=== PATIENT | female | born 1950 | race Caucasian/White ===

== ENCOUNTER 2018-05-04 11:40 | Outpatient (REF) | payer MEDICARE, BC, SELFPAY | END 2018-05-04 12:00 | LOC: NCHCN 11:40 | PROVIDERS: PCP Internal Medicine; Visit Provider Nurse Practitioner Family | DX: N89.8 Other specified noninflammatory disorders of vagina (principal); B37.2 Candidiasis of skin and nail; E11.9 Type 2 diabetes mellitus without complications | CPT/HCPCS: 87480; 87510; 87660 ==

== ENCOUNTER 2018-05-11 00:49 | Outpatient (CLI) | payer MEDICARE, BC, SELFPAY ==
--- NOTE | 2018-05-11 12:00 | DI.MAMMO_ITS ---
SYMPTOM/DIAGNOSIS: SCREENING, FAMILY H/O BREAST CA, Z80.3 MAMMOGRAMS: Mammograms were interpreted according to the usual protocol including computer analysis with CAD system, tomosynthesis and C view imaging. Comparison is made with exams from 8411-9417. The breasts are composed of scattered fibroglandular densities, breast density, Category B. No suspicious masses or suspicious microcalcifications are seen. There has been no significant change. IMPRESSION: Category 1, negative mammogram. Yearly screening mammography is recommended. RUST ASSESSMENT OF FINDINGS: Negative. Category 1. Patient will receive a letter notifying them of these results. BI-RADS category B. There are scattered areas of fibroglandular density.
== END 2018-05-11 01:09 ==
PROVIDERS: PCP Internal Medicine; Visit Provider Nurse Practitioner Family
DX: Z12.31 Encounter for screening mammogram for malignant neoplasm of breast (principal); Z80.3 Family history of malignant neoplasm of breast
CPT/HCPCS: 77063; 77067

== ENCOUNTER 2018-08-03 12:16 | Outpatient (REF) | payer MEDICARE, BC, SELFPAY ==
[2018-08-03 21:32] LABS: Abs Immature Grans 0.01 k/cumm (0.0-0.09); Absolute Basophil Count 0.02 k/cumm (0.0-0.2); Absolute Eosinophil Count 0.29 k/cumm (0.0-0.7); Absolute Monocyte Count 0.66 k/cumm (0.11-0.7); Basophils % 0.3; Eosinophils % 4.2; HCT 39.9 % (36.0-46.0); HGB 12.9 g/dL (12.0-15.5); Immature Grans % 0.1; Lymphocytes % 27.2; Mean Corp. HGB Concentration 32.3 g/dL (32.0-36.0); Mean Corpuscular Hemoglobin 28.4 pg (27.0-33.0); Mean Corpuscular Volume 87.7 fL (80-95); Mean Platelet Volume 12.5 fL (8.0-11.0); Monocytes % 9.5; Neutrophils % 58.7; Platelet Count 261 x1000/uL (130-400); RBC 4.55 m/cumm (4.00-5.20); RBC Distribution Width 15.7 % (11.7-14.6); White Blood Cell Count 6.98 k/cumm (4.4-10.8)
[2018-08-03 21:34] LABS: Iron 56 ug/dL (50-175)
[2018-08-03 21:43] LABS: ALT 27 U/L (12-78); AST 16 U/L (15-37); Albumin 3.7 g/dL (3.4-5.0); Alkaline Phosphatase 86 U/L (46-116); Anion Gap 14.5 mmol/L (3-11); BUN 15 mg/dL (7-18); Bilirubin, Total 0.5 mg/dL (0.2-1.0); CO2 24.5 mmol/L (21.0-32.0); Calcium 9.7 mg/dL (8.5-10.1); Chloride 103 mmol/L (98-107); Glucose 131 mg/dL (70-100); Potassium 4.7 mmol/L (3.5-5.1); Sodium 142 mmol/L (136-145); TSH (W/Ref FT4) 0.57 uIU/mL (0.358-3.74); Total Protein 6.9 g/dL (6.4-8.2)
== END 2018-08-03 12:36 ==
LOC: NCHCN 12:16
PROVIDERS: PCP Internal Medicine; Visit Provider Nurse Practitioner Family
DX: D50.9 Iron deficiency anemia, unspecified (principal); I10 Essential (primary) hypertension; E11.9 Type 2 diabetes mellitus without complications; F32.9 Major depressive disorder, single episode, unspecified; G47.30 Sleep apnea, unspecified
CPT/HCPCS: 80053; 83540; 84443; 85025

== ENCOUNTER 2019-09-03 14:51 | Outpatient (REF) | payer MEDICARE, BC, SELFPAY ==
[2019-09-03 21:34] LABS: Abs Immature Grans 0.01 k/cumm (0.0-0.09); Absolute Basophil Count 0.01 k/cumm (0.0-0.2); Absolute Eosinophil Count 0.23 k/cumm (0.0-0.7); Absolute Lymphocyte Count 1.95 k/cumm (1.2-3.4); Absolute Monocyte Count 0.73 k/cumm (0.11-0.7); Absolute Neutrophil Count 4.25 k/cumm (1.2-6.7); Basophils % 0.1; Eosinophils % 3.2; HCT 41.3 % (36.0-46.0); HGB 13.1 g/dL (12.0-15.5); Immature Grans % 0.1 %; Lymphocytes % 27.2; Mean Corp. HGB Concentration 31.7 g/dL (32.0-36.0); Mean Corpuscular Hemoglobin 27.8 pg (27.0-33.0); Mean Corpuscular Volume 87.5 fL (80-95); Mean Platelet Volume 12.5 fL (8.0-11.0); Monocytes % 10.2; Neutrophils % 59.2; Platelet Count 274 x1000/uL (130-400); RBC 4.72 m/cumm (4.00-5.20); RBC Distribution Width 15.3 % (11.7-14.6); White Blood Cell Count 7.18 k/cumm (4.4-10.8)
[2019-09-03 21:42] LABS: Iron 56 ug/dL (50-170)
[2019-09-03 21:53] LABS: ALT 23 U/L (14-59); AST 17 U/L (15-37); Albumin 3.7 g/dL (3.4-5.0); Alkaline Phosphatase 80 U/L (46-116); Anion Gap 8.7 mmol/L (3-11); BUN 21 mg/dL (7-18); Bilirubin, Total 0.5 mg/dL (0.2-1.0); CO2 27.3 mmol/L (21.0-32.0); CREATININE 0.71 mg/dL (0.55-1.02); Calcium 9.3 mg/dL (8.5-10.1); Chloride 102 mmol/L (98-107); Glucose 95 mg/dL (74-106); Potassium 4.6 mmol/L (3.5-5.1); Sodium 138 mmol/L (136-145); TSH (W/Ref FT4) 0.49 uIU/mL (0.36-3.74); Total Protein 6.8 g/dL (6.4-8.2)
== END 2019-09-03 15:11 ==
LOC: NCHCN 14:51
PROVIDERS: PCP Internal Medicine; Visit Provider Nurse Practitioner Family
DX: D50.9 Iron deficiency anemia, unspecified (principal); B37.2 Candidiasis of skin and nail; M85.80 Other specified disorders of bone density and structure, unspecified site; M19.90 Unspecified osteoarthritis, unspecified site; F32.9 Major depressive disorder, single episode, unspecified; E11.9 Type 2 diabetes mellitus without complications; I10 Essential (primary) hypertension; D12.6 Benign neoplasm of colon, unspecified; K76.0 Fatty (change of) liver, not elsewhere classified; R73.03 Prediabetes; E78.5 Hyperlipidemia, unspecified
CPT/HCPCS: 80053; 83540; 84443; 85025

== ENCOUNTER → 2019-11-05 10:33 | Outpatient (BNVA) | payer MEDICARE, BC, SELFPAY | PROVIDERS: PCP Internal Medicine; Referring Provider Internal Medicine; Visit Provider Physical Therapy Assistant | DX: Z12.11 Encounter for screening for malignant neoplasm of colon (principal); Z86.010 Personal history of colon polyps; E11.9 Type 2 diabetes mellitus without complications; Z79.4 Long term (current) use of insulin; I10 Essential (primary) hypertension ==

== ENCOUNTER 2019-11-22 11:13 | Day surgery (SDC) | payer MEDICARE, BC, SELFPAY ==
--- NOTE | 2019-11-22 06:52 | W.COLOREPORT ---
Date of service: 11/22/19 Time of Service: 12:23 Colonoscopy Report Date of procedure: 11/22/19 Pre-op diagnosis general: Hx of polyps Post-op diagnosis procedure note: same Procedure: Colonoscopy Surgeon: Zahida Martin Anesthesia proc note operative: other (General/ ASA 3/Ishmael You, PADMA) Estimated blood loss (mL): 0 Pathology: none sent Complications: None Disposition: same day Indications: The patient is here for Colonoscopy pre-op. Her last screening was in 2014 and was remarkable for tubular adenoma. She has no family history of colon cancer. She has not had any bowel habit changes. -Discussed colonoscopy bowel prep as well as the procedure. Discussed possible complications of the procedure to include bleeding, pain, perforation, missed small lesion/polyp, sore throat, aspiration and adverse reaction to the medications. Questions were answered to patient?s satisfaction. No guarantees were implied or given. Prep: Miralax/Dulcolax Procedure Start Time: 12:23 Procedure End Time: 12:52 Retraction Time: 16 minutes Findings: Normal colon Procedure Description: After informed consent was obtained the patient was taken to the procedure room and placed in a left decubitous position. Monitors were applied and a time out was done. The patients name, date of , procedure, allergies to medications and metal in their body was reviewed. The patient was then sedated. Once sedated and comfortable a rectal exam was done. External exam was normal. Internal exam revealed a normal sphincter tone and no palpable masses. The scope was then introduced and retro-flexed. No internal hemorrhoids were identified. The scope was then advanced to the cecum without difficulty. The ileocecal valve and appendiceal orifice were identified. The prep was adequate. The scope was then slowly retracted over 16 minutes back into the rectum. There were no polyps and no diverticula. The scope was removed and the patient was woken up and taken back to Same day surgery in stable condition. The patient tolerated the procedure well and there were no immediate complications. Follow up: The patient should follow up in 5 years unless they develop changes in bowel habits or other new gastrointestinal complaints.
--- NOTE | 2019-11-22 06:53 | W.PM.DSUDISC ---
Discharge Plan Disposition Patient Disposition: HOME Condition: Good Discharge Details Reason For Visit: colonoscopy Attending Provider: Zahida Martin Primary Care Provider: Mainor Bravo Home Meds and New Rx's Prescriptions: Continued acetaminophen [Tylenol] 325 MG tablet 650 mg PO Q4H PRN RF: 0 aspirin [Aspirin Low-Strength] 81 MG tablet,chewable 81 mg PO DAILY RF: 0 omeprazole 20 mg capsule,delayed release(DR/EC) 20 mg PO DAILY RF: 0 Lantus Solostar U-100 Insulin 100 unit/mL (3 mL) insulin pen 55 unit subcut HS RF: 0 glipizide 5 mg tablet 10 mg PO DAILY RF: 0 Jardiance 10 mg tablet 10 mg PO DAILY RF: 0 ascorbic acid (vitamin C) 500 mg capsule PO RF: 0 ferrous gluconate 324 mg (37.5 mg iron) tablet 324 mg PO DAILY RF: 0 cetirizine [Zyrtec] 10 mg tablet 10 mg PO DAILY PRNRF: 0 simvastatin 20 mg tablet 40 mg PO HS RF: 0 fluoxetine 20 mg capsule 20 mg PO DAILY RF: 0 levothyroxine 200 mcg tablet 225 mcg PO DAILY RF: 0 Adult Probiotic 3 billion cell capsule 3,000 mmu cells PO DAILY RF: 0 calcium carbonate-vit D3-min 600 mg calcium- 400 unit tablet 1 tab PO BID RF: 0 amoxicillin 500 mg capsule 500 mg PO PRN RF: 0 lisinopril 5 MG tablet 5 mg PO DAILY RF: 0 metformin [Glucophage] 1,000 MG tablet 1 tab PO BID RF: 0 multivitamin 1 EACH capsule 1 cap PO DAILY RF: 0 Discontinued bisacodyl [Dulcolax (bisacodyl)] 5 mg tablet,delayed release (DR/EC) 5 mg PO ONCE Qty: 4 RF: 0 polyethylene glycol 3350 17 gram/dose powder 238 g PO ONCE Qty: 238 RF: 0 Discharge Instructions Additional Instructions: Findings: normal colon Follow up: 5 years Please call if you develop: fevers >101.5 Nausea or Vomiting Abdominal pain that is not transient DAY SURGERY UNIT POST ENDOSCOPY INSTRUCTIONS 1. Because there will be medication in your system for the next 24 hours, you may feel a little sleepy. Your coordination will be affected. Therefore: a. Do not drive or operate dangerous equipment for 24 hours. b. Do not drink alcohol beverages for 24 hours (not even beer). c. Plan to go home and rest for the day. 2. Generally there are no restrictions on your activity after a day or so has gone by, but you may feel a bit fatigued for a few days. 3 After you arrive home you may have a light meal and return to a normal diet as you can tolerate it without feeling sick to your stomach. 4. After surgery, you may feel pain or discomfort. This should be only transient, but if it persists please contact your doctor. 5. If there are any questions regarding the findings of your procedure, please feel free to contact your doctor. 6. If you are unable to contact your doctor with a problem, contact the hospital at [phone]. 7. Continue all your regular medications unless directed otherwise. I understand the above instructions and have no questions. Signature of Patient or Responsible Adult Escort Date/Time Name of Responsible Adult Escort Signature of Nurse Date/Time Activity:: Activity as Tolerated Diet:: As Tolerated Discharge Orders Discharge Orders: Discharge Order (Routine); Ordered 11/22/19 Ordered By: Zahida Martin
[2019-11-22 11:29] VITALS: BP 154/79; PULSE 70; RESP 18; TEMP 36.5; O2SAT 98
[2019-11-22] MEDS: Lactated Ringers 1,000 ML 80 ML IV ×2 (11:50→12:48)
[2019-11-22 13:30] VITALS: BP 142/78; PULSE 79; RESP 16; TEMP 36.2; O2SAT 94
== END 2019-11-22 14:00 | disposition home or self-care (01) ==
PROVIDERS: PCP Internal Medicine; Visit Provider Surgery
PROC: 0DJD8ZZ Inspection of Lower Intestinal Tract, Via Natural or Artificial Opening Endoscopic (ICD-10-PCS; CPT 45378; principal; 2019-11-22 12:30)
DX: Z12.11 Encounter for screening for malignant neoplasm of colon (principal); Z86.010 Personal history of colon polyps; E11.9 Type 2 diabetes mellitus without complications; E03.9 Hypothyroidism, unspecified
CPT/HCPCS: G0105; J2001

== ENCOUNTER 2019-11-25 00:16 | Outpatient (CLI) | payer MEDICARE, BC, SELFPAY ==
--- NOTE | 2019-11-25 15:25 | DI.DEXA_ITS ---
EXAM: XR DEXA BONE DENSITY W/WO SAMUEL CLINICAL HISTORY: DISORDER OF BONE DENSITY M85.88, PREVENTIVE HEALTH CARE Z00.00 TECHNIQUE: COMPARISON: No exams were available for comparison FINDINGS: DEXA scan was performed according to the usual protocol. Findings for left hip scanning are T-score -0.7 with left femoral neck T-score -1 point. Prior study of August 2016 showed left hip T-score -0.7. Lumbar spine scan shows T-score 1.6. Prior study of 2016 showed lumbar T-score 0.8. Left forearm scanning shows T-score -0.7, prior study of 2016 showed T-score -1.0. IMPRESSION: Findings are consistent with osteopenia according to the WHO criteria. Lateral vertebral scanogram s hows no evidence of a vertebral compression fracture. RADIATION DOSE DELIVERED: Total DLP
--- NOTE | 2019-11-25 15:49 | DI.MAMMO_ITS ---
EXAM: MAMMO SCREENING CLINICAL HISTORY: SCREENING Z12.31 TECHNIQUE: Mammograms were interpreted according to the usual protocol including computer analysis w [employer] CAD system, tomosynthesis and C-view imaging. COMPARISON: FINDINGS: Breasts are of moderate density with fairly symmetrical distribution of fibroglandular tissue. No do minant mass or clumped microcalcification is identified in either breast. The current examination is compared with previous examinations including February 2017 and April 2018 and there has been no pio s interval change in appearance in comparison with the prior studies. IMPRESSION: No specific evidence of malignancy at this time. Routine screening examinations are suggested at yea rly intervals due to the family history of breast carcinoma. BI-RADS Category 1 - Negative Breast Density - Category B - Scattered areas of fibroglandular density
== END 2019-11-25 00:36 ==
PROVIDERS: PCP Internal Medicine; Visit Provider Nurse Practitioner Family
DX: Z12.31 Encounter for screening mammogram for malignant neoplasm of breast (principal); Z80.3 Family history of malignant neoplasm of breast; M85.88 Other specified disorders of bone density and structure, other site; Z00.00 Encounter for general adult medical examination without abnormal findings
CPT/HCPCS: 77063; 77067; 77080

== ENCOUNTER 2020-06-27 10:40 | Outpatient (REF) | payer MEDICARE, BC, SELFPAY ==
[2020-06-27 13:58] LABS: Abs Immature Grans 0.02 10^3/uL (0.0-0.06); Absolute Basophil Count 0.02 10^3/uL (0.0-0.2); Absolute Eosinophil Count 0.32 10^3/uL (0.0-0.7); Absolute Lymphocyte Count 1.53 10^3/uL (1.2-3.4); Absolute Monocyte Count 0.63 10^3/uL (0.1-0.8); Absolute Neutrophil Count 4.48 10^3/uL (1.2-6.7); Basophils % 0.3; Eosinophils % 4.6; HCT 40.8 % (36.0-46.0); HGB 12.9 g/dL (11.2-15.7); Immature Grans % 0.3; Lymphocytes % 21.9; MCH 27.6 pg (27.0-33.0); MCHC 31.6 % (32.0-36.0); MCV 87.2 fL (80-95); MPV 12.1 fL (8.0-11.0); Neutrophils % 63.9; Nucleated RBC 0 %; Platelet Count 264 10^3/uL (130-400); RBC 4.68 10^6/uL (3.93-5.22); RDW-SD 48.3 fL
[2020-06-27 14:29] LABS: Iron 51 ug/dL (50-170); Total Iron Binding Capacity 379 ug/dL (250-450); Transferrin Sat 13 % (15-50)
[2020-06-27 14:33] LABS: AST 12 U/L (15-37); Albumin 3.9 g/dL (3.4-5.0); Alkaline Phosphatase 82 U/L (46-116); Anion Gap 12.4 mmol/L (3-11); Bilirubin, Total 0.6 mg/dL (0.2-1.0); CO2 24.6 mmol/L (21.0-32.0); CREATININE 0.8 mg/dL (0.55-1.02); Calcium 9.4 mg/dL (8.5-10.1); Chloride 103 mmol/L (98-107); Ferritin 29 ng/mL (8-252); Glucose 112 mg/dL (74-106); Potassium 4.6 mmol/L (3.5-5.1); Sodium 140 mmol/L (136-145)
[2020-06-27 14:45] LABS: ALT 24 U/L (14-59); BUN 23 mg/dL (7-18)
[2020-06-27 15:07] LABS: FREE T4 1.39 ng/dL (0.76-1.46)
== END 2020-06-27 10:41 | disposition home or self-care (01) ==
LOC: NCHCN 10:40
PROVIDERS: PCP Internal Medicine; Visit Provider Nurse Practitioner Family
DX: D50.9 Iron deficiency anemia, unspecified (principal); E11.9 Type 2 diabetes mellitus without complications; I10 Essential (primary) hypertension; K30 Functional dyspepsia
CPT/HCPCS: 80053; 82728; 83540; 83550; 84439; 84443; 85025

== ENCOUNTER 2020-08-10 13:50 | Outpatient (REF) | payer MEDICARE, BC, SELFPAY ==
[2020-08-10 14:41] LABS: TSH (W/Ref FT4) 0.44 uIU/mL (0.36-3.74)
== END 2020-08-10 13:51 | disposition home or self-care (01) ==
LOC: NCHCN 13:50
PROVIDERS: PCP Internal Medicine; Visit Provider Nurse Practitioner Family
DX: E03.9 Hypothyroidism, unspecified (principal)
CPT/HCPCS: 84443

== ENCOUNTER 2020-11-28 01:08 | Outpatient (CLI) | payer MEDICARE, BC, SELFPAY ==
--- NOTE | 2020-11-28 11:46 | DI.MAMMO_ITS ---
Exam(s) MAMMO SCREENING EXAM: MAMMO SCREENING CLINICAL HISTORY: SCREENING,FAMILY H/O BREAST CA,Z80.3,Z12.39. TECHNIQUE: Bilateral full field digital CC and MLO mammographic images were obtained with 3D tomosyn thesis and utilizing computer aided detection (CAD). COMPARISON: Prior mammograms dating back to 2011, the most recent being November 2019. Significant family history here. Both her mother and 2 aunts were apparently diagnosed with breast c ancer. FINDINGS: There has been no significant change in the appearance and distribution of the fibroglandular tissue. A new ground of peripherally calcified small nodule in the anterior lateral aspect of the right valerie ast has the appearance of benign calcified oil cyst. In the opposite-left breast 3D cc imaging there is a noncalcified well-defined nodule located 14 cm i n from the nipple which is unchanged from prior studies therefore benign. There are no new spiculated masses nor malignant appearing microcalcification groups. There is no significant architectural distortion nor skin thickening-retraction. IMPRESSION: Benign findings. No radiographic evidence of malignancy. BI-RADS Category 2 - Benign Findings Breast Density - Category B - Scattered areas of fibroglandular density Breast density Category C or D implies that the patient has dense breast tissue. Dense breast tissue can make it harder to find cancer on a mammogram. Dense breast tissue is also associated with an incr eased risk of breast cancer. This information about the result of the mammogram report was provided to the patient to raise their awareness. Use this report when you speak with the patient about their risks for breast cancer, which includes their family history. At that time, you may recommend additional screening tests (Ultrasoun d or MRI) as these tests may add significant information. A negative radiographic report should not delay biopsy if a dominant or clinically suspicious mass is present. Up to ten percent of cancers are not identified on mammography. A negative report may reinforce clinical impression. Adenosis and dense breasts may obscure an underlying neoplasm. False positive reports average 6 to 10%. Patient will receive a letter notifying them of these results.
== END 2020-11-28 01:28 ==
PROVIDERS: PCP Internal Medicine; Visit Provider Nurse Practitioner Family
DX: Z12.31 Encounter for screening mammogram for malignant neoplasm of breast (principal); Z80.3 Family history of malignant neoplasm of breast
CPT/HCPCS: 77063; 77067

== ENCOUNTER 2021-07-03 16:56 | Outpatient (REF) | payer MEDICARE, SELFPAY ==
[2021-07-03 16:16] LABS: Abs Immature Grans 0.01 10^3/uL (0.0-0.06); Absolute Basophil Count 0.03 10^3/uL (0.0-0.2); Absolute Eosinophil Count 0.28 10^3/uL (0.0-0.7); Absolute Lymphocyte Count 1.65 10^3/uL (1.2-3.4); Absolute Neutrophil Count 3.74 10^3/uL (1.2-6.7); Basophils % 0.5; Eosinophils % 4.4; HCT 41.9 % (36.0-46.0); Immature Grans % 0.2; Lymphocytes % 26.1; MCH 27.6 pg (27.0-33.0); MCV 89 fL (80-95); MPV 12.2 fL (8.0-11.0); Monocytes % 9.5; Neutrophils % 59.3; Platelet Count 230 10^3/uL (130-400); RBC 4.71 10^6/uL (3.93-5.22); RDW 14.7 % (11.7-14.6); RDW-SD 48.1 fL; WBC 6.31 10^3/uL (4.4-10.8)
[2021-07-03 16:53] LABS: Iron 63 ug/dL (50-170); Total Iron Binding Capacity 344 ug/dL (250-450); Transferrin Sat 18 % (15-50)
[2021-07-03 17:24] LABS: AST 16 U/L (15-37); Albumin 3.9 g/dL (3.4-5.0); Alkaline Phosphatase 83 U/L (46-116); Anion Gap 12.8 mmol/L (3-11); BUN 19 mg/dL (7-18); Bilirubin, Total 0.5 mg/dL (0.2-1.0); CO2 23.2 mmol/L (21.0-32.0); CREATININE 0.8 mg/dL (0.55-1.02); Chloride 105 mmol/L (98-107); Ferritin 36 ng/mL (8-252); Glucose 142 mg/dL (74-106); Potassium 4.4 mmol/L (3.5-5.1); Sodium 141 mmol/L (136-145); TSH (W/Ref FT4) 0.44 uIU/mL (0.36-3.74); Total Protein 6.9 g/dL (6.4-8.2); Vitamin B12 329 pg/mL (193-986)
[2021-07-03 17:36] LABS: ALT 26 U/L (14-59); Magnesium 1.9 mg/dL (1.8-2.4)
[2021-07-04 10:51] LABS: Syphilis Serology (RPR) Negative (Negative)
== END 2021-07-03 16:57 | disposition home or self-care (01) ==
LOC: NCHCN 16:56
PROVIDERS: PCP Internal Medicine; Visit Provider Nurse Practitioner Family
DX: E11.9 Type 2 diabetes mellitus without complications (principal); I10 Essential (primary) hypertension; M79.9 Soft tissue disorder, unspecified; K59.00 Constipation, unspecified; M25.50 Pain in unspecified joint; D50.9 Iron deficiency anemia, unspecified; Z79.899 Other long term (current) drug therapy
CPT/HCPCS: 80053; 82607; 82728; 83540; 83550; 83735; 84443; 85025; 86592

== ENCOUNTER → 2021-07-26 01:25 | Outpatient (CLI) | payer MEDICARE, SELFPAY ==
--- NOTE | 2021-07-26 | DI.US_ITS ---
Exam(s) US SOFT TISSUE EXTREMITY EXAM: US SOFT TISSUE EXTREMITY CLINICAL HISTORY: LEFT FOOT SWELLING R22.42 MASS M79.9 VARICOSE VEINS I83.90. TECHNIQUE: Ultrasound was performed using standard protocol. COMPARISON: US BILATERAL EXTREMITY US from 01/25/2013 FINDINGS: Sonographic assessment utilizing grayscale and color Doppler imaging was performed and targeted to th e area of clinical concern. Area of concern is on the anterior aspect of the left distal calf. There is no obvious skin dehiscence. However, there is an abnormal hypoechoic area in the superficia l aspect of the subcutaneous fat, this measuring approximately 1.5 x 2.3 x 0.7 cm. This area is somewhat hypoechoic compared to the surrounding subcutaneous fat and appears hyperemic. This area is hyperemic on color Doppler interrogation. There are no obvious thrombosed veins in thi s immediate region. IMPRESSION: Above findings are most probably consistent with a developing subcutaneous infectious-inflammatory pr ocess. Follow-up recommended to rule out developing abscess.
== END ==
PROVIDERS: PCP Internal Medicine; Visit Provider Nurse Practitioner Family
DX: I83.90 Asymptomatic varicose veins of unspecified lower extremity (principal); R22.42 Localized swelling, mass and lump, left lower limb; M79.9 Soft tissue disorder, unspecified
CPT/HCPCS: 76881

== ENCOUNTER → 2021-12-04 02:39 | Outpatient (CLI) | payer MEDICARE, SELFPAY ==
--- NOTE | 2021-12-04 12:30 | DI.MAMMO_ITS ---
Exam(s) MAMMO SCREENING EXAM: MAMMO SCREENING CLINICAL HISTORY: SCREENING, Z12.39; FAMILY H/O BREAST CA, Z80.3 TECHNIQUE: Bilateral full field digital CC and MLO mammographic images were obtained with 3D tomosyn thesis and utilizing computer aided detection (CAD). COMPARISON: Available for comparison. FINDINGS: Masses/Architectural Distortion: None seen. Microcalcifications: No suspicious pleomorphic-type are seen. Skin Thickening/Nipple Retraction: None. IMPRESSION: 1. No significant interval change with no specific features of malignancy noted. 2. Unless there is more urgent need, screening mammography is recommended, as per [employer] guidelines. BI-RADS Category 1 - Negative Breast Density - Category B - Scattered areas of fibroglandular density Breast density category C or D implies that the patient has dense breast tissue. Dense breast tissue is very common and is not abnormal but dense breast tissue can make it harder to find cancer on a ma mmogram. Also, dense breast tissue may increase their breast cancer risk. This information about the result of the mammogram report was provided to the patient to raise their awareness. Use this report when you speak with the patient about their risks for breast cancer, which includes their family hist ory. At that time, you may recommend for more screening tests (Ultrasound or MRI) as they might be us eful based on their risk. A negative radiographic report should not delay biopsy if a dominant or clinically suspicious mass is present. Up to ten percent of cancers are not identified on mammography. A negative report may reinforce clinical impression. Adenosis and dense breasts may obscure an underlying neoplasm. False positive reports average 6 to 10%. Patient will receive a letter notifying them of these results.
== END ==
PROVIDERS: PCP Internal Medicine; Visit Provider Nurse Practitioner Family
DX: Z12.31 Encounter for screening mammogram for malignant neoplasm of breast (principal)
CPT/HCPCS: 77063; 77067

== ENCOUNTER 2022-08-19 15:58 | Outpatient (REF) | payer MEDICARE, SELFPAY ==
[2022-08-19 23:15] LABS: Abs Immature Grans 0.04 10^3/uL (0.0-0.06); Absolute Basophil Count 0.06 10^3/uL (0.0-0.2); Absolute Eosinophil Count 0.25 10^3/uL (0.0-0.7); Absolute Lymphocyte Count 1.73 10^3/uL (1.2-3.4); Absolute Monocyte Count 0.68 10^3/uL (0.1-0.8); Absolute Neutrophil Count 4.46 10^3/uL (1.2-6.7); Basophils % 0.8; Eosinophils % 3.5; HCT 41.6 % (36.0-46.0); HGB 13.4 g/dL (11.2-15.7); Immature Grans % 0.6; MCH 28.5 pg (27.0-33.0); MCHC 32.2 % (32.0-36.0); MCV 89 fL (80-95); MPV 12.6 fL (8.0-11.0); Monocytes % 9.4; Neutrophils % 61.7; Platelet Count 234 10^3/uL (130-400); RDW 13.7 % (11.7-14.6); RDW-SD 44.4 fL; WBC 7.22 10^3/uL (4.4-10.8)
[2022-08-19 23:29] LABS: Iron 67 ug/dL (50-170); Total Iron Binding Capacity 366 ug/dL (250-450); Transferrin Sat 18 % (15-50)
[2022-08-19 23:52] LABS: Vitamin D 25 Total 17.7 ng/mL (30-100)
[2022-08-19 23:55] LABS: ALT 41 U/L (14-59); AST 21 U/L (15-37); Albumin 3.9 g/dL (3.4-5.0); Alkaline Phosphatase 88 U/L (46-116); Anion Gap 10.5 mmol/L (3-11); BUN 23 mg/dL (7-18); Bilirubin, Total 0.5 mg/dL (0.2-1.0); CO2 25.5 mmol/L (21.0-32.0); CREATININE 0.8 mg/dL (0.55-1.02); Calcium 9.3 mg/dL (8.5-10.1); Chloride 105 mmol/L (98-107); Estimated GFR 78.72 (mL/min/1.73m2); Ferritin 39 ng/mL (8-252); Glucose 160 mg/dL (74-106); Magnesium 1.7 mg/dL (1.8-2.4); Potassium 4.6 mmol/L (3.5-5.1); Sodium 141 mmol/L (136-145); Total Protein 7.1 g/dL (6.4-8.2); Vitamin B12 463 pg/mL (193-986)
[2022-08-20 00:24] LABS: FREE T4 1.29 ng/dL (0.76-1.46)
== END 2022-08-19 15:59 | disposition home or self-care (01) ==
LOC: NCHCN 15:58
PROVIDERS: PCP Internal Medicine; Visit Provider Nurse Practitioner Family
DX: D50.9 Iron deficiency anemia, unspecified (principal); M85.80 Other specified disorders of bone density and structure, unspecified site; F32.A Depression, unspecified; E11.9 Type 2 diabetes mellitus without complications; I10 Essential (primary) hypertension; J30.2 Other seasonal allergic rhinitis; G47.30 Sleep apnea, unspecified; E03.9 Hypothyroidism, unspecified
CPT/HCPCS: 80053; 82306; 82607; 82728; 83540; 83550; 83735; 84439; 84443; 85025

== ENCOUNTER 2022-10-07 13:09 | Outpatient (REF) | payer MEDICARE, SELFPAY ==
[2022-10-07 21:25] LABS: TSH (W/Ref FT4) 0.34 uIU/mL (0.36-3.74)
[2022-10-07 21:41] LABS: FREE T4 1.23 ng/dL (0.76-1.46)
== END 2022-10-07 13:10 | disposition home or self-care (01) ==
LOC: NCHCN 13:09
PROVIDERS: PCP Internal Medicine; Visit Provider Nurse Practitioner Family
DX: E03.9 Hypothyroidism, unspecified (principal)
CPT/HCPCS: 84439; 84443

== ENCOUNTER → 2022-11-29 02:49 | Outpatient (CLI) | payer MEDICARE, SELFPAY ==
--- NOTE | 2022-11-29 | DI.DEXA_ITS ---
Exam(s) XR DEXA BONE DENSITY W/WO SAMUEL EXAM: XR DEXA BONE DENSITY W/WO SAMUEL CLINICAL HISTORY: OSTEOPENIA M85.80 POSTMENOPAUSAL Z78.0 TECHNIQUE: [employer] C densitometer analysis of left hip, lumbar spine and left forearm. Lat eral survey image of the thoracic and lumbar spine. COMPARISON: DX from 09/03/2016 CR XR DEXA BONE DENSITY W/WO SAMUEL from 11/25/2019 FINDINGS: Lateral view of the thoracic and lumbar spine shows no evidence of compression fractures. Bone mineral density measurements of the lumbar spine correspond to a total T-score of 1.7, in the n ormal range. This represents an 8 percent increase from 2017 but is not significantly changed from 020. Bone mineral density measurements of the left hip correspond to a total T-score of -1.2. The femora l neck T-score is -2.8, in the osteoporotic range. This represents a 7.1 percent decrease from 2019 .. Theleft forearm bone mineral density measurements correspond to a T-score of the distal 3rd of -1.2, in the osteopenic range. This represents a 4.5 percent decrease from 2019 and a 2.5 percent decreas e from 2017.. IMPRESSION: Normal bone mineral density of the lumbar spine. Osteoporosis of the left hip. Osteopenia of the fo rearm.
== END ==
PROVIDERS: PCP Internal Medicine; Visit Provider Nurse Practitioner Family
DX: Z78.0 Asymptomatic menopausal state (principal); Z13.820 Encounter for screening for osteoporosis; M81.0 Age-related osteoporosis without current pathological fracture; Z12.31 Encounter for screening mammogram for malignant neoplasm of breast; Z80.3 Family history of malignant neoplasm of breast
CPT/HCPCS: 77080

== ENCOUNTER → 2022-12-12 02:03 | Outpatient (CLI) | payer MEDICARE, SELFPAY ==
--- NOTE | 2022-12-12 | DI.MAMMO_ITS ---
Exam(s) MAMMO SCREENING EXAM: MAMMO SCREENING CLINICAL HISTORY: SCREENING, FAMILY H/O BREAST CA,Z80.3,Z12.39 TECHNIQUE: Mammograms were interpreted according to the usual protocol including computer analysis w [employer] CAD system, tomosynthesis and C-view imaging. COMPARISON: 2012 through 2021 FINDINGS: The breasts are composed of scattered fibroglandular densities, Breast Density category B. No suspicious masses or suspicious microcalcifications are seen. No skin thickening or abnormal axillary lymph nodes are seen. There has been no significant change from prior exams. IMPRESSION: BI-RADS Category 1, Negative mammogram Yearly screening mammography is recommended. Breast Density - Category B, scattered fibroglandular densities. A negative radiographic report should not delay biopsy if a dominant or clinically suspicious mass is present. Up to ten percent of cancers are not identified on mammography. A negative report may reinforce clinical impression. Adenosis and dense breasts may obscure an underlying neoplasm. False positive reports average 6 to 10%. Patient will receive a letter notifying them of these results.
== END ==
PROVIDERS: PCP Internal Medicine; Visit Provider Nurse Practitioner Family
DX: Z80.3 Family history of malignant neoplasm of breast (principal); Z12.31 Encounter for screening mammogram for malignant neoplasm of breast
CPT/HCPCS: 77063; 77067

== ENCOUNTER 2022-12-18 18:10 | Outpatient (CLI) | payer MEDICARE, SELFPAY ==
[2022-12-18 17:10] LABS: Abs Immature Grans 0.03 10^3/uL (0.0-0.06); Absolute Basophil Count 0.03 10^3/uL (0.0-0.2); Absolute Eosinophil Count 0.27 10^3/uL (0.0-0.7); Absolute Lymphocyte Count 1.43 10^3/uL (1.2-3.4); Absolute Monocyte Count 0.56 10^3/uL (0.1-0.8); Absolute Neutrophil Count 5.81 10^3/uL (1.2-6.7); Basophils % 0.4; Eosinophils % 3.3; HCT 40.5 % (36.0-46.0); HGB 13.1 g/dL (11.2-15.7); Immature Grans % 0.4; Lymphocytes % 17.6; MCH 28.4 pg (27.0-33.0); MCHC 32.3 % (32.0-36.0); MCV 88 fL (80-95); MPV 11.3 fL (8.0-11.0); Monocytes % 6.9; Neutrophils % 71.4; Platelet Count 288 10^3/uL (130-400); RBC 4.62 10^6/uL (3.93-5.22); RDW 14.3 % (11.7-14.6); RDW-SD 45.8 fL; WBC 8.13 10^3/uL (4.4-10.8)
[2022-12-18 17:49] LABS: ALT 35 U/L (14-59); AST 28 U/L (15-37); Albumin 3.7 g/dL (3.4-5.0); Alkaline Phosphatase 99 U/L (46-116); Anion Gap 10.2 mmol/L (3-11); BUN 27 mg/dL (7-18); Bilirubin, Total 0.3 mg/dL (0.2-1.0); CO2 26.8 mmol/L (21.0-32.0); CREATININE 0.9 mg/dL (0.55-1.02); Calcium 9.6 mg/dL (8.5-10.1); Chloride 100 mmol/L (98-107); Estimated GFR 68.35 (mL/min/1.73m2); Glucose 297 mg/dL (74-106); Magnesium 1.7 mg/dL (1.8-2.4); Potassium 4.5 mmol/L (3.5-5.1); Sodium 137 mmol/L (136-145); Total Protein 7.2 g/dL (6.4-8.2); Uric Acid 5.1 mg/dL (2.6-6.0)
[2022-12-18 18:05] LABS: Cholesterol 198 mg/dL (<200); HDL Cholesterol 43 mg/dL (40-60); Triglyceride 490 mg/dL (<150)
[2022-12-18 18:15] LABS: LDL CHOLESTEROL 94 mg/dL (<100)
[2022-12-19 14:20] LABS: ESR 20 mm/hr (0-30)
[2022-12-19 14:48] LABS: C-Reactive Protein 0.61 mg/dL (0.0-0.3); TSH (W/Ref FT4) 0.68 uIU/mL (0.36-3.74)
[2022-12-20 12:42] LABS: ANA Interpretation Negative (Negative)
[2023-01-01 10:14] LABS: Immunophenotyping FC (DHMC) See Comments
== END 2022-12-18 18:11 | disposition home or self-care (01) ==
LOC: LBO 18:13
PROVIDERS: PCP Nurse Practitioner Family; Visit Provider Student in an Organized Health Care Education/Training Program
DX: L30.9 Dermatitis, unspecified (principal); R21 Rash and other nonspecific skin eruption
CPT/HCPCS: 36415; 80053; 80061; 83721; 85652; 88184; 88185; 83735; 84443; 84550; 85025; 86038; 86140

== ENCOUNTER 2023-02-14 16:06 | Outpatient (REF) | payer MEDICARE, SELFPAY ==
[2023-02-14 14:45] LABS: TSH (W/Ref FT4) 0.45 uIU/mL (0.36-3.74)
== END 2023-02-14 16:07 | disposition home or self-care (01) ==
LOC: NCHCN 16:06
PROVIDERS: PCP Nurse Practitioner Family; Visit Provider Nurse Practitioner Family
DX: E03.9 Hypothyroidism, unspecified (principal)
CPT/HCPCS: 84443

== ENCOUNTER → 2023-03-19 13:57 | Outpatient (BNVA) | payer MEDICARE, SELFPAY | PROVIDERS: PCP Nurse Practitioner Family; Referring Provider Nurse Practitioner Family; Visit Provider Surgery | DX: L72.3 Sebaceous cyst (principal) | CPT/HCPCS: 99202 ==

== ENCOUNTER 2023-03-24 07:12 | Outpatient (CLI) | payer MEDICARE, SELFPAY | END 2023-03-24 07:13 | disposition home or self-care (01) | PROVIDERS: PCP Nurse Practitioner Family; Visit Provider Dermatology | DX: L40.9 Psoriasis, unspecified (principal); L30.8 Other specified dermatitis | CPT/HCPCS: 96900 ==

== ENCOUNTER 2023-03-25 07:06 | Outpatient (CLI) | payer MEDICARE, SELFPAY | END 2023-03-25 07:07 | disposition home or self-care (01) | LOC: PUVA 07:07 | PROVIDERS: PCP Nurse Practitioner Family; Visit Provider Dermatology | DX: L40.9 Psoriasis, unspecified (principal); L30.8 Other specified dermatitis | CPT/HCPCS: 96900 ==

== ENCOUNTER 2023-03-28 08:33 | Outpatient (CLI) | payer MEDICARE, SELFPAY | END 2023-03-28 08:34 | disposition home or self-care (01) | LOC: PUVA 08:33 | PROVIDERS: PCP Nurse Practitioner Family; Visit Provider Dermatology | DX: L40.9 Psoriasis, unspecified (principal); L30.8 Other specified dermatitis | CPT/HCPCS: 96900 ==

== ENCOUNTER 2023-03-31 07:28 | Outpatient (CLI) | payer MEDICARE, SELFPAY | END 2023-03-31 07:29 | disposition home or self-care (01) | LOC: PUVA 07:28 | PROVIDERS: PCP Nurse Practitioner Family; Visit Provider Dermatology | DX: L40.9 Psoriasis, unspecified (principal); L30.8 Other specified dermatitis | CPT/HCPCS: 96900 ==

== ENCOUNTER 2023-04-01 06:59 | Outpatient (CLI) | payer MEDICARE, SELFPAY | END 2023-04-01 07:00 | disposition home or self-care (01) | LOC: PUVA 06:59 | PROVIDERS: PCP Nurse Practitioner Family; Visit Provider Dermatology | DX: L40.9 Psoriasis, unspecified (principal); L30.8 Other specified dermatitis | CPT/HCPCS: 96900 ==

== ENCOUNTER 2023-04-04 07:17 | Outpatient (CLI) | payer MEDICARE, SELFPAY | END 2023-04-04 07:18 | disposition home or self-care (01) | LOC: PUVA 07:18 | PROVIDERS: PCP Nurse Practitioner Family; Visit Provider Dermatology | DX: L40.9 Psoriasis, unspecified (principal); L30.8 Other specified dermatitis | CPT/HCPCS: 96900 ==

== ENCOUNTER 2023-04-07 07:48 | Outpatient (CLI) | payer MEDICARE, SELFPAY | END 2023-04-07 07:49 | disposition home or self-care (01) | LOC: PUVA 07:48 | PROVIDERS: PCP Nurse Practitioner Family; Visit Provider Dermatology | DX: L40.9 Psoriasis, unspecified (principal); L30.8 Other specified dermatitis | CPT/HCPCS: 96900 ==

== ENCOUNTER 2023-04-08 07:05 | Outpatient (CLI) | payer MEDICARE, SELFPAY | END 2023-04-08 07:06 | disposition home or self-care (01) | LOC: PUVA 07:05 | PROVIDERS: PCP Nurse Practitioner Family; Visit Provider Dermatology | DX: L40.9 Psoriasis, unspecified (principal); L30.8 Other specified dermatitis | CPT/HCPCS: 96900 ==

== ENCOUNTER 2023-04-11 08:42 | Outpatient (CLI) | payer MEDICARE, SELFPAY | END 2023-04-11 08:43 | disposition home or self-care (01) | LOC: PUVA 08:42 | PROVIDERS: PCP Nurse Practitioner Family; Visit Provider Dermatology | DX: L40.9 Psoriasis, unspecified (principal); L30.8 Other specified dermatitis | CPT/HCPCS: 96900 ==

== ENCOUNTER 2023-04-14 07:32 | Outpatient (CLI) | payer MEDICARE, SELFPAY | END 2023-04-14 07:33 | disposition home or self-care (01) | LOC: PUVA 07:32 | PROVIDERS: PCP Nurse Practitioner Family; Visit Provider Dermatology | DX: L40.9 Psoriasis, unspecified (principal); L30.8 Other specified dermatitis | CPT/HCPCS: 96900 ==

== ENCOUNTER 2023-04-15 07:05 | Outpatient (CLI) | payer MEDICARE, SELFPAY | END 2023-04-15 07:06 | disposition home or self-care (01) | LOC: PUVA 07:05 | PROVIDERS: PCP Nurse Practitioner Family; Visit Provider Dermatology | DX: L40.9 Psoriasis, unspecified (principal); L30.8 Other specified dermatitis | CPT/HCPCS: 96900 ==

== ENCOUNTER 2023-04-18 07:05 | Outpatient (CLI) | payer MEDICARE, SELFPAY | END 2023-04-18 07:06 | disposition home or self-care (01) | LOC: PUVA 07:05 | PROVIDERS: PCP Nurse Practitioner Family; Visit Provider Dermatology | DX: L40.9 Psoriasis, unspecified (principal); L30.8 Other specified dermatitis | CPT/HCPCS: 96900 ==

== ENCOUNTER 2023-04-21 07:25 | Outpatient (CLI) | payer MEDICARE, SELFPAY | END 2023-04-21 07:26 | disposition home or self-care (01) | LOC: PUVA 07:26 | PROVIDERS: PCP Nurse Practitioner Family; Visit Provider Dermatology | DX: L40.9 Psoriasis, unspecified (principal); L30.8 Other specified dermatitis | CPT/HCPCS: 96900 ==

== ENCOUNTER 2023-04-22 07:07 | Outpatient (CLI) | payer MEDICARE, SELFPAY | END 2023-04-22 07:08 | disposition home or self-care (01) | LOC: PUVA 07:07 | PROVIDERS: PCP Nurse Practitioner Family; Visit Provider Dermatology | DX: L40.9 Psoriasis, unspecified (principal); L30.8 Other specified dermatitis | CPT/HCPCS: 96900 ==

== ENCOUNTER 2023-04-25 07:10 | Outpatient (CLI) | payer MEDICARE, SELFPAY | END 2023-04-25 07:11 | disposition home or self-care (01) | LOC: PUVA 07:11 | PROVIDERS: PCP Nurse Practitioner Family; Visit Provider Dermatology | DX: L40.9 Psoriasis, unspecified (principal); L30.8 Other specified dermatitis | CPT/HCPCS: 96900 ==

== ENCOUNTER 2023-04-28 07:03 | Outpatient (CLI) | payer MEDICARE, SELFPAY | END 2023-04-28 07:04 | disposition home or self-care (01) | LOC: PUVA 07:03 | PROVIDERS: PCP Nurse Practitioner Family; Visit Provider Dermatology | DX: L40.9 Psoriasis, unspecified (principal); L30.8 Other specified dermatitis | CPT/HCPCS: 96900 ==

== ENCOUNTER 2023-04-29 07:10 | Outpatient (CLI) | payer MEDICARE, SELFPAY | END 2023-04-29 07:11 | disposition home or self-care (01) | LOC: PUVA 07:10 | PROVIDERS: PCP Nurse Practitioner Family; Visit Provider Dermatology | DX: L40.9 Psoriasis, unspecified (principal); L30.8 Other specified dermatitis | CPT/HCPCS: 96900 ==

== ENCOUNTER 2023-05-02 07:11 | Outpatient (CLI) | payer MEDICARE, SELFPAY | END 2023-05-02 07:12 | disposition home or self-care (01) | LOC: PUVA 07:12 | PROVIDERS: PCP Nurse Practitioner Family; Visit Provider Dermatology | DX: L40.9 Psoriasis, unspecified (principal); L30.8 Other specified dermatitis | CPT/HCPCS: 96900 ==

== ENCOUNTER 2023-05-05 07:08 | Outpatient (CLI) | payer MEDICARE, SELFPAY | END 2023-05-05 07:09 | disposition home or self-care (01) | LOC: PUVA 07:08 | PROVIDERS: PCP Nurse Practitioner Family; Visit Provider Dermatology | DX: L40.9 Psoriasis, unspecified (principal); L30.8 Other specified dermatitis | CPT/HCPCS: 96900 ==

== ENCOUNTER 2023-05-06 07:06 | Outpatient (CLI) | payer MEDICARE, SELFPAY | END 2023-05-06 07:07 | disposition home or self-care (01) | LOC: PUVA 07:06 | PROVIDERS: PCP Nurse Practitioner Family; Visit Provider Dermatology | DX: L40.9 Psoriasis, unspecified (principal); L30.8 Other specified dermatitis | CPT/HCPCS: 96900 ==

== ENCOUNTER 2023-10-06 15:47 | Outpatient (CLI) | payer MEDICARE, SELFPAY ==
--- NOTE | 2023-10-06 13:00 | DI.RAD_ITS ---
Exam(s) XR KNEE RT 3V AP,LAT,MANUELA EXAM: XR KNEE RT 3V AP,LAT,MANUELA CLINICAL HISTORY: RIGHT KNEE PAIN. TECHNIQUE: 2D digital imaging was performed of the right knee. Three views obtained. AP, lateral an d PA tunnel views were obtained. COMPARISON: No priors for comparison. FINDINGS: BONES: No acute fracture is present. No bony destructive lesion is seen. JOINTS: There is moderate narrowing of all 3 joint compartments. Osteophytes are also seen in all 3 joint compartments. There is a small joint effusion. SOFT TISSUE: Vascular calcifications are present. IMPRESSION: Moderately severe degenerative changes are seen in the right knee. DATA REPOSITORY: RADIATION DOSE DELIVERED:
== END 2023-10-06 15:48 | disposition home or self-care (01) ==
LOC: DIORS 15:47
PROVIDERS: PCP Nurse Practitioner Family; Referring Provider Nurse Practitioner Family; Visit Provider Student in an Organized Health Care Education/Training Program
DX: M17.11 Unilateral primary osteoarthritis, right knee
CPT/HCPCS: 20610; 73562; 99213; J1010

== ENCOUNTER 2023-12-26 00:27 | Outpatient (CLI) | payer MEDICARE, SELFPAY ==
--- NOTE | 2023-12-26 | DI.MAMMO_ITS ---
Exam(s) MAMMO SCREENING EXAM: MAMMO SCREENING CLINICAL HISTORY: SCREENING MAMMO Z12.31 TECHNIQUE: Bilateral full field digital CC and MLO mammographic images were obtained with 3D tomosyn thesis and utilizing computer aided detection (CAD). COMPARISON: Available for comparison. FINDINGS: Masses/Architectural Distortion: No suspicious nodules. No areas of architectural distortion. Microcalcifications: No suspicious pleomorphic-type are seen. Skin Thickening/Nipple Retraction: None. IMPRESSION: 1. No significant interval change with no specific features of malignancy noted. 2. Unless there is more urgent need, screening mammography is recommended, as per [employer] guidelines. BI-RADS Category 1 - Negative Breast Density - Category B - Scattered areas of fibroglandular density Breast density category C or D implies that the patient has dense breast tissue. Dense breast tissue is very common and is not abnormal but dense breast tissue can make it harder to find cancer on a ma mmogram. Also, dense breast tissue may increase their breast cancer risk. This information about the result of the mammogram report was provided to the patient to raise their awareness. Use this report when you speak with the patient about their risks for breast cancer, which includes their family hist ory. At that time, you may recommend for more screening tests (Ultrasound or MRI) as they might be us eful based on their risk. A negative radiographic report should not delay biopsy if a dominant or clinically suspicious mass is present. Up to ten percent of cancers are not identified on mammography. A negative report may reinforce clinical impression. Adenosis and dense breasts may obscure an underlying neoplasm. False positive reports average 6 to 10%. Patient will receive a letter notifying them of these results.
--- NOTE | 2023-12-26 12:30 | DI.US_ITS ---
APPROVED REPORT EXAM: Comprehensive 2D, Doppler, and color-flow Echocardiogram Patient Location: Out-Patient [facility] Biologist: Teresa Lin RDCS (AE) Indications: Cardiac murmur Other Information Study Quality: Adequate. Technically limited study due to body habitus. Conclusion Mild concentric left ventricular hypertrophy. Ejection fraction is 52%. Wall motion is normal Normal right ventricular size and function Both atria are normal in size Aortic valve is calcified and trileaflet. There is mild aortic stenosis. Peak gradient is 32, mean 20 mmHg. Calculated aortic valve area is 1.2 cm?? Mild mitral annular calcification. Trace to mild mitral regurgitation Mild tricuspid regurgitation. Estimated right ventricular systolic pressure is 28 mmHg Ascending aorta measures 3.63 cm Wall motion Left Ventricle The left ventricle is normal size. The left ventricular systolic function is normal. The left ventric ular ejection fraction is within the normal range. Mild concentric left ventricular hypertrophy. Ther e is normal LV segmental wall motion. There is no ventricular septal defect visualized. LVEF is 52%. Right Ventricle The right ventricle is normal size. The right ventricular systolic function is normal. Atria The left atrium size is normal. The right atrium size is normal. The interatrial septum is intact wit h no evidence for an atrial septal defect. Aortic Valve Aortic valve is calcified. Aortic valve is trileaflet. Mild aortic stenosis. Peak aortic valve gradie nt is 32.37mmHg. Highest mean aortic valve gradient is 19.86mmHg. Calculated COLIN by the continuity eq uation is 1.2cm2. No aortic regurgitation is present. Mitral Valve Mild mitral annular calcification. No evidence of mitral valve stenosis. Trace to mild mitral regurgi tation. Tricuspid Valve The tricuspid valve is normal in structure. There is no tricuspid valve stenosis. Mild tricuspid reg urgitation. The RVSP is 27.9 mmHg. Pulmonic Valve The pulmonary valve is normal in structure. There is no pulmonic valvular stenosis. Trace pulmonic re gurgitation. Great Vessels The aortic root is normal in size. The ascending aorta is mildly dilated. Aortic arch is normal in ca liber. IVC is normal in size and collapses >50% with inspiration. Pericardium There is no pericardial effusion. 2D Dimensions IVSD d PLAX 1.10 cm F: 0.6-1.0 Ao Root d 2.98 cm F: 2.7 - 3.3 LVPW d PLAX 1.10 cm F: 0.6 - 1.0 Ao Asc Diam d 3.63 cm F: 2.3 - 3.1 LVID d PLAX 5.13 cm F: 3.8 - 5.2 LVDs 3.77 cm F: 2.2 - 3.5 LV EF Teichholz 51.6 % FS 26.53 % LV EDV (Teich) 125.5 mL LV ESV (Teich) 60.8 mL M-Mode TAPSE 1.74 cm (M/F) >1.7 Auto EF LV EDV A4C 122.6 mL LV EDV A2C 139.7 mL LV EDV BP 130.4 mL LV ESV A4C 58.0 mL LV ESV A2C 66.4 mL LV ESV BP 62.6 mL LVEF(%) A4C 52.7 % LVEF(%) A2C 52.5 % LVEF(%) BP 52.0 % LV SV A4C 64.6 ml LV SV A2C 73.3 ml LV SV BP 67.9 ml LV CO A4C 4.8 L/min LV CO A2C 5.6 L/min LV CO BP 5.2 L/min HR A4C 75.00 BPM HR A2C 75.80 BPM LV EDV Index (BP) LA Volume LA Length A4C 5.9 cm LA Length A2C 6.3 cm LA Area A4C s 20.83 cm2 LA Area A2C s 25.79 cm2 LA Vol A4C A-L 62.63 mL LA Vol A2C A-L 89.61 mL LA Vol Biplane A-L 77.5 mL LA Vol/BSA A4C A-L LA Vol/BSA A2C A-L LA Vol/BSA BP A-L 33.3 mL/m2 LA Vol A4C MOD 58.2 mL LA Vol A2C MOD 85.0 mL LA Vol BP MOD 72.6 mL RA Volume RA Area A4C 12.8 cm2 RA ESV A4C (A-L) 29.5mL RA Vol/BSA A4C A-L RA Length A4C 4.7 cm RA ESV A4C (MOD) 28.8mL LV Diastology MV E' medial 0.087 (>0.07 m/s) MV E Vmax 1.03 (0.4-1.3 m/s) MV E/E' MED 11.83 (<14) MV A Vmax 1.05 (0.4-1.3 m/s) MV E' lateral 0.071 (>0.1 m/s) E/A Ratio 1.0 MV E/E' LAT 14.49 (<14) MV E' Average 0.079 m/s MV E/E'(average) 13.02 Aortic Valve AoV Vmax 2.84 m/s LVOT Vmax 1.11 m/s AoV Peak Grad 32.4 mmHg LVOT Peak Grad 4.9 mmHg AoV Area (Vmax) 1.21 cm2 LVOT VTI 0.260 m AoV VTI 0.666 m LVOT Mean Grad 3.2 mmHg AoV Mean Lonnie. 2.14 m/s LVOT SV 81.03 mL AoV Mean Grad 19.9 mmHg LVOT Diam s 1.95 cm AoV Area (VTI) 1.22 cm2 AV Regurg Peak Gr. 32.37 mmHg Velocity Ratio 0.39 Mitral Valve MV DT 225 (160-240 msec) MV Vmax TIPS 1.00 m/s MV Mean Grad 2.2 (<2mmHg) MV VTI 0.358 m Pulmonary Valve PV Vmax 1.15 (0.5-1.5 m/s) RVOT Vmax 0.85 m/s PV Peak Grad 5.2 mmHg RVOT Peak Gr. 2.9 mmHg PV Mean Lonnie 0.82 m/s RVOT VTI 0.187 m PV Mean Grad 3.0 mmHg RVOT Mean Gr. 1.7 mmHg Tricuspid Valve RA Pressure 3.00 mmHg TR Vmax 2.50 m/s TV S' 0.11 m/s TR Peak Grad 24.9 mmHg RVSP (TR) 27.9 mmHg
== END 2023-12-26 00:47 ==
LOC: DI 00:28
PROVIDERS: PCP Nurse Practitioner Family; Visit Provider Nurse Practitioner Family
DX: R01.1 Cardiac murmur, unspecified (principal); Z12.31 Encounter for screening mammogram for malignant neoplasm of breast
CPT/HCPCS: 77063; 77067; 93306

== ENCOUNTER → 2024-01-05 13:16 | Outpatient (BNVA) | payer MEDICARE, SELFPAY | PROVIDERS: PCP Nurse Practitioner Family; Referring Provider Nurse Practitioner Family; Visit Provider Student in an Organized Health Care Education/Training Program | DX: M17.11 Unilateral primary osteoarthritis, right knee (principal) | CPT/HCPCS: 99213 ==

== ENCOUNTER 2024-02-04 09:14 | Outpatient (REF) | payer MEDICARE, SELFPAY ==
[2024-02-04 15:03] LABS: Abs Immature Grans 0.02 10^3/uL (0.0-0.06); Absolute Basophil Count 0.04 10^3/uL (0.0-0.2); Absolute Eosinophil Count 0.27 10^3/uL (0.0-0.7); Absolute Lymphocyte Count 1.73 10^3/uL (1.2-3.4); Absolute Monocyte Count 0.57 10^3/uL (0.1-0.8); Absolute Neutrophil Count 3.43 10^3/uL (1.2-6.7); Basophils % 0.7 %; Eosinophils % 4.5 %; HCT 40.1 % (36.0-46.0); HGB 12.6 g/dL (11.2-15.7); Immature Grans % 0.3 %; Lymphocytes % 28.5 %; MCH 28.8 pg (27.0-33.0); MCHC 31.4 % (32.0-36.0); MCV 92 fL (80-95); MPV 11.9 fL (8.0-11.0); Monocytes % 9.4 %; Neutrophils % 56.6 %; Platelet Count 227 10^3/uL (130-400); RBC 4.38 10^6/uL (3.93-5.22); RDW 13.3 % (11.7-14.6); WBC 6.06 10^3/uL (4.4-10.8)
[2024-02-04 15:22] LABS: Iron 52 ug/dL (50-170); Total Iron Binding Capacity 387 ug/dL (250-450); Transferrin Sat 13 % (15-50)
[2024-02-04 15:53] LABS: ALT 22 U/L (14-59); AST 21 U/L (15-37); Alkaline Phosphatase 83 U/L (46-116); BUN 27 mg/dL (7-18); Bilirubin, Total 0.43 mg/dL (0.2-1.0); CREATININE 0.9 mg/dL (0.55-1.02); Calcium 9.5 mg/dL (8.5-10.1); Calculated LDL 87 mg/dL (<100); Chloride 105 mmol/L (98-107); Cholesterol 199 mg/dL (<200); Estimated GFR 67.92 (mL/min/1.73m2); Ferritin 47 ng/mL (8-252); Glucose 174 mg/dL (74-106); HDL Cholesterol 56 mg/dL (40-60); Magnesium 1.7 mg/dL (1.8-2.4); Sodium 141 mmol/L (136-145); TSH (W/Ref FT4) 0.68 uIU/mL (0.36-3.74); Total Protein 7.1 g/dL (6.4-8.2); Triglyceride 281 mg/dL (<150); Vitamin B12 499 pg/mL (193-986); Vitamin D 25 Total 21.6 ng/mL (30-100)
[2024-02-05 08:44] LABS: Transferrin 309 mg/dL (201-352)
== END 2024-02-04 09:15 | disposition home or self-care (01) ==
LOC: NCHCN 09:14
PROVIDERS: PCP Nurse Practitioner Family; Visit Provider Nurse Practitioner Family
DX: I10 Essential (primary) hypertension (principal); D50.9 Iron deficiency anemia, unspecified; M85.89 Other specified disorders of bone density and structure, multiple sites
CPT/HCPCS: 80053; 80061; 82306; 82607; 82728; 83540; 83550; 83735; 84443; 84466; 85025

== ENCOUNTER 2024-02-06 16:29 | Outpatient (REF) | payer MEDICARE, SELFPAY ==
[2024-02-06 15:19] LABS: Bilirubin Negative (Negative); Blood Negative (Negative); Clarity Clear (Clear); Glucose Negative (Negative); Ketones Negative (Negative); Leukocyte Esterase Negative (Negative); Nitrite Negative (Negative); Specific Gravity >= 1.030 (1.005-1.025); Urobilinogen 0.2 mg/dL (Up to 0.2); pH 5.5 (5-8)
[2024-02-06 15:31] LABS: COMMENT (LAB VIEW ONLY) 102.92 mg/dL; Microalb ug/mg Crea 8.5 ug/mg Cr
== END 2024-02-06 16:30 | disposition home or self-care (01) ==
LOC: NCHCN 16:29
PROVIDERS: PCP Nurse Practitioner Family; Visit Provider Nurse Practitioner Family
DX: I10 Essential (primary) hypertension (principal)
CPT/HCPCS: 81003; 82043; 82570

== ENCOUNTER 2024-02-09 08:22 | Outpatient (CLI) | payer MEDICARE, SELFPAY ==
--- NOTE | 2024-02-09 08:15 | RT.EKG_ITS ---
APPROVED REPORT Exam: Resting ECG Reason for Exam: HTN Patient Location: O HR:78 bpm ECG Measurements Heart Rate 78 AXIS KS 181 P 47 QRSd 93 QRS -5 QT 351 T 66 QTc 400 Conclusion Sinus rhythm...normal P axis, V-rate 50- [address] depression, anterolateral leads...ST <-0.04mV, I aVL V2-V6
== END 2024-02-09 08:23 | disposition home or self-care (01) ==
LOC: DI.CARD 08:23
PROVIDERS: PCP Nurse Practitioner Family; Visit Provider Registered Nurse
DX: I10 Essential (primary) hypertension (principal)
CPT/HCPCS: 93010

== ENCOUNTER → 2024-02-09 09:08 | Outpatient (BNVA) | payer MEDICARE, SELFPAY | PROVIDERS: PCP Nurse Practitioner Family; Referring Provider Nurse Practitioner Family; Visit Provider Registered Nurse | DX: R94.31 Abnormal electrocardiogram [ECG] [EKG] (principal) | CPT/HCPCS: 93005; 99214 ==

== ENCOUNTER 2024-03-18 13:58 | Outpatient (REF) | payer MEDICARE, SELFPAY ==
[2024-03-18 15:05] LABS: Abs Immature Grans 0.03 10^3/uL (0.0-0.06); Absolute Basophil Count 0.04 10^3/uL (0.0-0.2); Absolute Eosinophil Count 0.24 10^3/uL (0.0-0.7); Absolute Lymphocyte Count 1.76 10^3/uL (1.2-3.4); Absolute Monocyte Count 0.69 10^3/uL (0.1-0.8); Basophils % 0.6 %; Eosinophils % 3.5 %; HCT 39.8 % (36.0-46.0); HGB 12.5 g/dL (11.2-15.7); Immature Grans % 0.4 %; Lymphocytes % 25.7 %; MCH 28.6 pg (27.0-33.0); MCHC 31.4 % (32.0-36.0); MCV 91 fL (80-95); MPV 12.1 fL (8.0-11.0); Monocytes % 10.1 %; Neutrophils % 59.7 %; Platelet Count 233 10^3/uL (130-400); RBC 4.37 10^6/uL (3.93-5.22); RDW 13.6 % (11.7-14.6); RDW-SD 46.8 fL; WBC 6.86 10^3/uL (4.4-10.8)
[2024-03-18 15:26] LABS: Anion Gap 11.4 mmol/L (3-11); BUN 22 mg/dL (7-18); CO2 27.6 mmol/L (21.0-32.0); CREATININE 0.9 mg/dL (0.55-1.02); Calcium 9.9 mg/dL (8.5-10.1); Chloride 104 mmol/L (98-107); Estimated GFR 67.92 (mL/min/1.73m2); Glucose 175 mg/dL (74-106); Magnesium 1.5 mg/dL (1.8-2.4); Sodium 143 mmol/L (136-145)
[2024-03-18 15:33] LABS: Iron 80 ug/dL (50-170); Total Iron Binding Capacity 367 ug/dL (250-450); Transferrin Sat 22 % (15-50)
== END 2024-03-18 13:59 | disposition home or self-care (01) ==
LOC: NCHCN 13:58
PROVIDERS: PCP Nurse Practitioner Family; Visit Provider Nurse Practitioner Family
DX: D50.9 Iron deficiency anemia, unspecified (principal); I10 Essential (primary) hypertension
CPT/HCPCS: 80048; 83540; 83550; 83735; 85025

== ENCOUNTER 2024-04-07 15:13 | Observation (INO) | payer MEDICARE, SELFPAY ==
--- NOTE | 2024-04-06 18:46 | ANES.PREOP_ITS ---
General Info Date of Service Date Performed: 04/07/24 Height: 5 ft 5 in Weight: 137.438 kg Body Mass Index (BMI): 50.4 Surgical Procedure: Operation Date: 04/07/24 10:10 Proposed Procedure Side Surgeon p Knee Total Arthroplasty Right Keyshawn Coles MD Meds Allergies and Home Medications Allergies Allergy/AdvReac Type Severity Reaction Status Date / Time nickel Allergy Intermediate Contraindic Verified 04/07/24 09:58 ated sweeteners Allergy Mild Skin Rash Uncoded 04/07/24 09:58 Home Medication ?Medication ?Instructions ?Recorded lisinopril 5 mg tablet 5 mg PO DAILY 01/22/13 metformin 1,000 mg tablet 1 tab PO BID 01/22/13 (Glucophage) multivitamin 1 cap PO DAILY 01/22/13 acetaminophen 325 mg tablet 650 mg PO Q4H PRN 11/28/14 (Tylenol) aspirin 81 mg chewable tablet 81 mg PO DAILY 11/28/14 (Aspirin Low-Strength) amoxicillin 500 mg capsule 500 mg PO PRN 10/14/19 ascorbic acid (vitamin C) 500 mg mg PO 10/14/19 capsule cetirizine 10 mg tablet (Zyrtec) 10 mg PO DAILY PRN 10/14/19 glipizide 5 mg tablet 10 mg PO DAILY 10/14/19 simvastatin 20 mg tablet 40 mg PO HS 10/14/19 levothyroxine 200 mcg tablet 175 mcg PO DAILY 02/26/23 B-complex with vitamin C 1 cap PO DAILY 03/19/23 cholecalciferol (vitamin D3) 50 50 mcg PO DAILY 03/19/23 mcg (2,000 unit) capsule magnesium 250 mg tablet 250 mg PO DAILY 03/24/23 gabapentin 300 mg capsule 300 mg PO TID 01/21/24 mupirocin 2 % topical ointment 1 applic topical TID 01/21/24 semaglutide 0.25 mg or 0.5 mg (2 2 mg subcut QWEEK 01/21/24 mg/3 mL) subcutaneous pen injector (Ozempic) apixaban 2.5 mg tablet (Eliquis) mg 04/06/24 apixaban 5 mg tablet (Eliquis) mg 04/06/24 insulin glargine 100 unit/mL (3 5 unit subcut QPM 04/06/24 mL) subcutaneous pen (Lantus Solostar U-100 Insulin) Current Visit Medications: Current Medications Generic Name Dose Route Start Last Admin Trade Name Freq PRN Reason Stop Dose Admin Acetaminophen 1,000 mg 04/07/24 06:00 Acetaminophen 500 Mg Tab PO 04/07/24 23:59 PREOP SHAWN Celecoxib 400 mg 04/07/24 06:00 Celecoxib 200 Mg Cap PO 04/07/24 23:59 PREOP SHAWN Gabapentin 300 mg 04/07/24 06:00 Gabapentin 300 Mg Cap PO 04/07/24 23:59 PREOP SHAWN Ringer's Solution 1,000 mls @ 80 mls/hr 04/07/24 06:00 IV 04/07/24 23:59 INFUSION SHAWN Cefazolin Sodium 3,000 mg/ 100 mls @ 200 mls/hr 04/07/24 06:00 Sodium Chloride IV 04/07/24 23:59 PREOP SHAWN Tranexamic Acid/Sodium Chloride 1,000 mg in 100 mls @ 600 mls/hr 04/07/24 06:00 IVPB 04/07/24 23:59 PREOP SHAWN IV Miscellaneous Supplies 1 each 04/07/24 06:00 Iv Access IV 04/07/24 23:59 DIRECTED SHAWN Sodium Chloride 0 ml 04/07/24 06:00 Normal Saline Flush 10 Ml Syr IV 04/07/24 23:59 PRN PRN Sodium Chloride 0 ml 04/07/24 06:00 Normal Saline 10 Ml Vial IJ 04/07/24 23:59 DIRECTED PRN Sterile Water 0 ml 04/07/24 06:00 Water,Injection,Sterile 10 Ml Vial IJ 04/07/24 23:59 DIRECTED PRN PFSH Active Problems Active Problems: Problem Status Onset Code Degenerative joint disease of right knee Chronic M17.11 Sebaceous cyst Acute L72.3 Senile osteoporosis Acute M81.0 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 Hyperlipidemia Chronic E78.5 Hypothyroidism Chronic E03.9 Goiter Chronic E04.9 Obesity Chronic E66.9 Varicose veins Chronic I86.8 Hypertension Chronic I10 Diabetes mellitus Chronic E11.9 Sleep apnea Chronic G47.30 Status post total knee replacement Acute 12/21/12 Z96.659 Bilateral pulmonary embolism Acute 01/22/13 I26.99 Medical History Medical History Adenomatous colon polyp Heart murmur Seasonal allergies Iron (Fe) deficiency anemia Osteopenia Osteoarthritis Stress incontinence Depression Dyspepsia Hypertension History of pulmonary embolus (PE) 2013 with Left TKA Hypercholesterolemia Hypothyroid Morbid obesity Diabetes mellitus DEWEY (obstructive sleep apnea) Surgical History Surgical History Hx of wisdom tooth extraction History of left knee replacement History of colonoscopy (~01/16/15) Cholecystectomy Tobacco Smoking/Tobacco Use Status: Never Alcohol Alcohol Intake: current Alcohol intake frequency: holidays/special occasions only Alcohol type: beer and wine Substance Use Substance use: Never Substance use type: does not use Vital Signs and Lab Results Vital Signs Most Recent Vital Signs in EMR: Temp Pulse Resp BP Pulse Ox 36.2 C L 82 18 104/59 L 98 04/07/24 09:50 04/07/24 09:50 04/07/24 09:50 04/07/24 09:50 04/07/24 09:50 Lab Results Blood Type / Crossmatch: 2 No Data to Display Complete Blood Count: 2 White Blood Count 6.86 10^3/uL (4.4-10.8) 03/18/24 10:30 Red Blood Count 4.37 10^6/uL (3.93-5.22) 03/18/24 10:30 Hemoglobin 12.5 g/dL (11.2-15.7) 03/18/24 10:30 Hematocrit 39.8 % (36.0-46.0) 03/18/24 10:30 Platelet Count 233 10^3/uL (130-400) 03/18/24 10:30 Complete Metabolic Panel: 2 Sodium 143 mmol/L (136-145) 03/18/24 10:30 Potassium 5.0 mmol/L (3.5-5.1) 03/18/24 10:30 Chloride 104 mmol/L (98-107) 03/18/24 10:30 Carbon Dioxide 27.6 mmol/L (21.0-32.0) 03/18/24 10:30 BUN 22 mg/dL (7-18) H 03/18/24 10:30 Creatinine 0.9 mg/dL (0.55-1.02) 03/18/24 10:30 Est GFR (CKD-EPI 2020) 67.92 (mL/min/1.73m2) 03/18/24 10:30 Magnesium 1.5 mg/dL (1.8-2.4) L 03/18/24 10:30 Calcium 9.9 mg/dL (8.5-10.1) 03/18/24 10:30 Glucose 175 mg/dL (74-106) H 03/18/24 10:30 Liver Function Panel: 2 No Data to Display Coagulation Panel: 2 No Data to Display Cardiac Panel: 2 No Data to Display Arterial Blood Gas: 2 No Data to Display Venous Blood Gas: 2 No Data to Display Pancreas Panel: 2 No Data to Display Thyroid Panel: 2 No Data to Display Infectious Disease: 2 No Data to Display Blood Cultures: 2 No Data to Display Toxicology Panel: 2 No Data to Display Imaging and Studies Imaging and Studies Study information below may be from another EMR and interpreted by another provider. Please see original notes in EMR for more complete details. EKG Summary: EKG PATIENT NAME: Susana Levi UNIT #: [id number] ORDERING PROVIDER: [facility] PROVIDER: PABLO ZHANG APRN DATE/TIME OF SERVICE: 02/09/2455 : 1950 PERFORMING LOCATION: .[facility] APPROVED REPORT Exam: Resting ECG Reason for Exam: HTN Patient Location: O HR:78 bpm ECG Measurements Heart Rate 78 AXIS AZ 181 P 47 QRSd 93 QRS -5 QT 351 T66 QTc 400 Conclusion Sinus rhythm...normal P axis, V-rate 50- [address] depression, anterolateral leads...ST <-0.04mV, I aVL V2-V6 - <Electronically signed by HARMAN CHOE MD in OV> E-Sign Date: 02/10/24 E-Sign Time: 0816 Echocardiogram Summary: Patient Name: Susana Levi Unit #: [id number] Loc: DI Ordering Provider: Pablo Zhang Status: REG CLI Primary Care Provider: Pablo Zhang Date of Exam: 12/26/23 Sex: F Admission Date: 12/26/23 : 1950 Age: 73 APPROVED REPORT EXAM: Comprehensive 2D, Doppler, and color-flow Echocardiogram Patient Location: Out-Patient Airplane Mechanic: Teresa Lin RDCS (AE) Indications: Cardiac murmur Other Information Study Quality: Adequate. Technically limited study due to body habitus. Conclusion Mild concentric left ventricular hypertrophy. Ejection fraction is 52%. Wall motion is normal Normal right ventricular size and function Both atria are normal in size Aortic valve is calcified and trileaflet. There is mild aortic stenosis. Peak gradient is 32, mean 20 mmHg. Calculated aortic valve area is 1.2 cm?? Mild mitral annular calcification. Trace to mild mitral regurgitation Mild tricuspid regurgitation. Estimated right ventricular systolic pressure is 28 mmHg Ascending aorta measures 3.63 cm Wall motion Left Ventricle The left ventricle is normal size. The left ventricular systolic function is normal. The left ventricular ejection fraction is within the normal range. Mild concentric left ventricular hypertrophy. There is normal LV segmental wall motion. There is no ventricular septal defect visualized. LVEF is 52%. Right Ventricle The right ventricle is normal size. The right ventricular systolic function is normal. Atria The left atrium size is normal. The right atrium size is normal. The interatrial septum is intact with no evidence for an atrial septal defect. Aortic Valve Aortic valve is calcified. Aortic valve is trileaflet. Mild aortic stenosis. Peak aortic valve gradient is 32.37mmHg. Highest mean aortic valve gradient is 19.86mmHg. Calculated COLIN by the continuity equation is 1.2cm2. No aortic regurgitation is present. Mitral Valve Mild mitral annular calcification. No evidence of mitral valve stenosis. Trace to mild mitral regurgitation. Tricuspid Valve The tricuspid valve is normal in structure. There is no tricuspid valve stenosis. Mild tricuspid regurgitation. The RVSP is 27.9 mmHg. Pulmonic Valve The pulmonary valve is normal in structure. There is no pulmonic valvular stenosis. Trace pulmonic regurgitation. Great Vessels The aortic root is normal in size. The ascending aorta is mildly dilated. Aortic arch is normal in caliber. IVC is normal in size and collapses >50% with inspiration. Pericardium There is no pericardial effusion. 2D Dimensions IVSD d PLAX 1.10 cm F: 0.6-1.0Ao Root d 2.98 cm F: 2.7 - 3.3 LVPW d PLAX 1.10 cm F: 0.6 - 1.0Ao Asc Diam d 3.63 cm F: 2.3 - 3.1 LVID d PLAX 5.13 cm F: 3.8 - 5.2 LVDs 3.77 cm F: 2.2 - 3.5 LV EF Teichholz 51.6 % FS26.53 % LV EDV (Teich)125.5 mL LV ESV (Teich)60.8 mL M-Mode TAPSE 1.74 cm (M/F) >1.7 Auto EF LV EDV G4D211.6 mLLV EDV K7U942.7 mLLV EDV BP130.4 mL LV ESV A4C58.0 mLLV ESV A2C66.4 mLLV ESV BP62.6 mL LVEF(%) A4C52.7 %LVEF(%) A2C52.5 %LVEF(%) BP52.0 % LV SV A4C64.6 mlLV SV A2C73.3 mlLV SV BP67.9 ml LV CO A4C4.8 L/minLV CO A2C5.6 L/minLV CO BP5.2 L/min HR A4C75.00 BPMHR A2C75.80 BPMLV EDV Index (BP) LA Volume LA Length A4C5.9 cmLA Length A2C6.3 cm LA Area A4C s 20.83 cm2LA Area A2C s 25.79 cm2 LA Vol A4C A-L62.63 mLLA Vol A2C A-L89.61 mLLA Vol Biplane A-L77.5 mL LA Vol/BSA A4C A-LLA Vol/BSA A2C A-LLA Vol/BSA BP A-L 33.3 mL/m2 LA Vol A4C MOD58.2 mLLA Vol A2C MOD85.0 mLLA Vol BP MOD72.6 mL RA Volume RA Area A4C12.8 cm2RA ESV A4C (A-L)29.5mLRA Vol/BSA A4C A-L RA Length A4C4.7 cmRA ESV A4C (MOD)28.8mL LV Diastology MV E' medial0.087 (>0.07 m/s)MV E Vmax 1.03 (0.4-1.3 m/s) MV E/E' MED11.83 (<14)MV A Vmax 1.05 (0.4-1.3 m/s) MV E' lateral0.071 (>0.1 m/s)E/A Ratio 1.0 MV E/E' LAT14.49 (<14) MV E' Average0.079 m/s MV E/E'(average)13.02 Aortic Valve AoV Vmax2.84 m/sLVOT Vmax 1.11 m/s AoV Peak Grad32.4 mmHgLVOT Peak Grad 4.9 mmHg AoV Area (Vmax)1.21 zf1OGYS VTI0.260 m AoV VTI0.666 mLVOT Mean Grad 3.2 mmHg AoV Mean Lonnie.2.14 m/sLVOT SV 81.03 mL AoV Mean Grad19.9 mmHgLVOT Diam s 1.95 cm AoV Area (VTI)1.22 cm2AV Regurg Peak Gr.32.37 mmHg Velocity Ratio 0.39 Mitral Valve MV DT 225 (160-240 msec) MV Vmax TIPS 1.00 m/s MV Mean Grad 2.2 (<2mmHg) MV VTI 0.358 m Pulmonary Valve PV Vmax 1.15 (0.5-1.5 m/s)RVOT Vmax 0.85 m/s PV Peak Grad 5.2 mmHgRVOT Peak Gr.2.9 mmHg PV Mean Vel0.82 m/sRVOT VTI0.187 m PV Mean Grad 3.0 mmHgRVOT Mean Gr.1.7 mmHg Tricuspid Valve RA Pressure 3.00 mmHgTR Vmax 2.50 m/s TV S'0.11 m/sTR Peak Grad 24.9 mmHg RVSP (TR) 27.9 mmHg Ordered By: Pablo Zhang CC: Dictated By: Harman Choe M.D. 12/26/23 1355 <Electronically signed by Harman Choe M.D. in OV> 12/26/23 1444 Transcribed By: Harman Choe MD 12/26/23 1356 This is privileged, confidential information intended only for the provider named. Any use or distribution by any person other than this provider is strictly prohibited. If you receive this report in error, please notify us immediately at [phone] and return the original report to us at the address above. Thank-you. Anesthesia Assessment and Plan Anesthesia History Personal History: PONV Family History: Other Exercise Tolerance Exercise Tolerance: Metabolic Equivalents<4 Pertinent Negatives Pertinent Negatives: No History of CVA/TIA Cardiac & Pulmonary Exam Cardiac Exam: Normal S1/S2 Heart Sounds Pulmonary Exam: Clear Bilateral Breath Sounds and Active Dry Cough Implantable Cardiac Device Does patient have a Pacemaker or an ICD?: No Airway Exam Known Difficult Airway: No Mallampati Class: 3 Mouth Opening: Narrow (< 3cm) Thyromental Distance: Greater than 3 cm Neck Range of Motion: Limited ROM Neck Circumference: Thick Teeth Condition: Normal Dentition and Generalized Poor Dentition Tooth Numberin 1. Missing ASA Classification ASA Score: ASA 4 Emergency Case?: No NPO Status NPO Status: NPO Clears >2 hours, Solids >8 hours Anesthesia Plan Resuscitation Status: Full Code Anesthesia Technique: Spinal Anesthesia Airway Planned: Natural Airway Pain Management: Surgeon and patient request nerve block Monitors Used: Standard Monitors Preoperative Comments:: 73 yo female for TKA. Sig PMHx: , HTN, DEWEY, PE/DVT, DM2, BMI 50 (ozempic), hypothyroid, depression,, EKG: sinus. ECHO: LVEF 52%, mild 1.2 cm area, mild MR, mild TR. Previous Anes: - colo, prop, natural airway, no issues.
[2024-04-07] VITALS (38 sets, daily range): BP systolic 104–183; BP diastolic 33–122; PULSE 72–95; RESP 10–29; TEMP 36.2–37.4; O2SAT 93–98; BMI 50.4
[2024-04-07] MEDS: Celecoxib 200 MG CAP 400 MG PO (10:13)
[2024-04-07] MEDS: Gabapentin 300 MG CAP PO ×2 (10:13→20:57)
[2024-04-07] MEDS: Acetaminophen 500 MG TAB 1000 MG PO ×2 (10:13→20:58)
[2024-04-07] MEDS: Lactated Ringers 1,000 ML 80 ML IV ×2 (10:25→16:04)
[2024-04-07] MEDS: ceFAZolin 3,000 MG in Normal Saline 100 ML 200 MG IV (11:26)
[2024-04-07] MEDS: TRANEXAMIC ACID/SOD. CHL. 1,000 MG/100 ML BAG 600 MG IVPB (11:40)
--- NOTE | 2024-04-07 11:41 | W.ANESNERVE ---
Nerve Block Single Injection Procedure Date and Time Date Performed: 04/07/24 Procedure Start: 11:08 Location Where Procedure Performed Procedure Location: Day Surgery Unit Reason Performed: Postoperative Analgesia Requesting Provider: Keyshawn Coles Timeout Performed Timeout Performed: Yes Monitoring Used ECG, Blood Pressure, SpO2 and ETCO2 Sterility Sterility: Hand Hygiene, Surgical Cap, Surgical Mask, Sterile Gloves and Chlorhexidine Sedation Given During Procedure Sedation Given (Indicate Dose Given): Versed IV Dose:: 2 mg Patient Mental Status Patient Mental Status: Sedate with meaningful communication Nerve Block 1st Nerve Block: Laterality: Right Block Type: Adductor Canal Ultrasound Image Saved?: Yes Needle / Catheter Used: 100mm SonoPlex II Local Anesthetic Bolus (Indicate Dose Given): Lidocaine used for local infiltration of skin, Injected in 3-5ml increments after negative blood aspiration and Bupivacaine 0.25% Dose:: 15 ml Additives (Indicate Dose Given): Normal Saline Ultrasound: Sterile probe cover and gel used Nerve Stimulator: Supplement to Ultrasound use and No twitch or parasthesia noted < 0.5 mA Paresthesia: None Procedure Tolerated: No Complications and Patient tolerated well Procedure Outcome: Successful Performed By: Hua Rosa
[2024-04-07] MEDS: fentaNYL 100 MCG/2 ML VIAL IVP ×2 (13:46→13:51)
[2024-04-07] MEDS: HYDROmorphone 2 MG/ML SYR IVP (14:14)
[2024-04-07] MEDS: Normal Saline 10 ML VIAL IJ (14:14)
--- NOTE | 2024-04-07 14:16 | W.ANESPOSTOP ---
Postoperative Evaluation Date, Time and Location Date Performed: 04/07/24 Time Performed: 14:17 Patient Location: PACU Vital Signs Most Recent Imported Vital Signs: Most Recent Vital Signs Temp Pulse Resp BP Pulse Ox 36.7 C 76 16 149/51 H 96 04/07/24 14:00 04/07/24 10:59 04/07/24 10:59 04/07/24 10:59 04/07/24 10:59 Pain Score Most Recent Pain Score: Most Recent Pain Score Pain Level 8 04/07/24 14:00 Assessment Mental Status: Awake (Alert & Oriented to Patient Baseline) Airway and Respiratory Function: Patent airway with normal (patient baseline) respiratory exam Cardiovascular Function: Hemodynamically Stable Hydration Status: Adequately Hydrated Nausea & Vomiting: No Nausea or Vomiting Pain: Pain is Moderate or Severe Postoperative Pain Management: Pain being addressed with medication (pain level 5/10) Peripheral Nerve Block: Regional nerve block not resolved at time of post operative discharge
--- NOTE | 2024-04-07 15:47 | ROE_ITS ---
Operative Note Operative Note PRE-OP DIAGNOSIS: Right Knee Osteoarthritis POST-OP DIAGNOSIS: same PROCEDURE: Right Total Knee Replacement SURGEON: Keyshawn Coles ENDLESS BELT FINISHER: Promise Villarreal ANESTHESIA TYPE: Spinal Refer to Anesthesia Record ESTIMATED BLOOD LOSS: 100 PATHOLOGY: none sent TOURNIQUET TIME: 0 COMPLICATIONS: None Patient was transported to: PACU Patient's condition: stable Implants: 1. Depuy Attune Cementless Cruciate Retaining Femoral Component, Size 6 2. Depuy Attune Cementless Fixed Bearing Tibial Component, Size 5 3. Depuy Attune 6x7mm CR/FB Poly 4. Depuy Attune Patellar Component, Size 32 Indications: I have seen Susana in clinic for symptoms of knee arthritis, confirmed with radiographic findings. She has exhausted nonoperative methods and was having significant limitations in daily function and desired better function and less pain. I discussed the technical details of a knee replacement. I explained the risks of the procedure to include, but not limited to, bleeding, infection, pain, stiffness, fracture, damage to nerves and vessels, damage to muscles and tendons, loosening, need for repeat procedure, blood clot and cardiopulmonary demise. Despite these risks, Susana elected to proceed. Findings: There was significant signs of arthritis throughout the knee. Procedure Description: Susana was greeted in the preoperative holding area where the correct side was identified and marked. The consent was reviewed with the patient and signed. The history and physical was updated. All questions were answered. Preoperative medications were administered: Acetaminophen 1000mg, Celebrex 400mg, and Gabapentin 300mg. An adductor canal block was then administered by the anesthesia team in the DSU. Susana was taken back to the operating room. A spinal anesthestic was then ad ministered. The patient was placed into the supine position on the operating room table. Posts were placed for positioning during the procedure. All bony prominences were well padded. Prophylactic antibiotics in the form of Cefazolin were administered. 1g of Tranxemic Acid was given intravenously within 30 minutes of incision. The right leg was then prepped with Chloraprep and draped in a standard fashion with impervious stockinette. A second prep with Chloraprep was performed prior to application of Iodine impregnated skin protection. A timeout to confirm correct identity, side and site, procedure, allergies, anesthesia, and medical concerns was performed. With the knee in some flexion, a midline incision was made overlying the knee. Full thickness skin flaps were raised once the extensor mechanism was encountered. These were raised medially and laterally. Any bleeding was controlled with electrocautery. Once the extensor mechanism was fully exposed, a medial parapatellar arthrotomy was performed in a flexed position. All bleeding from the arthrotomy and the geniculate arteries was coagulated. A medial subperiosteal peel was performed with electrocautery to the midcoronal plane. Due to the significant varus deformity the entire medial tibial plateau was exposed. The fat pad was removed while keeping the patellar tendon protected. The anterior distal femur synovium was removed for later visualization. The ACL and PCL were resected and the anterior horn of the lateral meniscus was transected. The knee was then flexed with the patella everted. Large osteophytes from the tibia were removed. Large osteophytes from the femur were removed. Using a step drill, and based on preoperative templating, the femoral canal was entered. This was done with a step drill without any difficulty. The intramedullary distal femoral cut guide was inserted, set to a 5 degree valgus cut and 9mm cut thickness. The distal femoral cut guide was then held in position and pinned. With the soft tissues protected, the distal cut was performed. This was passed over a few times to ensure a planar cut. I then turned attention to the tibia. The extramedullary guide was placed onto the leg. The distal aspect was slid medial to adjust for position of center of ankle and stay in line with shaft of the tibia. Approximately 3-5 degrees of posterior slope was kept in the proximal cutting guide. The center of the guide was aligned with the PCL. The stylus was used to assess cut thickness. The medial side, most involved side, was set for a 4mm cut. This was then held in position and pinned into place with 2 additional pins and a cross pin for stability. The medial and lateral collateral ligaments were protected and the cut was performed. With this comp leted, it was assessed and noted to be of appropriate dimensions. The guide was removed. A spacer block was inserted and the knee was brought into extension. The 6mm spacer block provided full extension, without hyperextension and with stability of both the medial and lateral collateral ligaments was assessed. The pins from the femur and the tibia were then removed. The distal femur was then sized. The anterior stylus was placed onto the lateral ridge of the anterior femur. This indicated a size d femur. The external rotation of the guide was adjusted to 3 degrees to match the epicondy lar axis, perpendicular to [place]?s line. The 4-in-1 cutting guide was the placed. The posterior medial femur cut was evaluated and appeared of good thickness. The spacer block was inserted underneath the cutting guide and stability was confirmed in 90 degrees of flexion. An lore wing was used to confirm appropriate position of the anterior cut to avoid notching. This cutting guide was ensured to be flush on the cut surface and then pinned into place with headed pins. While protecting the soft tissues, quad tendon, and collateral ligaments, the anterior and posterior cuts were performed with a saw. The central two pins were removed and the posterior and anterior chamfers were cut next. The notch-cutting guide was placed. This was pinned to lateralize the femoral component as much as possible while keeping it flush on the cut surface. This was then pinned into position. A reciprocating saw was used to make the notch cut. A rasp smoothed the cut surfaces. The medial and lateral menisci were removed. A trial femoral component was then inserted, impacted down to the cut surfaces, and the lug holes were drilled. A provisional trial tibial component was placed and the knee was brought through range of motion. The polyethylene was trialed until there was good flexion and extension with excellent stability to the medial and lateral collaterals. The patella was tracking without thumbs. A size 7mm polyethylene component provided the best range of motion and stability with less than 2mm gapping with medial and lateral stress and full extension without significant hyperextension. The tibial cut surface was fully exposed. The tibia was then sized as a 5. The tibia had been previously marked during trialing to correspond to the center of the tibial component to help with rotation. The trial was aligned to this zachary, approximately rotated to the medial 1/3rd of the tibial tubercle. The trial was pinned into place. The tibia was prepared with a reamer and a keel punch and lug holes. The knee was then brought into extension and the patella was measured as 24mm. Using the patellar clamp and cut guide, this was resected to a flat surface with at least 13mm of thickness remaining. The size 32 patella fit the best. This was oriented and then clamped into position. The lugs were drilled. The trial components were removed. The final components were opened on the back table. The periosteal and capsular tissues, especially posteriorly, around the knee were then systematically injected with a periarticular cocktail consisting of 246mg of Ropivacaine, 0.5mg of Epinephrine, 0.08mg of Clonidine, and 30mg of Ketorolac, diluted to 100cc. On the back table, with the implants opened, the cement was mixed. One batch of high viscosity cement was prepared with vacuum assistance. After the cement was ready a small amount was placed on the cut surface of the patella and the patellar button was clamped into position and held. While the cement was hardening, the cementless knee components were placed. Starting with the tibial component, the tibia was subluxed anteriorly and the lug holes of the component were lined up. The tibia was then impacted with an impactor and mallet until the tibial component was in contact with the tibia. The final polyethylene component was inserted. Then, the femoral component was inserted. The lug holes were aligned and the component was impacted into position. The knee was irrigated with Surgiphor Betadine solution. This was allowed to sit in the knee for 3 minutes and then it was irrigated out with saline. After the cement had finally cured, approximately 15min, the clamp was removed from the patella and the knee was taken through range of motion. The patella was tracking with a no-thumbs technique. The capsule was then reapproximated with a No. 1 Vicryl at multiple locations. The capsule was finally closed with a No. 2 Stratafix, barbed suture. The second dosing of 1g TXA was started. Deep tissues were then reapproximated with 0 Vicryl and 2-0 Vicryl. The skin was closed with a running 3-0 Monocryl in a subcuticular fashion. This was reinforced with skin glue. A Mepilex silver dressing was applied along with a [id number] SAIRA wrap. A CryoCuff was applied. Susana was transferred to the hospital bed without difficulty an suffering no apparent complication. Susana has a good prognosis. Physical therapy will start today and without restrictions, weight-bearing as tolerated. Her home ose of Apixaban will be used for DVT prophylaxis. Date of Procedure: 04/07/24
--- NOTE | 2024-04-07 15:56 | IN_ITS ---
PT Notes Visit Reasons: Right knee DJD Physical Therapy Inpatient Initial Evaluation Date: 04/07/2024 Referring Doctor: VALENCIA Peraza PT Orders: PT CONSULT: S/p Ortho Surgery Precautions: Fall. Standard. Activity as tolerated. Patient Profile/Admitting Diagnosis: Bibiana is a 73-year-old female with degenerative joint disease of the right knee and is status post right total knee arthroplasty on postoperative day 0. PMHX: All Active Problems (Updated 10/06/23 @ 16:50 by Promise Villarreal) Degenerative joint disease of right knee (Chronic) Depo medrol injection: 10/06/23Sebaceous cyst (Acute) Senile osteoporosis (Acute) Psoriasiform eczema (Acute) Hyperlipidemia (Chronic) Hypothyroidism (Chronic) Goiter (Chronic) Obesity (Chronic) Varicose veins (Chronic) Hypertension (Chronic) Diabetes mellitus (Chronic) Sleep apnea (Chronic) Status post total knee replacement (Acute 12/21/12) Bilateral pulmonary embolism (Acute 01/22/13) Medical History Adenomatous colon polyp Heart murmur Seasonal allergies Iron (Fe) deficiency anemia Osteopenia Osteoarthritis Stress incontinence Depression Dyspepsia Hypertension History of pulmonary embolus (PE) Hypercholesterolemia Hypothyroid Morbid obesity Diabetes mellitus DEWEY (obstructive sleep apnea) Surgical History Hx of wisdom tooth extraction History of left knee replacement History of colonoscopy (~01/16/15) Cholecystectomy Social History/Home Situation: Son lives on the seocnd floor of the house she owns. Modified independent with use of single point cane indoors and outdoors prir to surgery although had had a difficult time mobilizing close to her surgery schedule needeing use of walker. Equipment Owned/DME: 4WW, standard walker Subjective: Mildly lightheaded when she sat up at edge of bed for the first time but felt better after about 5 minutes of sitting. Pain incrased to as high as 6/10 but went back down to 4/10 with rest onto chair. Objective: General Observation: Resting in bed. SAIRA wraps to R LE. Cryocuff to R knee. Mental Status: Alert and oriented as to person, place, time, and purpose. Able to pay attention, focus, and respond appropriately. Pain: As above Vital Signs: WNL as closely monitored by nursing staff ROM: Right Lower Extremity: Hip flexion WFL. Hip abduction WFL. Knee flexion 0-90 degrees. Ankle dorsiflexion WFL. Ankle plantarflexion WFL. Left Lower Extremity: Hip flexion WFL. Hip abduction WFL. Knee flexion WFL. Ankle dorsiflexion WFL. Ankle plantarflexion WFL. Strength: Right Lower Extremity: Hip flexors 4-/5. Hip abductors 4-/5. Knee flexors 3-/5. Knee extensors 4-/5. Ankle dorsiflexors 4/5. Ankle plantarflexors 4/5. Left Lower Extremity: Hip flexors 4/5. Hip abductors 4/5. Knee flexors 4/5. Knee extensors 4/5. Ankle dorsiflexors 4/5. Ankle plantarflexors 4/5. Bed Mobility/Transfers: Minimal cueing provided for use of B hands as needed for support, movement sequence, AD management, and posture to reduce fall risk and minimize pain report Supine to sit stand by assist with HOB at 30 degrees Sit to stand minimal assist with FWW Stand to sit with minimal assist with FWW Bed to wheelchair minimal assist with FWW Wheelchair to reclining chair minimal assist with FWW Gait: Facilitated safe and correct performance of level surface ambulation covering a distance of 30 feet +15 feet using front-wheeled walker with step-to gait pattern requiring minimal assist and wheelchair follow for safety with report of patient up to 6/10 in the anterior knee and thigh that subsided down to 4/10 with rest. Minimal verbal cueing provided for AD management, limb movement sequence, weight distribution, and posture to minimize pain reported decrease fall risk. Balance: Static Sitting: Normal Dynamic Sitting: Normal Static Standing: Fair Dynamic Standing: Fair Special Tests: Mobility Limitations Standardized Measure [facility] AM-PAC 6 clicks Basic Mobility Inpatient Short Form: Raw Score: 19 CMS Score: 42% deficit Informed Consent/Education: Patient was instructed in purpose of PT consult and plan of care. Agreeable to proceed with established PT POC to achieve personal goals. Trained patient with correct performance of exercises below to maximize motor control, joint flexibility, soft tissue extensibility of the R knee musculature: Access Code: [email or web address] URL: [email or web address] Date: 04/07/2024 Prepared by: Audrey Patel Exercises - Supine Quad Set - 1 x daily - 7 x weekly - 1 sets - 10 reps - 5 hold - Supine Heel Slide - 1 x daily - 7 x weekly - 1 sets - 10 reps - 5 hold - Supine Ankle Pumps - 1 x daily - 7 x weekly - 1 sets - 10 reps - 5 hold - Small Range Straight Leg Raise - 1 x daily - 7 x weekly - 1 sets - 10 reps - 5 hold ABLE TO RAISE WHOLE LEG ABOUT 2-3 INCHES OFF THE BED - Seated April - 1 x daily - 7 x weekly - 1 sets - 10 reps - 5 hold Assessment: Patient requires minimal assist of 1 during short distance ambulation using FWW with wheelchair follow with pain report of up to 6/10 that subsided back to 3- 4/10 with rest. Patient presents with clinical signs and symptoms consistent with current/admit ting diagnoses that have resulted to mobility limitations, gait instability, generalized weakness, and overall ADL decline as demonstrated by the following impairment level findings: 1. Decreased strength to R knee major muscle groups 2. Impaired sitting/standing balance 3. Impaired activity tolerance 4. Limitation of joint range of motion in R knee 5. Pain in R knee as above Impairments are contributing to the following functional limitations: 1. Decline in bed mobility skills 2. Decline in transfer skills 3. Difficulty with ambulation without assistive device and physical assistance 4. Increased completion time for mobility ADL performance 5. Increased risk for falls 6. Difficulty with managing steps alone safely Patient is assessed as a 68821 moderate complexity based on the following: History: 73-year-old female with past medical history as indicated above Examination: Demonstrable impairment in strength, balance, and mobility level with underlying impairments and functional limitations as exhibited above as well as deficit score of 42% utilizing the [facility] Mobility Inpatient Short Form Presentation: Evolving Decision Makin moderate complexity Goals: Goals X1 week 1. Supine-Sit independent 2. Sit-Supine independent 3. Sit-Stand independent 4. Stand-Sit independent with FWW 5. Bed-Chair independent with FWW 6. Chair-Bed independent with FWW 7. Independent gait on level surface with use of FWW for at least 300 feet without report of pain nor dyspnea 8. Independent stair negotiation while holding onto B rails for at least 3 steps without report of pain nor dyspnea 9. Independent with home exercise program 10. Good static and dynamic standing balance/tolerance Plan of Care/Treatment Plan: 1-2x/day, 7 days/week x 1 week. Plan of care has been reviewed with the AMMUNITION ASSEMBLY I LABORER providing the service under Physical Therapy direction. Initiate Physical Therapy intervention for pain management as needed, strengthening, bed mobility, transfers, gait, stairs, balance training, and use of assistive device. DISCHARGE RECOMMENDATIONS: 4 Home with no services [] [] Home with services [specify] [X] Home with outpatient PT after 2 weeks for continued R knee rehab [] SNF for continued rehabilitation [] [] Senior Integration Architect Care [] [] SNF versus LTC based on ability to participate and progress [] TREATMENT CODE/TIME: 30517 x 25 minutes for 1 unit, 64669 x 31 minutes for 2 units (15:56-16:42). Thank you for the opportunity to participate in the care of this patient. Audrey Patel PT, DPT, CLT [facility] [place], [place]
[2024-04-07] MEDS: Normal Saline Flush 10 ML SYR IV ×2 (16:07→21:02)
[2024-04-07] MEDS: Insulin Aspart 300 UNITS/3 ML PEN SC (17:21)
[2024-04-07] MEDS: metFORMIN C.R. 500 MG TABCR 2000 MG PO (17:30)
[2024-04-07] MEDS: ceFAZolin 1 GM/50 ML BAG IVPB (20:56)
[2024-04-07] MEDS: Apixaban 2.5 MG TAB PO (20:57)
[2024-04-07] MEDS: Insulin Glargine 300 UNITS/3 ML PEN SC (20:57)
[2024-04-07] MEDS: Simvastatin 20 MG TAB 40 MG PO (20:57)
[2024-04-07] MEDS: Celecoxib 200 MG CAP PO (21:01)
[2024-04-08 03:00] VITALS: BP 136/73; PULSE 82; RESP 20; TEMP 36.8; O2SAT 94
[2024-04-08] MEDS: ceFAZolin 1 GM/50 ML BAG IVPB ×2 (04:35→11:36)
[2024-04-08] MEDS: Levothyroxine 175 MCG TAB PO (06:03)
[2024-04-08 08:03] VITALS: BP 141/74; PULSE 76; RESP 18; TEMP 36.6; O2SAT 96
[2024-04-08] MEDS: Cholecalciferol (Vitamin D3) 1,000 UNIT TAB 2000 UNITS PO (08:07)
[2024-04-08] MEDS: Acetaminophen 500 MG TAB 1000 MG PO (08:07)
[2024-04-08] MEDS: Aspirin 81 MG CHEW PO (08:08)
[2024-04-08] MEDS: Celecoxib 200 MG CAP PO (08:08)
[2024-04-08] MEDS: Apixaban 2.5 MG TAB PO (08:09)
[2024-04-08] MEDS: Lisinopril 5 MG TAB PO (08:09)
[2024-04-08] MEDS: Pantoprazole 40 MG TABCR PO (08:09)
[2024-04-08] MEDS: Gabapentin 300 MG CAP PO (08:09)
[2024-04-08] MEDS: Magnesium Gluconate 500 MG TAB 250 MG PO (08:10)
[2024-04-08] MEDS: Insulin Aspart 300 UNITS/3 ML PEN SC ×2 (08:11→12:05)
--- NOTE | 2024-04-08 08:37 | PT.INTREAT ---
PT Notes Visit Reasons: Right knee DJD Physical Therapy Inpatient Treatment Note Date: 04/08/2024 Subjective: Savage much better today with pain level just 4/10. Per Nurse Roxi, patient has been given her pain medication about 20 minutes ago prior to PT arrival. Denied headache, chest pain, and lightheadedness throughout session. Objective: General Observation: Resting on bedside recliner. SAIRA wraps removed by Dr. Coles early this morning Mental Status: Alert and oriented as to person, place, time, and purpose. Able to pay attention, focus, and respond appropriately. Pain: As above Vital Signs: WNL as closely monitored by nursing staff ROM: Right Lower Extremity: Hip flexion WFL. Hip abduction WFL. Knee flexion 20-90 degrees. Knee extension -20 degrees. Ankle dorsiflexion WFL. Ankle plantarflexion WFL. Left Lower Extremity: Hip flexion WFL. Hip abduction WFL. Knee flexion WFL. Ankle dorsiflexion WFL. Ankle plantarflexion WFL. Strength: Right Lower Extremity: Hip flexors 4-/5. Hip abductors 4-/5. Knee flexors 3-/5. Knee extensors 3-/5. Ankle dorsiflexors 4/5. Ankle plantarflexors 4/5. Left Lower Extremity: Hip flexors 4/5. Hip abductors 4/5. Knee flexors 4/5. Knee extensors 4/5. Ankle dorsiflexors 4/5. Ankle plantarflexors 4/5. Bed Mobility/Transfers: Minimal cueing provided for use of B hands as needed for support, movement sequence, AD management, and posture to reduce fall risk and minimize pain report Supine to sit stand by assist with HOB at 30 degrees Sit to stand stand by assist with FWW Stand to sit with stand by assist with FWW Bed to wheelchair stand by assist with FWW Gait: Facilitated safe and correct performance of level surface ambulation covering a distance of 200 feet + 200 feet using front-wheeled walker with step-to gait pattern initially and improving to step through gait pattern with improving pain control, required minimal assist and wheelchair follow for safety with report of pain up to 4/10 in the anterior knee and thigh that subsided down to 2-3/10 with rest. Minimal verbal cueing provided for AD management, limb movement sequence, weight distribution, and posture to minimize pain reported decrease fall risk. Stairs: GUided patient with safe and correct negotiation of 6 x 4-inch steps and 4 x 6-inch steps while holding onto B rails for support with stand by assist and minimal verbal cueing provided for hand placement, limb movement sequence, weight distribution, and posture to minimize pain reported decrease fall risk. Balance: Static Sitting: Normal Dynamic Sitting: Normal Static Standing: Fair Dynamic Standing: Fair THERA EX: Patient was instructed in purpose of PT consult and plan of care. Agreeable to proceed with established PT POC to achieve personal goals. Trained patient with correct performance of exercises below to maximize motor control, joint flexibility, soft tissue extensibility of the R knee musculature: Access Code: [email or web address] URL: [email or web address] Date: 04/07/2024 Prepared by: Audrey Patel Exercises - Supine Quad Set - 1 x daily - 7 x weekly - 1 sets - 10 reps - 5 hold - Supine Heel Slide - 1 x daily - 7 x weekly - 1 sets - 10 reps - 5 hold - Supine Ankle Pumps - 1 x daily - 7 x weekly - 1 sets - 10 reps - 5 hold - Small Range Straight Leg Raise - 1 x daily - 7 x weekly - 1 sets - 10 reps - 5 hold ABLE TO RAISE WHOLE LEG ABOUT 5-6 INCHES OFF THE BED - Seated April - 1 x daily - 7 x weekly - 1 sets - 10 reps - 5 hold Assessment: Patient requires stand by assist of 1 during short distance ambulation using FWW with wheelchair follow with less pain report. Mch able to demonstrate symmetrical limb movement with improved pain control showing increased ability to flex R knee from push off to pre heel strike on R. Plan of Care/Treatment Plan: 1-2x/day, 7 days/week x 1 week. Plan of care has been reviewed with the NUCLEAR REACTOR OPERATOR providing the service under Physical Therapy direction. Initiate Physical Therapy intervention for pain management as needed, strengthening, bed mobility, transfers, gait, stairs, balance training, and use of assistive device. DISCHARGE RECOMMENDATIONS: [] Home with no services [] [] Home with services [specify] [X] Home with outpatient PT after 2 weeks for continued R knee rehab [] SNF for continued rehabilitation [] [] Passenger Service Manager Care [] [] SNF versus LTC based on ability to participate and progress [] TREATMENT CODE/TIME: 14240 x 20 minutes for 1 unit, 69742 x 48 minutes for 2 units (08:37-09:45).
--- NOTE | 2024-04-08 09:45 | PDOC.CMIN ---
Date of service: 04/08/24 Time of Service: 09:45 Care Management Initial Assmt Advance Directives Advance Directives: Do you have an Advance Directive: N 03/09/24 11:30 AD On File at [facility]: N 03/09/24 11:30 Date Asked 02/06/24 03/09/24 11:30 AD Date Reviewed 04/07/24 04/07/24 11:23 COLST On File at [facility] COLST Date Scanned Code Status Resuscitation Status Full Code Care Team Visit Care Team Role Provider Type Rosamaria Maldonado Primary Care Provider ADV PRACTICE REGISTERED NURSE InPatient Jacob Brownbacilio Other Providers OTHER Keyshawn Coles MD Admit Provider [facility] STAFF PHYSICIAN Attending Provider Social Determinants of Health Screening Social Determinants of Health last assessed: 04/08/24 Will the Patient Participate in the Screening?: Yes Do you worry about having a steady place to live?: no Problems where you live: no known problems In the past 12 months, have you had to go without electric, gas, oil or water in your home?: no Have you or anyone in your house had to go without enough food to eat?: no Has lack of transportation kept you from medical appointments or from doing things needed for daily living?: no Has anyone in your life made you feel unsafe or unsupported?: no How hard is it for you to pay for the very basics like food, housing, medical care, and heating? Would you say it is:: Not hard at all Do you want help finding or keeping work or a job?: I do not need or want help If for any reason you need help with day-to-day activities such as bathing, preparing meals, shopping, managing finances, etc., do you get the help you need?: I get all the help I need How often do you feel lonely or isolated from those around you?: Rarely Do you speak a language other than Vincentian at home?: No Does the patient want assistance with any of the above?: No Health Related Social Needs Health related social needs: feeling lonely/isolated (Z60.8) [facility] All Active Problems Degenerative joint disease of right knee (Chronic) Depo medrol injection: 10/06/23 Sebaceous cyst (Acute) Senile osteoporosis (Acute) Psoriasiform eczema (Acute) Hyperlipidemia (Chronic) Hypothyroidism (Chronic) Goiter (Chronic) Obesity (Chronic) Varicose veins (Chronic) Hypertension (Chronic) Diabetes mellitus (Chronic) Sleep apnea (Chronic) Status post total knee replacement (Acute 12/21/12) Bilateral pulmonary embolism (Acute 01/22/13) Medical History Adenomatous colon polyp Heart murmur Seasonal allergies Iron (Fe) deficiency anemia Osteopenia Osteoarthritis Stress incontinence Depression Dyspepsia Hypertension History of pulmonary embolus (PE) 2013 with Left TKA Hypercholesterolemia Hypothyroid Morbid obesity Diabetes mellitus DEWEY (obstructive sleep apnea) Surgical History Hx of wisdom tooth extraction History of left knee replacement History of colonoscopy (~01/16/15) Cholecystectomy Family History (Updated 01/21/24 @ 13:09 by Bert To) Mother Macular degeneration Atrial fibrillation Breast cancer Essential hypertension Father CHF (congestive heart failure) Hypertension Hyperlipidemia Other Heart disease Social History Smoking/Tobacco Use Status: Never Smoking risk assessment performed?: Yes Alcohol Intake: current Alcohol Intake frequency: holidays/special occasions only Alcohol type: beer and wine Drug use: Never Substance use type: does not use Housing: house Do you feel safe at home: Yes Do you feel safe in your relationship?: Yes
--- NOTE | 2024-04-08 10:04 | W.PC.ACHO ---
Registration Status: Primary Language: Preferred Language: Medical / Surgical History (Last Reviewed 04/07/24 @ 10:06 by Pari Rolle) Adenomatous colon polyp Heart murmur Seasonal allergies Iron (Fe) deficiency anemia Osteopenia Osteoarthritis Stress incontinence Depression Dyspepsia Hypertension History of pulmonary embolus (PE) Hypercholesterolemia Hypothyroid Morbid obesity Diabetes mellitus DEWEY (obstructive sleep apnea) (Last Reviewed 04/07/24 @ 10:06 by Pari Rolle) Hx of wisdom tooth extraction History of left knee replacement History of colonoscopy (~01/16/15) Cholecystectomy Most Recent Vital Signs Temperature 36.6 C 04/08/24 08:03 Temperature Source Temporal Artery Scan 04/08/24 08:03 Pulse 76 04/08/24 08:03 Pulse Rhythm Regular 04/07/24 09:50 Pulse 74 04/07/24 14:21 Respiratory Rate 18 04/08/24 08:03 Respiratory Effort Normal, Non-Labored 04/07/24 15:40 Respiratory Depth Normal 04/07/24 15:40 Respiratory Pattern Normal 04/07/24 15:40 Blood Pressure 141/74 H 04/08/24 08:03 Blood Pressure Mean 143 04/07/24 14:20 Pulse Oximetry 96 04/08/24 08:03 Respiratory End-tidal CO2 29 04/07/24 14:21 Oxygen Delivery Method Room Air 04/08/24 08:03 Oxygen Flow Rate 0 04/08/24 08:03 Pain Level 4 04/08/24 08:07 Comment BP not accurate/pt moving 04/07/24 14:20 Allergies nickel Allergy (Intermediate, Verified 04/07/24 09:58) Contraindicated eye glasses made rash under eyes sweeteners Allergy (Mild, Uncoded 04/07/24 09:58) Skin Rash Artificial sweeteners, headache, upset stomach Active Medications Generic Name Dose Route Start Last Admin Trade Name Freq PRN Reason Stop Dose Admin Acetaminophen 1,000 mg 04/07/24 20:00 04/08/24 08:07 Acetaminophen 500 Mg Tab PO 05/07/24 19:59 1,000 mg TID SHAWN Administration Apixaban 2.5 mg 04/07/24 20:00 04/08/24 08:09 Apixaban 2.5 Mg Tab PO 04/09/24 08:31 2.5 mg BID SHAWN Administration Aspirin 81 mg 04/08/24 08:30 04/08/24 08:08 Aspirin 81 Mg Chew PO 05/08/24 08:29 81 mg DAILY SHAWN Administration Celecoxib 200 mg 04/07/24 20:00 04/08/24 08:08 Celecoxib 200 Mg Cap PO 05/07/24 19:59 200 mg BID SHAWN Administration Cholecalciferol 2,000 units 04/08/24 08:30 04/08/24 08:07 Cholecalciferol (Vitamin D3) 1,000 Unit Tab PO 2,000 units DAILY SHAWN Administration Gabapentin 300 mg 04/07/24 20:00 04/08/24 08:09 Gabapentin 300 Mg Cap PO 05/07/24 19:59 300 mg TID SHAWN Administration Glipizide 10 mg 04/08/24 08:00 04/08/24 08:07 Glipizide Cr 10 Mg Tabcr PO 10 mg DAILY@0800 SHAWN Administration Cefazolin Sodium/Dextrose 1 gm in 50 mls @ 100 mls/hr 04/07/24 20:00 04/08/24 05:16 Ancef Duplex IVPB 04/08/24 12:29 Infused Q8H [facility] Infusion Insulin Aspart 0 units 04/07/24 17:00 04/08/24 08:11 Insulin Aspart 300 Units/3 Ml Pen SC 05/07/24 16:59 3 units 0800,1200,1700 [facility] Administration Protocol Insulin Glargine 5 units 04/07/24 20:00 04/07/24 20:57 Insulin Glargine 300 Units/3 Ml Pen SC 05/07/24 19:59 5 unit QPM SHAWN Administration Levothyroxine Sodium 175 mcg 04/08/24 06:00 04/08/24 06:03 Levothyroxine 175 Mcg Tab PO 175 mcg DAILY@0600 SHAWN Administration Lisinopril 5 mg 04/08/24 08:30 04/08/24 08:09 Lisinopril 5 Mg Tab PO 05/08/24 08:29 5 mg DAILY SHAWN Administration Magnesium Gluconate 250 mg 04/08/24 08:30 04/08/24 08:10 Magnesium Gluconate 500 Mg Tab PO 250 mg DAILY SHAWN Administration Metformin HCl 2,000 mg 04/07/24 18:00 04/07/24 17:30 Metformin C.R. 500 Mg Tabcr PO 2,000 mg DAILY@1800 SHAWN Administration Pantoprazole Sodium 40 mg 04/08/24 07:30 04/08/24 08:09 Pantoprazole 40 Mg Tabcr PO 05/08/24 07:29 40 mg DAILY@0730 SHAWN Administration Simvastatin 40 mg 04/07/24 20:00 04/07/24 20:57 Simvastatin 20 Mg Tab PO 05/07/24 19:59 40 mg HS SHAWN Administration IV IV Catheter Type [Right Saline Lock Forearm] IV Catheter Gauge [Right 20 Forearm] [id number] Documentation Fingerstick Glucose Start: 04/07/24 09:57 Freq: Status: Complete Protocol: Activity Type Activity Date Activity User E-sign Co-sign Detail Recorded Client Recorded Date Recorded By Document 04/07/24 09:55 BKG DAEMON(7) NVT-BG05 04/07/24 09:57 BKG DAEMON(8) Fingerstick Glucose Start: 04/07/24 12:00 Freq: .Stat Status: Complete Protocol: Activity Type Activity Date Activity User E-sign Co-sign Detail Recorded Client Recorded Date Recorded By Document 04/07/24 13:41 BKG DAEMON(9) NVT-BG05 04/07/24 13:42 BKG DAEMON(10) Fingerstick Glucose Start: 04/07/24 14:16 Freq: AC & HS Status: Active Protocol: Activity Type Activity Date Activity User E-sign Co-sign Detail Recorded Client Recorded Date Recorded By Document 04/08/24 08:01 BKG DAEMON(10) NVT-BG05 04/08/24 08:02 BKG DAEMON(10) Intake and Output - 24 Hour Total 02/20/24 07:54 thru 04/08/24 08:03 Intake Total 2310 Output Total 1225 Balance 1085 Weight 139.5 kg Intake: IV 2310 Output: Urine 1125 Estimated Blood Loss 100 Other: Urine Color Yellow Urine Appearance Clear Urine Odor Normal Comment straight cath'ed for 625 cc clear yellow urine pt unable to void and uncomfortable Emesis Description None Falls Risk Assessment History of Falls No History 04/07/24 15:40 Contributing Factors Impairments 04/07/24 15:40 Ambulatory Aids Uses ambulatory device 04/07/24 15:40 Tubes/Lines W/no contributing factors 04/07/24 15:40 Gait Evaluation W/any additional score 04/07/24 15:40 Cognition No cognitive impairment 04/07/24 15:40 Fall Total Score 48 04/07/24 15:40 Level of Risk Moderate Risk 04/07/24 15:40 v v v v v v v v v Sending and/or Receiving Nurses: Please use comment section below to note any information pertinent to the patient hand-off not included above. Information / Comments: Report received from: Keiko PENNY
--- NOTE | 2024-04-08 10:58 | W.PM.DS.N ---
Date of service: 04/08/24 Time of Service: 07:35 Discharge Plan Disposition Patient Disposition: Home W/Home Health Services Condition: Good Discharge Details Reason For Visit: Right knee DJD Admit Date/Time: 04/07/24 15:13 Admit Provider: Keyshawn Coles Attending Provider: Keyshawn Coles Primary Care Provider: Rosamaria Maldonado [facility] Course Hospital Course: Patient was admitted to the medical/surgical floor following the procedure. The surgery was tolerated well without any notable medical, surgical, or anesthetic complications. Mobilization began postoperatively. She was voiding spontaneously. Vitals were stable. Physical therapy worked with the patient and was cleared for discharge home. No acute medical issues. Pain was controlled on oral regimen. Home Meds and New Rx's Prescriptions: New acetaminophen 500 mg tablet 1,000 mg PO Q8H PRN (Reason: pain) Qty: 90 3RF celecoxib 200 mg capsule 200 mg PO BID PRN (Reason: pain) Qty: 60 1RF docusate sodium [Colace] 100 mg capsule 100 mg PO BID PRNQty: 10 0RF pantoprazole 40 mg tablet,delayed release (DR/EC) 40 mg PO DAILY Qty: 30 0RF oxycodone 5 mg tablet 5 mg PO Q4H PRNQty: 18 0RF Continued B-complex with vitamin C Capsule 1 cap PO DAILY cholecalciferol (vitamin D3) 50 mcg (2,000 unit) capsule 50 mcg PO DAILY aspirin [Aspirin Low-Strength] 81 MG tablet,chewable 81 mg PO DAILY ascorbic acid (vitamin C) 500 mg capsule PO cetirizine [Zyrtec] 10 mg tablet 10 mg PO DAILY PRN amoxicillin 500 mg capsule 500 mg PO PRN Rx Instructions: take 4 tabs 1 hour prior to dental work Ozempic 0.25 mg or 0.5 mg (2 mg/3 mL) pen injector 2 mg subcut QWEEK Patient Comments: Pt reported change to 1mg mupirocin 2 % ointment 1 applic topical TID gabapentin 300 mg capsule 300 mg PO TID lisinopril 5 MG tablet 5 mg PO DAILY multivitamin 1 EACH capsule 1 cap PO DAILY magnesium 250 mg tablet 250 mg PO DAILY insulin glargine [Lantus Solostar U-100 Insulin] 100 unit/mL (3 mL) insulin pen 5 unit SUBCUT QPM levothyroxine 175 mcg tablet 175 mcg PO DAILY@0600 simvastatin 40 mg tablet 40 mg PO DAILY metformin 1,000 mg tablet extended release 24hr 2,000 mg PO DAILY@1800 Rx Instructions: after dinner glipizide 10 mg tablet extended release 24hr 10 mg PO DAILY Eliquis 2.5 mg tablet 2.5 mg PO BID Qty: 2 0RF Rx Instructions: x 4 doses post-op then 5 mg BID Eliquis 5 mg tablet 5 mg PO BID Qty: 40 0RF Discontinued acetaminophen [Tylenol] 325 MG tablet 650 mg PO Q4H PRN Discharge Instructions Additional Instructions: Total Knee Discharge Instructions Activity: The most important activity is to walk and to work on gentle motion (both flexion and extension). You should try to take short walks a few times a day. It is important that when resting you work on keeping the knee straight. Avoid putting a pillow behind the knee as this will encourage flexion. Work on range of motion exercises as provided by Physical Therapy. - Start outpatient physical therapy within 2 weeks. - You should wear the CORTEZ hose on both legs for 2 weeks. You may remove these at night. You may also use any compression sock in place of the CORTEZ hose. - Utilize [employer] to review exercises, see videos on exercises and obtain basic information pertaining to your surgery and your recovery. Dressing: Remove the Parish wrap by 2 days after your surgery and put on the CORTEZ stocking given to you from the hospital. Keep the surgical dressing (underneath the PARISH wrap) in place for at least one week. After the first week it may be removed and replaced with light gauze and tape or nothing. The wound and dressing may get wet after 3 days but avoid soaking the dressing or otherwise it will need to be changed. Many people prefer covering the dressing with cling wrap (saran wrap) to minimize it from getting soaked. If it gets wet, just pat dry. If it starts to peel off then it will need to be changed. Medications: - You should take Tylenol and anti-inflammatory Celebrex as your primary pain control medications. If the Celebrex is too expensive or not covered, please call the office for another alternative (Advil/Ibuprofen or Naproxen/Aleve) - You have been prescribed a stronger pain medication Oxycodone for breakthrough pain, take as needed as prescribed. - You have also been prescribed a stomach acid reduction agent Pantoprozole to help reduce stomach acid and reflux. - You have been prescribed Gabapentin to take at night for restlessness and nerve pain. - You will be taking Apixaban twice daily for 6 weeks to prevent DVT, 2.5mg for 2 more doses and then 5mg twice daily. - If you have constipation you should take Colace (which has been prescribed) or Miralax (which is available [id number]). It takes most people 3-4 days to have a bowel movement. Follow-up: 2 weeks If you have any acute concerns or questions, please do not hesitate to contact the office at [phone]. You may contact Dr. Coles with any questions after hours through the hospital at [phone] or on his cell phone at [phone]. 1. Encounter Date and Reason I certify that Susana Levi was seen by Keyshawn Coles MD on 04/08/24 and that I had a [id number]-ph-xero encounter with this patient that meets the physician face to face encounter requirements. 2. Clinical Findings Supporting Skilled Need and Homebound Status I certify that home health services are medically necessary, include either intermittent [place] [facility] and/or physical/speech therapy, and that this patient is homebound in that absences from the home require considerable and taxing effort and are infrequent or of short duration, or are attributable to the need to receive medical care. [X] (a) Attached documentation from encounter provides clinical findings supporting skilled need and homebound status (including what assistance patient requires to leave the home). The encounter with the patient was in whole, or in part, for the following medical condition, which is the primary reason for home health care: Right knee DJD Assisted: Physical Therapy: Susana will benefit from physical therapy following knee replacement surgery due to weakness, decreased range of motion, and ambulatory dysfunction. She is weightbearing as tolerated with no particular restrictions. Initial therapy should focus on independent ambulation as well as gentle range of motion to extension and flexion as well as strengthening. Speech Therapy: Homebound: Susana is unable to leave her home unassisted due to weakness and gait abnormalities following knee replacement surgery. 3. Certification and Authentication I certify that I composed the above information based on my clinical judgement relating to this patient's medical condition and, if applicable, clinical findings communicated to me by the NPP or inpatient physician who performed the Home Health Referral. All further orders will be obtained through Dr. Coles Referrals: Keyshawn Coles MD [ [facility] STAFF PHYSICIAN] - Activity:: Activity as Tolerated Equipment/Supplies:: Walker Diet:: As Tolerated Discharge Orders Discharge Orders: Discharge Order (Routine); Ordered 04/08/24 Ordered By: Keyshawn Coles DS: Summary Time Spent with Patient providing and/or coordinating discharge services: Less than 30 minutes Status at Discharge Functional status at discharge: uses cane/walker Overall status at discharge: patient is progressing back to baseline Mental Status: mental status grossly normal Speech and Movement: speech and movement normal Mood: congruent mood Affect: normal affect Quality:SDOH Health Related Social Needs: Health related social needs feeling lonely/isolated (Z60.8) Exam Narrative Exam Narrative: Sitting up in the chair. No acute distress. Alert and x 3. Right lower extremity resting is clean dry and intact. The Parish wrap is removed. No significant ecchymosis. Able to extend the right knee with a minimal lag of nearly 5 degrees. She is able to flex to 90 degrees. No pain with range of motion. SILT DP/SP/Tib. Psych Mental Status: mental status grossly normal Speech and Movement: speech and movement normal Mood: congruent mood Affect: normal affect DS: Data Vitals/I&O Vitals and I&O: Intake & Output 04/06/24 04/06/24 04/07/24 11:59 23:59 11:59 Weight 302 lb 15.983 oz 302 lb 15.983 oz PFSH All Active Problems Degenerative joint disease of right knee (Chronic) Depo medrol injection: 10/06/23 Sebaceous cyst (Acute) Senile osteoporosis (Acute) Psoriasiform eczema (Acute) Hyperlipidemia (Chronic) Hypothyroidism (Chronic) Goiter (Chronic) Obesity (Chronic) Varicose veins (Chronic) Hypertension (Chronic) Diabetes mellitus (Chronic) Sleep apnea (Chronic) Status post total knee replacement (Acute 12/21/12) Bilateral pulmonary embolism (Acute 01/22/13) Medical History Adenomatous colon polyp Heart murmur Seasonal allergies Iron (Fe) deficiency anemia Osteopenia Osteoarthritis Stress incontinence Depression Dyspepsia Hypertension History of pulmonary embolus (PE) 2013 with Left TKA Hypercholesterolemia Hypothyroid Morbid obesity Diabetes mellitus DEWEY (obstructive sleep apnea) Surgical History Hx of wisdom tooth extraction History of left knee replacement History of colonoscopy (~01/16/15) Cholecystectomy Family History Mother Macular degeneration Atrial fibrillation Breast cancer Essential hypertension Father CHF (congestive heart failure) Hypertension Hyperlipidemia Other Heart disease Social History Smoking/Tobacco Use Status: Never Smoking risk assessment performed?: Yes Alcohol Intake: current Alcohol Intake frequency: holidays/special occasions only Alcohol type: beer and wine Drug use: Never Substance use type: does not use Housing: house Do you feel safe at home: Yes Do you feel safe in your relationship?: Yes Time Spent with Patient Time Spent with Patient: <45 minutes Time was spent: preparing to see the patient(eg.review tests)
[2024-04-08] MEDS: Normal Saline Flush 10 ML SYR IVP (11:37)
[2024-04-08 11:41] VITALS: BP 133/68; PULSE 72; RESP 18; TEMP 36.6; O2SAT 95
--- NOTE | 2024-04-08 11:48 | CMDISCH_ITS ---
Date of service: 04/08/24 Time of Service: 11:48 LACE Index Scoring Tool Questions: Length of Stay (in days): 1 Was the patient admitted via the E.D.?: No E.D. Visits: 0 Answers: Total Score: 1 Risk of Readmission: Low Risk Care Management Discharge Plan Reason for Hospitalization: Right DJD Discharge Plan: Discharge home with New [facility] via private vehicle with family. Follow up with Dr. Coles on 04/19/24, as scheduled. Patient/Family Education Needs: Review discharge instructions, limitations, medications and plan to follow up with Ortho after discharge. Discuss ask me three. Services Needed at Discharge: Home Health Care Services (New [facility]) SDOH Health Related Social Needs: Health related social needs feeling lonely/isolated (Z 60.8)
== END 2024-04-08 13:20 | disposition home health service (06) ==
LOC: MS 15:15
PROVIDERS: Admitting Provider Student in an Organized Health Care Education/Training Program; PCP Nurse Practitioner Family; Visit Provider Student in an Organized Health Care Education/Training Program
PROC: (CPT 27447; principal; 2024-04-07 10:45)
DX: M17.11 Unilateral primary osteoarthritis, right knee (principal); G89.18 Other acute postprocedural pain; M25.561 Pain in right knee; Z79.01 Long term (current) use of anticoagulants; Z79.4 Long term (current) use of insulin; Z79.85 Long-term (current) use of injectable non-insulin antidiabetic drugs; E66.01 Morbid (severe) obesity due to excess calories; Z68.43 Body mass index [BMI] 50.0-59.9, adult; E78.00 Pure hypercholesterolemia, unspecified; E03.9 Hypothyroidism, unspecified; D50.9 Iron deficiency anemia, unspecified
CPT/HCPCS: 27447; 64447; 96365; 96366; 97110; 97162; 97530; C1776; G0378; J0665; J0690; J1100; J1171; J1815; J2003; J2250; J2371; J2401; J2405; J2704; J3010

== ENCOUNTER 2024-04-19 15:50 | Outpatient (CLI) | payer MEDICARE, SELFPAY ==
--- NOTE | 2024-04-19 13:15 | DI.RAD_ITS ---
Exam(s) XR KNEE RT 1V XR STANDING ALIGNMENT EXAM: XR STANDING ALIGNMENT CLINICAL HISTORY: 1ST POST OP S/P R TKA. TECHNIQUE: 2D digital imaging was performed. Standing AP views were performed from the pelvis throu gh the ankles. COMPARISON: CR XR KNEE RT 3V AP,LAT,MANUELA from 10/06/2023 CR XR KNEE RT 1V from 04/19/2024 FINDINGS: The pelvic portion of the exam is limited by patient body habitus and is quite under penetrated. BONES: No acute fracture is present. No bony destructive lesion is seen. Leg length discrepancy: The left femoral head projects approximately 5 millimeters superior to the ri ght. JOINTS: Knees: Bilateral total knee prostheses show satisfactory alignment.. Ankles: Narrowing of both medial tibiotalar joint spaces. The hip joints are unremarkable. SOFT TISSUE: Soft tissue swelling and venous varicosities. Chronic soft tissue calcifications in the lower legs. IMPRESSION: Status post bilateral total knee prostheses. Mild leg length discrepancy. DATA REPOSITORY: RADIATION DOSE DELIVERED:
== END 2024-04-19 15:51 | disposition home or self-care (01) ==
LOC: DIORS 15:51
PROVIDERS: PCP Nurse Practitioner Family; Referring Provider Nurse Practitioner Family; Visit Provider Student in an Organized Health Care Education/Training Program
DX: Z96.651 Presence of right artificial knee joint (principal); Z47.1 Aftercare following joint replacement surgery
CPT/HCPCS: 99024; 73560; 77073

== ENCOUNTER 2024-05-13 13:11 | Inpatient (IN) | payer MEDICARE, SELFPAY ==
[2024-05-13] VITALS (34 sets, daily range): BP systolic 93–137; BP diastolic 45–65; PULSE 69–91; RESP 11–22; TEMP 36.7–37.4; O2SAT 89–98
--- NOTE | 2024-05-13 13:16 | W.ED.GENAD ---
Discharge Plan Disposition Patient Disposition: Admit to [facility] Discharge Details Clinical Impression: Acute kidney injury, SBO (small bowel obstruction) Primary Care Provider: Rosamaria Maldonado ED Provider: Kane Valverde [place] Meds and New Rx's Prescriptions: No Action B-complex with vitamin C Capsule 1 cap PO DAILY cholecalciferol (vitamin D3) 50 mcg (2,000 unit) capsule 50 mcg PO DAILY aspirin [Aspirin Low-Strength] 81 MG tablet,chewable 81 mg PO DAILY ascorbic acid (vitamin C) 500 mg capsule 500 mg PO DAILY cetirizine [Zyrtec] 10 mg tablet 10 mg PO DAILY PRN amoxicillin 500 mg capsule 500 mg PO PRN Rx Instructions: take 4 tabs 1 hour prior to dental work Ozempic 0.25 mg or 0.5 mg (2 mg/3 mL) pen injector 2 mg subcut QWEEK Patient Comments: Pt reported change to 1mg mupirocin 2 % ointment 1 applic topical TID gabapentin 300 mg capsule 300 mg PO TID oxycodone 5 mg tablet 5 mg PO Q4H MDD 6 tabs PRN (Reason: severe pain) Qty: 18 0RF Rx Instructions: take one tablet up to every 4 hours as needed for severe postoperative pain lisinopril 5 MG tablet 5 mg PO DAILY multivitamin 1 EACH capsule 1 cap PO DAILY magnesium 250 mg tablet 250 mg PO DAILY insulin glargine [Lantus Solostar U-100 Insulin] 100 unit/mL (3 mL) insulin pen 5 unit SUBCUT QPM levothyroxine 175 mcg tablet 175 mcg PO DAILY@0600 simvastatin 40 mg tablet 40 mg PO DAILY metformin 1,000 mg tablet extended release 24hr 2,000 mg PO DAILY@1800 Rx Instructions: after dinner glipizide 10 mg tablet extended release 24hr 10 mg PO DAILY acetaminophen 500 mg tablet 1,000 mg PO Q8H PRN (Reason: pain) Qty: 90 3RF celecoxib 200 mg capsule 200 mg PO BID PRN (Reason: pain) Qty: 60 1RF docusate sodium [Colace] 100 mg capsule 100 mg PO BID PRNQty: 10 0RF pantoprazole 40 mg tablet,delayed release (DR/EC) 40 mg PO DAILY Qty: 30 0RF Eliquis 2.5 mg tablet 2.5 mg PO BID Qty: 2 0RF Rx Instructions: x 4 doses post-op then 5 mg BID Eliquis 5 mg tablet 5 mg PO BID Qty: 40 0RF HPI General Date/Time Provider Initiated Documentation: 05/13/24 13:15. HPI Narrative: MDM This is an uncomfortable appearing normothermic and not tachycardic diabetic female with nausea vomiting abdominal pain concerning for multiple etiologies. Patient reports she has been unable to check her blood sugars in the past several days. Presentation is concerning for DKA for which she will receive fingerstick venous gas to assess for pH and comprehensive metabolic panel. She also has generalized abdominal tenderness concerning for possibility of SBO given nausea and vomiting for which she will undergo CT scan. Appendicitis diverticulitis remain on the differential. She has not had syncope to suggest aortic dissection. No history of ureterolithiasis and no lateralizing pain. No dysuria no frequency so my suspicion is low for UTI. No chest pain to suggest ACS and given tender abdomen I did not feel the patient required assessment of troponin nor ECG. No cough to suggest pneumonia. No shortness of breath to suggest PE and patient is not tachycardic nor hypoxic. Patient is not an alcoholic to suggest increased risk for cirrhosis. I considered sepsis however the patient denies fevers and is not tachycardic febrile so I did not treat empirically with broad-spectrum antibiotics. Given elevated BMI will obtain lipase to assess for pancreatitis. Patient does not appear volume overloaded to suggest acute heart failure. Will reassess following labs and CT. Will treat pain with morphine keep patient n.p.o. provide 500 cc crystalloid bolus and use ondansetron for nausea. 2 PM Fingerstick was 187. 3:17 PM Comprehensive metabolic panel shows very mild hyponatremia. Mild gap acidosis but normal bicarbonate??not consistent with DKA. Patient does have an acute kidney injury. She has mild elevation of her alkaline phosphatase similar to prior. Will provide 1 L of IV fluids and order CT scan without IV contrast. She has a reassuring troponin. 4:05 PM Patient has a small bowel obstruction. I was in touch with Dr. Crockett who requested NG tube. I ordered 50 mg of fentanyl prior to NG tube placement. Will touch base to the hospitalist service to request hospitalization with general surgery consultation. 4:15 PM I was in touch with Dr. Nguyen who graciously agreed to except the patient for hospitalization. 4:27 PM I was in touch with Dr. Crockett who requested an abdominal binder with some gauze underneath to keep the patient's hernia reduced. We unfortunately do not have an abdominal binder we will schedule the patient. Patient does have a soft reducible hernia but every time I attempt reduction her hernia sac bulges back out. She has no skin changes to suggest incarceration. Patient has no skin changes to suggest strangulation then no signs of incarceration however we will check a lactate to assess for ischemia. 4:57 PM Patient making urine in the emergency department on [place] placement. Repeat blood pressure reassuring. Reassuring lactate. HPI This is a 73-year-old insulin-dependent diabetic arrived emergency department via EMS in the setting of generalized abdominal pain nausea and vomiting. Patient has her symptoms began 5 days ago. She has been nauseous and vomiting. She has been weak and unable to walk as a result. She says that she had her knee replaced 5 weeks ago but has had no increased pain. She had no chest pain no dysuria. She has no history of ureterolithiasis. She denies fevers cough shortness of breath. She denies routine tobacco, ethanol, and illicits. She has not taken any recent falls. Remote history of cholecystectomy. Exam General: Well-appearing in no acute distress speaking in complete sentences. Head: Normocephalic, atraumatic. Eye: Extraocular eye movements intact. No conjunctival injection. No scleral icterus. Ear, nose, mouth, throat: Grossly normal inspection. Normal voice, handling secretions normally. Neck: Trachea midline. Cardiovascular: Well-perfused distal extremities. Respiratory: Nonlabored respiration. Clear lungs bilaterally. Gastrointestinal: Nondistended abdomen. Soft. Diffuse tenderness. No rebound. No guarding. Musculoskeletal: No edema. Moving all 4 extremities spontaneously. Skin: Normal for age and race, grossly normal temperature and turgor. No acute rash. Neurologic: Alert and appropriate, no apparent acute deficits. Psychiatric: Mood and manner are appropriate. Grooming and personal hygiene are appropriate. Related Data Home Medications ?Medication ?Instructions ?Recorded ?Confirmed lisinopril 5 mg tablet 5 mg PO DAILY 01/22/13 05/13/24 multivitamin 1 cap PO DAILY 01/22/13 05/13/24 aspirin 81 mg chewable tablet 81 mg PO DAILY 11/28/14 05/13/24 (Aspirin Low-Strength) amoxicillin 500 mg capsule 500 mg PO PRN 10/14/19 05/13/24 ascorbic acid (vitamin C) 500 mg 500 mg PO DAILY 10/14/19 05/13/24 capsule cetirizine 10 mg tablet (Zyrtec) 10 mg PO DAILY PRN 10/14/19 05/13/24 B-complex with vitamin C 1 cap PO DAILY 03/19/23 05/13/24 cholecalciferol (vitamin D3) 50 50 mcg PO DAILY 03/19/23 05/13/24 mcg (2,000 unit) capsule magnesium 250 mg tablet 250 mg PO DAILY 03/24/23 05/13/24 gabapentin 300 mg capsule 300 mg PO TID 01/21/24 05/13/24 mupirocin 2 % topical ointment 1 applic topical TID 01/21/24 05/13/24 semaglutide 0.25 mg or 0.5 mg (2 2 mg subcut QWEEK 01/21/24 05/13/24 mg/3 mL) subcutaneous pen injector (LessonwriterempLOOKK) insulin glargine 100 unit/mL (3 5 unit subcut QPM 04/06/24 05/13/24 mL) subcutaneous pen (Lantus Solostar U-100 Insulin) glipizide 10 mg tablet, extended 10 mg PO DAILY 04/07/24 05/13/24 release 24 hr levothyroxine 175 mcg tablet 175 mcg PO DAILY@0600 04/07/24 05/13/24 metformin 1,000 mg tablet,extended 2,000 mg PO DAILY@1800 04/07/24 05/13/24 release 24hr (osmotic) simvastatin 40 mg tablet 40 mg PO DAILY 04/07/24 05/13/24 acetaminophen 500 mg tablet 1,000 mg (2 x 500 mg) PO Q8H PRN 04/08/24 05/13/24 pain #90 tabs apixaban 2.5 mg tablet (Eliquis) 2.5 mg PO BID #2 tabs 04/08/24 05/13/24 apixaban 5 mg tablet (Eliquis) 5 mg PO BID #40 tabs 04/08/24 05/13/24 celecoxib 200 mg capsule 200 mg PO BID PRN pain #60 caps 04/08/24 05/13/24 docusate sodium 100 mg capsule 100 mg PO BID PRN #10 caps 04/08/24 05/13/24 (Colace) pantoprazole 40 mg tablet,delayed 40 mg PO DAILY #30 tabs 04/08/24 05/13/24 release oxycodone 5 mg tablet 5 mg PO Q4H PRN severe pain #18 04/14/24 05/13/24 tabs Previous Rx's ?Medication ?Instructions ?Recorded acetaminophen 500 mg tablet 1,000 mg (2 x 500 mg) PO Q8H PRN 04/08/24 pain #90 tabs apixaban 2.5 mg tablet (Eliquis) 2.5 mg PO BID #2 tabs 04/08/24 apixaban 5 mg tablet (Eliquis) 5 mg PO BID #40 tabs 04/08/24 celecoxib 200 mg capsule 200 mg PO BID PRN pain #60 caps 04/08/24 docusate sodium 100 mg capsule 100 mg PO BID PRN #10 caps 04/08/24 (Colace) pantoprazole 40 mg tablet,delayed 40 mg PO DAILY #30 tabs 04/08/24 release oxycodone 5 mg tablet 5 mg PO Q4H PRN severe pain #18 04/14/24 tabs Allergies Allergy/AdvReac Type Severity Reaction Status Date / Time nickel Allergy Intermediate Contraindic Verified 05/13/24 13:17 ated sweeteners Allergy Mild Skin Rash Uncoded 05/13/24 13:17 Medical Decision Making Quality:SDOH Health Related Social Needs: Health related social needs feeling lonely/isolated (Z60.8) PFSH All Active Problems (Updated 05/13/24 @ 16:16 by Kane Valverde MD) SBO (small bowel obstruction) (Acute) Acute kidney injury (Acute) History of total right knee replacement (Acute 04/07/24) Degenerative joint disease of right knee (Chronic) Depo medrol injection: 10/06/23 Sebaceous cyst (Acute) Senile osteoporosis (Acute) Psoriasiform eczema (Acute) Hyperlipidemia (Chronic) Hypothyroidism (Chronic) Goiter (Chronic) Obesity (Chronic) Varicose veins (Chronic) Hypertension (Chronic) Diabetes mellitus (Chronic) Sleep apnea (Chronic) Status post total knee replacement (Acute 12/21/12) Bilateral pulmonary embolism (Acute 01/22/13) Medical History Adenomatous colon polyp Heart murmur Seasonal allergies Iron (Fe) deficiency anemia Osteopenia Osteoarthritis Stress incontinence Depression Dyspepsia Hypertension History of pulmonary embolus (PE) 2013 with Left TKA Hypercholesterolemia Hypothyroid Morbid obesity Diabetes mellitus DEWEY (obstructive sleep apnea) Surgical History Hx of wisdom tooth extraction History of left knee replacement History of colonoscopy (~01/16/15) Cholecystectomy Family History Mother Macular degeneration Atrial fibrillation Breast cancer Essential hypertension Father CHF (congestive heart failure) Hypertension Hyperlipidemia Other Heart disease Social History Smoking/Tobacco Use Status: Never Smoking risk assessment performed?: Yes Alcohol Intake: current Alcohol Intake frequency: holidays/special occasions only Alcohol type: beer and wine Drug use: Never Substance use type: does not use Details: alcohol: 5 weeks ago Housing: house Do you feel safe at home: Yes Do you feel safe in your relationship?: Yes
--- NOTE | 2024-05-13 14:00 | RT.EKG_ITS ---
APPROVED REPORT Exam: Resting ECG Reason for Exam: hypoxia Patient Location: E HR:86 bpm ECG Measurements Heart Rate 86 AXIS CO 148 P 16 QRSd 93 QRS -15 QT 429 T 40 QTc 514 Conclusion Sinus rhythm...normal P axis, V-rate 60- 99 Left ventricular hypertrophy...multiple voltage criteria Anterior infarct, old...Q >40mS, abnormal ST-T, V2-V5 Prolonged QT interval...QTc >500mS ST segment mild elevation in aVR. Mild ST segment Depressionin lead I. Depression in lead I and aVL new compared to prior dated last year.
[2024-05-13] MEDS: Ondansetron 4 MG/2 ML VIAL IVP (14:21)
[2024-05-13 14:22] LABS: Abs Immature Grans 0.04 10^3/uL (0.0-0.06); Absolute Basophil Count 0.07 10^3/uL (0.0-0.2); Absolute Eosinophil Count 0.06 10^3/uL (0.0-0.7); Absolute Lymphocyte Count 1.12 10^3/uL (1.2-3.4); Absolute Monocyte Count 1.27 10^3/uL (0.1-0.8); Absolute Neutrophil Count 3.23 10^3/uL (1.2-6.7); BE (Venous) 2 mmol/L (-2-3); Basophils % 1.2 %; HCO3 (Venous) 25 mmol/L (23-28); HCT 37.6 % (36.0-46.0); HGB 12.3 g/dL (11.2-15.7); Immature Grans % 0.7 %; Lymphocytes % 19.3 %; MCH 28.7 pg (27.0-33.0); MCHC 32.7 % (32.0-36.0); MCV 88 fL (80-95); MPV 11.6 fL (8.0-11.0); Monocytes % 21.9 %; Neutrophils % 55.9 %; O2 Sat (Venous) 73 %; Platelet Count 274 10^3/uL (130-400); RBC 4.28 10^6/uL (3.93-5.22); RDW 14.3 % (11.7-14.6); RDW-SD 45.9 fL; TCO2 (Venous) 23 mmol/L (24-29); WBC 5.79 10^3/uL (4.4-10.8); pCO2 (Venous) 35 mmHg (41-51); pH (Venous) 7.47 (7.31-7.41); pO2 (Venous) 37 mmHg
[2024-05-13] MEDS: Normal Saline 500 ML 1000 ML IV (14:22)
[2024-05-13] MEDS: MORPHine 4 MG/ML SYR IVP (14:23)
[2024-05-13 14:30] LABS: Lab Add On Test DONE
--- NOTE | 2024-05-13 14:45 | DI.CT_ITS ---
Exam(s) CT CHEST/ABD/PEL WO EXAM: CT CHEST/ABD/PEL WO CLINICAL HISTORY: Hypoxia generalized abdominal pain. TECHNIQUE: Imaging Protocol: Axial computed tomography images with coronal and sagittal reformatted images were created and reviewed. Computer aided detection (CAD) was utilized. CONTRAST MATERIAL: Noncontrast COMPARISON: CT CHEST FOR PULMONARY EMBOLUS from 01/22/2013 FINDINGS: CHEST: Pulmonary parenchyma: Dependent changes posteriorly. No consolidation. No dominant measurable mass. Tracheobronchial tree: No bronchiectasis. No mucous plugging.No bronchial wall thickening. Pleura: No effusion or pneumothorax. Mediastinum: Within normal limits. Pulmonary arteries: Normal diameter. Cardiovascular: Mild enlargement of the left atrium and left ventricle. Aortic valve calcification s. Coronary artery calcifications. No pericardial effusion. Thoracic aorta non-dilated. Bones: Degenerative changes with prominent bridging osteophytes. No lytic or blastic lesions.No comp ression fractures. Soft tissues: Unremarkable. ABDOMEN and PELVIS: Liver: Enlarged. No suspicious mass. Gallbladder and biliary tract: Cholecystectomy. No biliary dilatation. Pancreas: Normal density, no abnormal calcifications or inflammatory process. Spleen: Normal. Kidneys: Normal size, contour and axis. No radiodense stones. No obstructive uropathy. No suspicious masses seen. Adrenal glands: No masses seen. Aorta: Abdominal portion non-dilated. Lymph nodes: Within normal limits. Soft tissues: There is a large umbilical hernia, measuring 13 cm cephalo caudad by 7 cm AP by 17 cm i n width. Loops of small bowel enter the hernia causing obstruction. The small bowel is dilated to 5 cm proximal. No wall thickening or pneumatosis. There is minimal colonic diverticulosis. There is a normal quantity of stool. Bladder: Unremarkable. Bowel: There is a large umbilical hernia, measuring 13 cm cephalocaudad by 7 cm AP by 17 cm in width. Loops of small bowel enter the hernia causing obstruction. The small bowel is dilated to 5 cm proxim al. No wall thickening or pneumatosis. There is minimal colonic diverticulosis. There is a normal quantity of stool. Peritoneal cavity: No ascites. No focal collection. No mesenteric inflammatory response. No free ai r. Bones: Unremarkable for age. Reproductive organs: Unremarkable for age. IMPRESSION: Chest: No acute abnormality. Abdomen pelvis: A loop of small bowel enters the large umbilical hernia causing obstruction. The sma ll bowel is dilated to 5 cm. Findings were called to Dr. Valverde of the emergency department. RADIATION DOSE DELIVERED: Total DLP DATA REPOSITORY: All CT scans at this facility are submitted to the National Radiology Data Registry (NRDR) Dose Index Registry (DIR) with the [employer] ([employer]). RADIATION OPTIMIZATION: All CT scans at this facility use at least one of these dose optimization te chniques: automated exposure control; mA and/or kV adjustment per patient size (includes targeted exa ms where dose is matched to clinical indication); or iterative reconstruction.
[2024-05-13 14:48] LABS: ALT 35 U/L (14-59); AST 17 U/L (15-37); Albumin 3.1 g/dL (3.4-5.0); Alkaline Phosphatase 144 U/L (46-116); Anion Gap 12.5 mmol/L (3-11); BUN 71 mg/dL (7-18); Bilirubin, Total 0.7 mg/dL (0.2-1.0); CO2 24.5 mmol/L (21.0-32.0); CREATININE 1.9 mg/dL (0.55-1.02); Calcium 9.3 mg/dL (8.5-10.1); Chloride 93 mmol/L (98-107); Estimated GFR 27.71 (mL/min/1.73m2); Glucose 246 mg/dL (74-106); Lipase 16 U/L (<78); Potassium 3.9 mmol/L (3.5-5.1); Sodium 130 mmol/L (136-145); Total Protein 7.1 g/dL (6.4-8.2); Troponin I 13 ng/L (<or=51)
[2024-05-13] MEDS: Normal Saline 1,000 ML 1000 ML IV (15:10)
--- NOTE | 2024-05-13 16:14 | HPE_ITS ---
<Statement entered by Kane Nguyen - 05/14/24 08:48> Agree with above, except she cannot take her apixaban. D/w Dr. Crockett. She is not a good surgical candidate in general, will try to manage non-operatively, but given her h/o PEs she should be bridged. Will discuss with pharmacy enoxaparin vs heparin drip given her BMI. Date of service: 05/13/24 Time of Service: 16:14 Assessment and Plan Assessment and plan (1) SBO (small bowel obstruction): Status: Acute Assessment and plan: NGT to LIS as per nursing protocol for RX admisnistration SX consult - ABD binder as per MD - Gastrografin protocol with KUB as per Dr. Crockett's orders NPO except Rx Compazine PRN PPI IV (2) Acute kidney injury: Status: Acute Assessment and plan: Cr 1.9 baseline 0.9 most likely prerenal On NS at 125 cc/hr in the ED completed 1 liter then d/c Changed to IVF DLR at 100 cc/hr last LVEF 52% in 12/2023 (3) Hypothyroidism: Status: Chronic Assessment and plan: Continue home meds regimen (4) Hypertension: Status: Chronic Assessment and plan: Hold lisinopril VS Q4 consider alternative Rx for HTN urgency (5) Diabetes mellitus: Status: Chronic Assessment and plan: Gluc AC and HS with SSI coverage (6) Bilateral pulmonary embolism: Status: Acute Assessment and plan: On chronic Eliquis - continue home therapy Discussed with Dr. Nguyen History of Present Illness History of Present Illness Chief Complaint: N/V abd pain Narrative: This 73 years old female patient w a PMHx significant for T2DM, Hypertension, hypothyroidism, recent R TKR on 03/2024, PE on Eliquis, obesity, abdominal hernia presented to the ED for evaluation of nausea, vomiting and abdominal pain. Workup in the ED was had positive abdominal CT findings of large umbilical hernia, measuring 13 cm cephalo caudad by 7 cm AP by 17 cm in width. with loops of small bowel enter the hernia causing obstruction with small bowel proximal dilation of 5 cm. Minimal colonic diverticulosis also seen. CBC was unremarkable, VBG showed partially compensated metabolic alkalosis w negative lactate, chemistry showed hyponatremia w Na at 130 , MEHUL satge II with Cr at 1.9 with baseline at 0.9, mag level ordered and pending.EKG was SR HR 86 and negative for coronary occlusion or ischemia; QTC was 514ms.In the ED abdominal binder was applied as per Sx consult with Dr. Crockett. The patient was admitted to the medical surgical floor for further management and evaluation of SBO, nausea, vomiting and MEHUL stage II. Full code status confirmed. Patient reported chills , intermittent diaphoresis and headaches , intermittent nausea vomiting abd pain starting on Friday; diarrhea X1 today.Denied chest pain, dysuria. Review of Systems All systems reviewed & are unremarkable except as noted in HPI and below PFSH All Active Problems (Updated 05/13/24 @ 16:16 by Kane Valverde MD) SBO (small bowel obstruction) (Acute) Acute kidney injury (Acute) History of total right knee replacement (Acute 04/07/24) Degenerative joint disease of right knee (Chronic) Depo medrol injection: 10/06/23 Sebaceous cyst (Acute) Senile osteoporosis (Acute) Psoriasiform eczema (Acute) Hyperlipidemia (Chronic) Hypothyroidism (Chronic) Goiter (Chronic) Obesity (Chronic) Varicose veins (Chronic) Hypertension (Chronic) Diabetes mellitus (Chronic) Sleep apnea (Chronic) Status post total knee replacement (Acute 12/21/12) Bilateral pulmonary embolism (Acute 01/22/13) Medical History Adenomatous colon polyp Heart murmur Seasonal allergies Iron (Fe) deficiency anemia Osteopenia Osteoarthritis Stress incontinence Depression Dyspepsia Hypertension History of pulmonary embolus (PE) 2012 with Left TKA Hypercholesterolemia Hypothyroid Morbid obesity Diabetes mellitus DEWEY (obstructive sleep apnea) Surgical History Hx of wisdom tooth extraction History of left knee replacement History of colonoscopy (~01/16/15) Cholecystectomy Family History Mother Macular degeneration Atrial fibrillation Breast cancer Essential hypertension Father CHF (congestive heart failure) Hypertension Hyperlipidemia Other Heart disease Social History Smoking/Tobacco Use Status: Never Smoking risk assessment performed?: Yes Alcohol Intake: current Alcohol Intake frequency: holidays/special occasions only Alcohol type: beer and wine Drug use: Never Substance use type: does not use Details: alcohol: 5 weeks ago Housing: house Do you feel safe at home: Yes Do you feel safe in your relationship?: Yes Meds Allergies and Home Medications Allergies Allergy/AdvReac Type Severity Reaction Status Date / Time nickel Allergy Intermediate Contraindic Verified 05/13/24 13:17 ated sweeteners Allergy Mild Skin Rash Uncoded 05/13/24 13:17 Home Medications ?Medication ?Instructions ?Recorded ?Confirmed ?Type lisinopril 5 mg tablet 5 mg PO DAILY 01/22/13 05/13/24 History multivitamin 1 cap PO DAILY 01/22/13 05/13/24 History aspirin 81 mg chewable tablet 81 mg PO DAILY 11/28/14 05/13/24 History (Aspirin Low-Strength) amoxicillin 500 mg capsule 500 mg PO PRN 10/14/19 05/13/24 History ascorbic acid (vitamin C) 500 mg 500 mg PO DAILY 10/14/19 05/13/24 History capsule cetirizine 10 mg tablet (Zyrtec) 10 mg PO DAILY PRN 10/14/19 05/13/24 History B-complex with vitamin C 1 cap PO DAILY 03/19/23 05/13/24 History cholecalciferol (vitamin D3) 50 50 mcg PO DAILY 03/19/23 05/13/24 History mcg (2,000 unit) capsule magnesium 250 mg tablet 250 mg PO DAILY 03/24/23 05/13/24 History gabapentin 300 mg capsule 300 mg PO TID 01/21/24 05/13/24 History mupirocin 2 % topical ointment 1 applic topical TID 01/21/24 05/13/24 History semaglutide 0.25 mg or 0.5 mg (2 2 mg subcut QWEEK 01/21/24 05/13/24 History mg/3 mL) subcutaneous pen injector (Ozempic) insulin glargine 100 unit/mL (3 5 unit subcut QPM 04/06/24 05/13/24 History mL) subcutaneous pen (Lantus Solostar U-100 Insulin) glipizide 10 mg tablet, extended 10 mg PO DAILY 04/07/24 05/13/24 History release 24 hr levothyroxine 175 mcg tablet 175 mcg PO DAILY@0600 04/07/24 05/13/24 History metformin 1,000 mg tablet,extended 2,000 mg PO DAILY@1800 04/07/24 05/13/24 History release 24hr (osmotic) simvastatin 40 mg tablet 40 mg PO DAILY 04/07/24 05/13/24 History acetaminophen 500 mg tablet 1,000 mg (2 x 500 mg) PO Q8H PRN 04/08/24 05/13/24 Rx pain #90 tabs apixaban 2.5 mg tablet (Eliquis) 2.5 mg PO BID #2 tabs 04/08/24 05/13/24 Rx apixaban 5 mg tablet (Eliquis) 5 mg PO BID #40 tabs 04/08/24 05/13/24 Rx celecoxib 200 mg capsule 200 mg PO BID PRN pain #60 caps 04/08/24 05/13/24 Rx docusate sodium 100 mg capsule 100 mg PO BID PRN #10 caps 04/08/24 05/13/24 Rx (Colace) pantoprazole 40 mg tablet,delayed 40 mg PO DAILY #30 tabs 04/08/24 05/13/24 Rx release oxycodone 5 mg tablet 5 mg PO Q4H PRN severe pain #18 04/14/24 05/13/24 Rx tabs Exam Narrative Exam Narrative: Constitutional The patient is in bed comfortable without acute distress obese HENMT: Head is atraumatic, normocephalic, no lymphadenopathy. Facial structures with normal appearance Eyes: Well aligned, intact ROM Neck: Normal ROM, no meningeal signs Neuro:alert and oriented X4 . No neurological focal deficit Chest:Chest is symmetrical and normal appearance Resp: Normal respiratory pattern, speaks in full sentences, unlabored breathing, clear lung bilaterally Cardio: regular rhythm, S1, S2, + murmur, bilateral radial and dorsalis pedis pulses are positive, palpable GI: Abdomen is not distended, soft and tender to LQs, bowel sounds diminshed to LLQ not heard otherwise : Negative Costovertebral angle tenderness, no bladder distension Back/spine/Pelvis: No back tenderness, normal alignment Integumentary: No skin lesions or rash to exposed skin Extremities: strength 5/5 to bilateral lower and upper extremities Psych: RASS 0, congruent mood and normal affect. Results Labs 05/13/24 14:15 05/13/24 14:15 Labs: Laboratory Results - last 24 hr 05/13/24 05/13/24 05/13/24 14:01 14:15 14:15 WBC 5.79 RBC 4.28 Hgb 12.3 Hct 37.6 MCV 88 MCH 28.7 MCHC 32.7 RDW 14.3 Plt Count 274 MPV 11.6 H Immature Gran % 0.7 Neutrophils % 55.9 Lymphocytes % 19.3 Monocytes % 21.9 Eosinophils % 1.0 Basophils % 1.2 Nucleated RBC % 0.0 Absolute Neutrophils 3.23 Absolute Lymphocytes 1.12 L Absolute Monocytes 1.27 H Absolute Eosinophils 0.06 Absolute Basophils 0.07 VBG pH 7.47 H VBG pCO2 35 L VBG pO2 37 VBG HCO3 25 VBG Total CO2 23 L VBG O2 Saturation 73 VBG Base Excess 2 Sodium 130 L Potassium 3.9 Chloride 93 L Carbon Dioxide 24.5 Anion Gap 12.5 H BUN 71 H Creatinine 1.9 H Est GFR (CKD-EPI 2020) 27.71 Glucose 246 H Calcium 9.3 Total Bilirubin 0.7 AST 17 ALT 35 Alkaline Phosphatase 144 H Troponin I 13 Cancelled Total Protein 7.1 Albumin 3.1 L Lipase 16 Add-On Test Request DONE Last Vital Signs Temp 36.9 C 05/13/24 13:16 Pulse 91 H 05/13/24 16:03 Resp 21 05/13/24 16:03 BP 151/122 H 05/13/24 16:03 Pulse Ox 97 05/13/24 16:03 Time Spent Time spent with Patient: >75 minutes Time was spent: preparing to see the patient(eg.review tests), obtaining and/or reviewing separately otained hiistory, ordering medications,tests, procedures, referring, communicating with other health care assistant, indepentently interpreting results, counseling the patient and care coordination
[2024-05-13 16:19] LABS: Troponin I 10 ng/L (<or=51)
[2024-05-13 16:35] LABS: Lactate 1.2 mmol/L (<or=2.0)
[2024-05-13] MEDS: Normal Saline 1,000 ML 125 ML IV (16:40)
[2024-05-13 16:46] LABS: COVID-19 PCR Negative (Negative); Influenza A PCR Negative (Negative); Influenza B PCR Negative (Negative); RSV PCR Negative (Negative)
[2024-05-13 16:47] LABS: Magnesium 2.3 mg/dL (1.8-2.4)
[2024-05-13 16:48] LABS: Source Nasopharynx
--- NOTE | 2024-05-13 16:56 | W.SURGCON ---
Date of service: 05/13/24 Time of Service: 17:30 Assessment and Plan Assessment and plan (1) SBO (small bowel obstruction): Status: Acute Assessment and plan: 73-year-old woman with a large?mouth chronic ventral hernia in the setting of severe morbid obesity that is causing a small bowel obstruction. The etiology of the bowel obstruction is unlikely to be the hernia itself but rather adhesions within the hernia sac considering how large the defect is. This is a very complex surgical situation and the patient is NOT an ideal surgical candidate. She is extremely high?risk for surgical complications regarding hernia repair and even, an elective ventral hernia repair is contraindicated considering her body habitus and comorbidities. Surgery is a LAST RESORT for her. I have no concerns about bowel compromise or bowel ischemia considering this has been going on for 3 days and yet she has no elevation in her lactic acid, no leukocytosis and no pneumatosis of the bowel wall on CT scan. This situation is treated like any other typical mechanical small bowel obstruction - with NG tube decompression, and patiently waiting. We can have reasonable optimism considering her ventral hernia is very soft and reducible. It is also completely understandable that it spontaneously recurs after reduction considering how large it is. Her overall medical situation is also complex considering poorly?controlled diabetes, severe morbid obesity and her history of DVTs and bilateral PEs. While it would be prudent to hold her anticoagulation, she absolutely needs to be bridged because of her history. She has a history of recent orthopedic surgery within the last 30-60 days. Overall recommendations: Admission to the medical service - surgery will stay on board for consultation. NG tube decompression - low constant suction An abdominal binder should be tried for a couple of days to see if it can keep the hernia reduced Rehydration/resuscitation as well as 1:1 replacement of GI losses from NG tube with LR Gastrografin study should be initiated TOMORROW if no bowel output and/or bowel activity improvement IF the patient fails to progress, there should be consideration about the possibility of needing to transfer to a higher level of care for further surgical management considering the high?risk for perioperative and postoperative complications in this case. History of Present Illness Narrative: The patient is a 73-year-old woman with severe morbid obesity (BMI 50) and uncontrolled diabetes who presented to the emergency department with 3 days of nausea and vomiting, no bowel output and no appetite. At the time of presentation she had mild to moderate abdominal pain. CT scan showed a small bowel obstruction in a very large ventral hernia. The patient has significant dehydration on presentation but no leukocytosis and no shift. Lactate was normal. She is anticoagulated on Eliquis and has a history of DVTs and PE. The ED physician reports that the patient' ventral hernia is soft and was able to be easily reduced at the bedside. However, it does spontaneously recur after reduction. PFSH All Active Problems (Updated 05/13/24 @ 16:16 by Kane Valverde MD) SBO (small bowel obstruction) (Acute) Acute kidney injury (Acute) History of total right knee replacement (Acute 04/07/24) Degenerative joint disease of right knee (Chronic) Depo medrol injection: 10/06/23 Sebaceous cyst (Acute) Senile osteoporosis (Acute) Psoriasiform eczema (Acute) Hyperlipidemia (Chronic) Hypothyroidism (Chronic) Goiter (Chronic) Obesity (Chronic) Varicose veins (Chronic) Hypertension (Chronic) Diabetes mellitus (Chronic) Sleep apnea (Chronic) Status post total knee replacement (Acute 12/21/12) Bilateral pulmonary embolism (Acute 01/22/13) Medical History Adenomatous colon polyp Heart murmur Seasonal allergies Iron (Fe) deficiency anemia Osteopenia Osteoarthritis Stress incontinence Depression Dyspepsia Hypertension History of pulmonary embolus (PE) 2012 with Left TKA Hypercholesterolemia Hypothyroid Morbid obesity Diabetes mellitus DEWEY (obstructive sleep apnea) Surgical History Hx of wisdom tooth extraction History of left knee replacement History of colonoscopy (~01/16/15) Cholecystectomy Family History Mother Macular degeneration Atrial fibrillation Breast cancer Essential hypertension Father CHF (congestive heart failure) Hypertension Hyperlipidemia Other Heart disease Social History Smoking/Tobacco Use Status: Never Smoking risk assessment performed?: Yes Alcohol Intake: current Alcohol Intake frequency: holidays/special occasions only Alcohol type: beer and wine Drug use: Never Substance use type: does not use Details: alcohol: 5 weeks ago Housing: house Do you feel safe at home: Yes Do you feel safe in your relationship?: Yes Exam Narrative Exam Narrative: By report: Hemodynamically stable, in no extremis, cooperative and interactive. Morbidly obese. Abdominal exam is without peritoneal signs very soft and there is a large ventral hernia that is palpable and soft and reducible. Results Last Vital Signs Temp 98.4 F 05/13/24 13:16 Pulse 87 05/13/24 16:50 Resp 20 05/13/24 16:50 BP 124/45 L 05/13/24 16:49 Pulse Ox 96 05/13/24 16:50 Labs 05/13/24 14:15 05/13/24 14:15 Labs: Laboratory Results - last 24 hr 05/13/24 05/13/24 05/13/24 14:01 14:15 14:15 WBC 5.79 RBC 4.28 Hgb 12.3 Hct 37.6 MCV 88 MCH 28.7 MCHC 32.7 RDW 14.3 Plt Count 274 MPV 11.6 H Immature Gran % 0.7 Neutrophils % 55.9 Lymphocytes % 19.3 Monocytes % 21.9 Eosinophils % 1.0 Basophils % 1.2 Nucleated RBC % 0.0 Absolute Neutrophils 3.23 Absolute Lymphocytes 1.12 L Absolute Monocytes 1.27 H Absolute Eosinophils 0.06 Absolute Basophils 0.07 VBG pH 7.47 H VBG pCO2 35 L VBG pO2 37 VBG HCO3 25 VBG Total CO2 23 L VBG O2 Saturation 73 VBG Base Excess 2 VBG Lactate Sodium 130 L Potassium 3.9 Chloride 93 L Carbon Dioxide 24.5 Anion Gap 12.5 H BUN 71 H Creatinine 1.9 H Est GFR (CKD-EPI 2020) 27.71 Glucose 246 H Calcium 9.3 Magnesium Total Bilirubin 0.7 AST 17 ALT 35 Alkaline Phosphatase 144 H Troponin I 13 Cancelled Total Protein 7.1 Albumin 3.1 L Lipase 16 COVID-19 Source SARS-CoV-2 (PCR) Influenza Type A (PCR) Influenza Type B (PCR) RSV (PCR) Add-On Test Request DONE 05/13/24 05/13/24 05/13/24 15:56 16:06 16:31 WBC RBC Hgb Hct MCV MCH MCHC RDW Plt Count MPV Immature Gran % Neutrophils % Lymphocytes % Monocytes % Eosinophils % Basophils % Nucleated RBC % Absolute Neutrophils Absolute Lymphocytes Absolute Monocytes Absolute Eosinophils Absolute Basophils VBG pH VBG pCO2 VBG pO2 VBG HCO3 VBG Total CO2 VBG O2 Saturation VBG Base Excess VBG Lactate 1.2 Sodium Potassium Chloride Carbon Dioxide Anion Gap BUN Creatinine Est GFR (CKD-EPI 2020) Glucose Calcium Magnesium 2.3 Total Bilirubin AST ALT Alkaline Phosphatase Troponin I 10 Total Protein Albumin Lipase COVID-19 Source Nasopharynx SARS-CoV-2 (PCR) Negative Influenza Type A (PCR) Negative Influenza Type B (PCR) Negative RSV (PCR) Negative Add-On Test Request
[2024-05-13 17:44] LABS: Bilirubin Moderate (Negative); Blood Negative (Negative); Clarity Sl Cloudy (Clear); Glucose Negative (Negative); Ketones Trace mg/dL (Negative); Leukocyte Esterase Negative (Negative); Nitrite Negative (Negative); Specific Gravity 1.025 (1.005-1.025); Urobilinogen 0.2 mg/dL (Up to 0.2)
--- NOTE | 2024-05-13 17:45 | DI.RAD_ITS ---
Exam(s) XR PORTABLE CHEST AP EXAM: XR PORTABLE CHEST AP CLINICAL HISTORY: NGT placement confirmation TECHNIQUE: 2D digital imaging was performed. COMPARISON: CT CT CHEST/ABD/PEL WO from 05/13/2024 FINDINGS: Nasogastric tube has been inserted with the tip lying just below the GE junction. LUNGS: Suboptimally inflated. Grossly clear. No pleural abnormality seen. HEART: Enlarged. AORTA: Normal diameter. BONES: Unremarkable for age. Soft tissues: Unremarkable. IMPRESSION: The tip of the nasogastric tube projects just below the level of the GE junction. DATA REPOSITORY: RADIATION DOSE DELIVERED:
[2024-05-13 18:00] LABS: Epithelial Cells Moderate HPF (Negative); Other Cells Few Transitional (Negative); RBC 0-2 HPF (0-2); WBC 0-2 HPF (0-5)
[2024-05-13 18:01] LABS: Bacteria Moderate HPF (Negative); C & S Indicated? No/Sq. Contamination; Casts 0-2 Hyaline LPF (Negative); Crystals Negative HPF (Negative); Mucus Negative (Negative)
--- NOTE | 2024-05-13 18:09 | W.PC.ACHO ---
Registration Status: Primary Language: Preferred Language: ED Information & Data Chief Complaint Abd Prob 05/13/24 13:18 Chief Complaint Abd Prob 05/13/24 13:14 Triage Note pt has 3 days n/v abd pain. 05/13/24 13:14 Medical / Surgical History (Last Reviewed 04/08/24 @ 10:58 by Keyshawn Coles MD) Adenomatous colon polyp Heart murmur Seasonal allergies Iron (Fe) deficiency anemia Osteopenia Osteoarthritis Stress incontinence Depression Dyspepsia Hypertension History of pulmonary embolus (PE) Hypercholesterolemia Hypothyroid Morbid obesity Diabetes mellitus DEWEY (obstructive sleep apnea) (Last Reviewed 04/08/24 @ 10:58 by Keyshawn Coles MD) Hx of wisdom tooth extraction History of left knee replacement History of colonoscopy (~01/16/15) Cholecystectomy Most Recent Vital Signs Temperature 36.9 C 05/13/24 17:35 Pulse 90 05/13/24 17:35 Pulse Rhythm Regular 05/13/24 17:35 Pulse 88 05/13/24 16:50 Respiratory Rate 18 05/13/24 17:35 Respiratory Effort Normal 05/13/24 17:35 Blood Pressure 118/52 L 05/13/24 17:35 Blood Pressure Mean 73 05/13/24 16:49 Pulse Oximetry 94 05/13/24 17:35 Oxygen Delivery Method Room Air 05/13/24 17:35 Oxygen Flow Rate 0 05/13/24 17:35 Pain Level 3 05/13/24 17:02 Comment placed on 2L n/c 05/13/24 14:10 Allergies nickel Allergy (Intermediate, Verified 05/13/24 13:17) Contraindicated eye glasses made rash under eyes sweeteners Allergy (Mild, Uncoded 05/13/24 13:17) Skin Rash Artificial sweeteners, headache, upset stomach Active Medications Generic Name Dose Route Start Last Admin Trade Name Freq PRN Reason Stop Dose Admin Sodium Chloride 1,000 mls @ 125 mls/hr 05/13/24 16:00 05/13/24 16:40 Saline 1000ml Bag IV 05/14/24 03:59 125 mls/hr INFUSION SHAWN Administration IV IV Catheter Type [Left Saline Lock Antecubital] IV Catheter Gauge [Left 18 Antecubital] Diet Orders Category Date Time Status Nothing Per Oral [DIET] Nutrition 05/13/24 Dinner Active Diagnostics 05/13/24 05/13/24 05/13/24 Range/Units 17:07 16:31 16:06 WBC (4.4-10.8) 10^3/uL RBC (3.93-5.22) 10^6/uL Hgb (11.2-15.7) g/dL Hct (36.0-46.0) % MCV (80-95) fL MCH (27.0-33.0) pg MCHC (32.0-36.0) % RDW (11.7-14.6) % Plt Count (130-400) 10^3/uL MPV (8.0-11.0) fL Immature Gran % % Neutrophils % % Lymphocytes % % Monocytes % % Eosinophils % % Basophils % % Nucleated RBC % (0.0-0.3) % Absolute Neutrophils (1.2-6.7) 10^3/uL Absolute Lymphocytes (1.2-3.4) 10^3/uL Absolute Monocytes (0.1-0.8) 10^3/uL Absolute Eosinophils (0.0-0.7) 10^3/uL Absolute Basophils (0.0-0.2) 10^3/uL VBG pH (7.31-7.41) VBG pCO2 (41-51) mmHg VBG pO2 mmHg VBG HCO3 (23-28) mmol/L VBG Total CO2 (24-29) mmol/L VBG O2 Saturation % VBG Base Excess (-2-3) mmol/L VBG Lactate 1.2 (<or=2.0) mmol/L Sodium (136-145) mmol/L Potassium (3.5-5.1) mmol/L Chloride (98-107) mmol/L Carbon Dioxide (21.0-32.0) mmol/L Anion Gap (3-11) mmol/L BUN (7-18) mg/dL Creatinine (0.55-1.02) mg/dL Est GFR (CKD-EPI 2020) (mL/min/1.73m2) Glucose (74-106) mg/dL Calcium (8.5-10.1) mg/dL Magnesium (1.8-2.4) mg/dL Total Bilirubin (0.2-1.0) mg/dL AST (15-37) U/L ALT (14-59) U/L Alkaline Phosphatase (46-116) U/L Troponin I (<or=51) ng/L Total Protein (6.4-8.2) g/dL Albumin (3.4-5.0) g/dL Lipase (<78) U/L Urine Color Yellow (Yellow) Urine Clarity Sl Cloudy (Clear) Urine pH 5.0 (5-8) Ur Specific Paul 1.025 (1.005-1.025) Urine Protein 30 H (Neg-Trace) mg/dL Urine Ketones Trace H (Negative) mg/dL Urine Blood Negative (Negative) Urine Nitrite Negative (Negative) Urine Bilirubin Moderate H (Negative) Urine Urobilinogen 0.2 (Up to 0.2) mg/dL Ur Leukocyte Esterase Negative (Negative) Urine RBC 0-2 (0-2) HPF Urine WBC 0-2 (0-5) HPF Ur Epithelial Cells Moderate (Negative) HPF Urine Crystals Negative (Negative) HPF Urine Bacteria Moderate (Negative) HPF Urine Casts 0-2 Hyaline (Negative) LPF Urine Mucus Negative (Negative) Urine Other Few Transitional (Negative) Ur Culture Indicated? No/Sq. Contamination Urine Glucose Negative (Negative) mg/dL COVID-19 Source Nasopharynx SARS-CoV-2 (PCR) Negative (Negative) Influenza Type A (PCR) Negative (Negative) Influenza Type B (PCR) Negative (Negative) RSV (PCR) Negative (Negative) Add-On Test Request 05/13/24 05/13/24 05/13/24 Range/Units 15:56 14:15 14:15 WBC 5.79 (4.4-10.8) 10^3/uL RBC 4.28 (3.93-5.22) 10^6/uL Hgb 12.3 (11.2-15.7) g/dL Hct 37.6 (36.0-46.0) % MCV 88 (80-95) fL MCH 28.7 (27.0-33.0) pg MCHC 32.7 (32.0-36.0) % RDW 14.3 (11.7-14.6) % Plt Count 274 (130-400) 10^3/uL MPV 11.6 H (8.0-11.0) fL Immature Gran % 0.7 % Neutrophils % 55.9 % Lymphocytes % 19.3 % Monocytes % 21.9 % Eosinophils % 1.0 % Basophils % 1.2 % Nucleated RBC % 0.0 (0.0-0.3) % Absolute Neutrophils 3.23 (1.2-6.7) 10^3/uL Absolute Lymphocytes 1.12 L (1.2-3.4) 10^3/uL Absolute Monocytes 1.27 H (0.1-0.8) 10^3/uL Absolute Eosinophils 0.06 (0.0-0.7) 10^3/uL Absolute Basophils 0.07 (0.0-0.2) 10^3/uL VBG pH 7.47 H (7.31-7.41) VBG pCO2 35 L (41-51) mmHg VBG pO2 37 mmHg VBG HCO3 25 (23-28) mmol/L VBG Total CO2 23 L (24-29) mmol/L VBG O2 Saturation 73 % VBG Base Excess 2 (-2-3) mmol/L VBG Lactate (<or=2.0) mmol/L Sodium 130 L (136-145) mmol/L Potassium 3.9 (3.5-5.1) mmol/L Chloride 93 L (98-107) mmol/L Carbon Dioxide 24.5 (21.0-32.0) mmol/L Anion Gap 12.5 H (3-11) mmol/L BUN 71 H (7-18) mg/dL Creatinine 1.9 H (0.55-1.02) mg/dL Est GFR (CKD-EPI 2020) 27.71 (mL/min/1.73m2) Glucose 246 H (74-106) mg/dL Calcium 9.3 (8.5-10.1) mg/dL Magnesium 2.3 (1.8-2.4) mg/dL Total Bilirubin 0.7 (0.2-1.0) mg/dL AST 17 (15-37) U/L ALT 35 (14-59) U/L Alkaline Phosphatase 144 H (46-116) U/L Troponin I 10 Cancelled 13 (<or=51) ng/L Total Protein 7.1 (6.4-8.2) g/dL Albumin 3.1 L (3.4-5.0) g/dL Lipase 16 (<78) U/L Urine Color (Yellow) Urine Clarity (Clear) Urine pH (5-8) Ur Specific Paul (1.005-1.025) Urine Protein (Neg-Trace) mg/dL Urine Ketones (Negative) mg/dL Urine Blood (Negative) Urine Nitrite (Negative) Urine Bilirubin (Negative) Urine Urobilinogen (Up to 0.2) mg/dL Ur Leukocyte Esterase (Negative) Urine RBC (0-2) HPF Urine WBC (0-5) HPF Ur Epithelial Cells (Negative) HPF Urine Crystals (Negative) HPF Urine Bacteria (Negative) HPF Urine Casts (Negative) LPF Urine Mucus (Negative) Urine Other (Negative) Ur Culture Indicated? Urine Glucose (Negative) mg/dL COVID-19 Source SARS-CoV-2 (PCR) (Negative) Influenza Type A (PCR) (Negative) Influenza Type B (PCR) (Negative) RSV (PCR) (Negative) Add-On Test Request 05/13/24 Range/Units 14:01 WBC (4.4-10.8) 10^3/uL RBC (3.93-5.22) 10^6/uL Hgb (11.2-15.7) g/dL Hct (36.0-46.0) % MCV (80-95) fL MCH (27.0-33.0) pg MCHC (32.0-36.0) % RDW (11.7-14.6) % Plt Count (130-400) 10^3/uL MPV (8.0-11.0) fL Immature Gran % % Neutrophils % % Lymphocytes % % Monocytes % % Eosinophils % % Basophils % % Nucleated RBC % (0.0-0.3) % Absolute Neutrophils (1.2-6.7) 10^3/uL Absolute Lymphocytes (1.2-3.4) 10^3/uL Absolute Monocytes (0.1-0.8) 10^3/uL Absolute Eosinophils (0.0-0.7) 10^3/uL Absolute Basophils (0.0-0.2) 10^3/uL VBG pH (7.31-7.41) VBG pCO2 (41-51) mmHg VBG pO2 mmHg VBG HCO3 (23-28) mmol/L VBG Total CO2 (24-29) mmol/L VBG O2 Saturation % VBG Base Excess (-2-3) mmol/L VBG Lactate (<or=2.0) mmol/L Sodium (136-145) mmol/L Potassium (3.5-5.1) mmol/L Chloride (98-107) mmol/L Carbon Dioxide (21.0-32.0) mmol/L Anion Gap (3-11) mmol/L BUN (7-18) mg/dL Creatinine (0.55-1.02) mg/dL Est GFR (CKD-EPI 2020) (mL/min/1.73m2) Glucose (74-106) mg/dL Calcium (8.5-10.1) mg/dL Magnesium (1.8-2.4) mg/dL Total Bilirubin (0.2-1.0) mg/dL AST (15-37) U/L ALT (14-59) U/L Alkaline Phosphatase (46-116) U/L Troponin I (<or=51) ng/L Total Protein (6.4-8.2) g/dL Albumin (3.4-5.0) g/dL Lipase (<78) U/L Urine Color (Yellow) Urine Clarity (Clear) Urine pH (5-8) Ur Specific Paul (1.005-1.025) Urine Protein (Neg-Trace) mg/dL Urine Ketones (Negative) mg/dL Urine Blood (Negative) Urine Nitrite (Negative) Urine Bilirubin (Negative) Urine Urobilinogen (Up to 0.2) mg/dL Ur Leukocyte Esterase (Negative) Urine RBC (0-2) HPF Urine WBC (0-5) HPF Ur Epithelial Cells (Negative) HPF Urine Crystals (Negative) HPF Urine Bacteria (Negative) HPF Urine Casts (Negative) LPF Urine Mucus (Negative) Urine Other (Negative) Ur Culture Indicated? Urine Glucose (Negative) mg/dL COVID-19 Source SARS-CoV-2 (PCR) (Negative) Influenza Type A (PCR) (Negative) Influenza Type B (PCR) (Negative) RSV (PCR) (Negative) Add-On Test Request DONE Intake and Output - 24 Hour Total 05/13/24 13:03 thru 05/13/24 17:35 Intake Total 1500 Balance 1500 Weight 135.624 kg Intake: IV 1500 Other: Urine Color Light Christy Urine Appearance Clear Urinary Catheter Urinary Catheter Date of 05/13/24 Insertion [Urethral ([place])] Time of insertion [Urethral ( 16:08 [place])] Falls Risk Assessment History of Falls No History 05/13/24 17:35 Contributing Factors No Factors 05/13/24 17:35 Ambulatory Aids Independent 05/13/24 17:35 Tubes/Lines With any additional score 05/13/24 17:35 Gait Evaluation No gait disturbance 05/13/24 17:35 Cognition No cognitive impairment 05/13/24 17:35 Fall Total Score 20 05/13/24 17:35 Level of Risk Standard/Low Risk 05/13/24 17:35 Problems (Last Reviewed 04/08/24 @ 10:58 by Keyshawn Coles MD) SBO (small bowel obstruction) (Acute) Acute kidney injury (Acute) Hypothyroidism (Chronic) Hypertension (Chronic) Diabetes mellitus (Chronic) Bilateral pulmonary embolism (Acute 01/22/13) v v v v v v v v v Sending and/or Receiving Nurses: Please use comment section below to note any information pertinent to the patient hand-off not included above. Information / Comments: A&O x4, lives at home with son, independent, recent R knee replacement 5 weeks ago, abd pain w/ N/V x5 days caused increased weakness. SBO, Hernia w/ loops of bowels in it, [place] placed in ER for MEHUL, Insulin dept DM x2. 18G LAC placed by EMIR, Report received from: Jolly SOLER RN at 1700
--- NOTE | 2024-05-13 18:30 | DI.RAD_ITS ---
Exam(s) XR PORTABLE CHEST AP POST LINE EXAM: XR PORTABLE CHEST AP POST LINE CLINICAL HISTORY: NG tube advanced. Placement confirmation TECHNIQUE: 2D digital imaging was performed. COMPARISON: CR XR PORTABLE CHEST AP from 05/13/2024 FINDINGS: A nasogastric tube is again noted. The tip projects below the diaphragm however the tip cannot be v isualized due to underpenetration. LUNGS: Clear. No pleural abnormality seen. HEART: Normal size. AORTA: Normal diameter. BONES: Unremarkable for age. Soft tissues: Unremarkable. IMPRESSION: The nasogastric tube projects below the diaphragm however the tip is not visible due to under penetra tion. DATA REPOSITORY: RADIATION DOSE DELIVERED:
[2024-05-13] MEDS: ACETAMINOPHEN 1,000 MG/100 ML BAG 400 MG IVPB (18:42)
[2024-05-13] MEDS: Pantoprazole 40 MG VIAL IVP (18:42)
--- NOTE | 2024-05-13 18:53 | NUR.NOTE ---
Nursing Note: Dr Nguyen and Silke Xie CRYPTOLOGIC SUPPORT SPECIALIST at bedside to try and reduce hernia and place abd binder. at this time they were not able to reduce hernia due to amount of bowel loops and did not feel it was appropriate to place binder on at this time. Follow up with General Surgery. SARAH RN
[2024-05-13] MEDS: Apixaban 5 MG TAB PO (19:43)
[2024-05-13] MEDS: DEXTROSE 5%-LACTATED RINGERS 1,000 ML 100 ML IV (23:30)
[2024-05-14] MEDS: ACETAMINOPHEN 1,000 MG/100 ML BAG 400 MG IVPB ×3 (02:08→19:37)
[2024-05-14 03:19] VITALS: BP 119/58; PULSE 89; RESP 18; TEMP 36.7; O2SAT 92
[2024-05-14] MEDS: Levothyroxine 175 MCG TAB PO (05:52)
[2024-05-14] MEDS: HYDROmorphone 2 MG/ML SYR 0.5 MG IVP (06:10)
[2024-05-14 07:45] LABS: Abs Immature Grans 0.05 10^3/uL (0.0-0.06); Absolute Basophil Count 0.06 10^3/uL (0.0-0.2); Absolute Eosinophil Count 0.23 10^3/uL (0.0-0.7); Absolute Lymphocyte Count 1.07 10^3/uL (1.2-3.4); Absolute Monocyte Count 1.32 10^3/uL (0.1-0.8); Absolute Neutrophil Count 2.39 10^3/uL (1.2-6.7); Basophils % 1.2 %; Eosinophils % 4.5 %; HGB 11.7 g/dL (11.2-15.7); Lymphocytes % 20.9 %; MCH 29.3 pg (27.0-33.0); MCHC 32.5 % (32.0-36.0); MCV 90 fL (80-95); Monocytes % 25.8 %; Neutrophils % 46.6 %; Platelet Count 219 10^3/uL (130-400); RBC 3.99 10^6/uL (3.93-5.22); RDW 14.2 % (11.7-14.6); RDW-SD 46.9 fL; WBC 5.12 10^3/uL (4.4-10.8)
[2024-05-14 07:47] LABS: Anion Gap 7.4 mmol/L (3-11); BUN 69 mg/dL (7-18); CO2 25.6 mmol/L (21.0-32.0); CREATININE 1.4 mg/dL (0.55-1.02); Calcium 8.9 mg/dL (8.5-10.1); Chloride 100 mmol/L (98-107); Estimated GFR 39.97 (mL/min/1.73m2); Glucose 155 mg/dL (74-106); Potassium 3.9 mmol/L (3.5-5.1); Sodium 133 mmol/L (136-145)
[2024-05-14 07:55] VITALS: BP 109/47; PULSE 82; RESP 16; TEMP 36.1; O2SAT 93
--- NOTE | 2024-05-14 08:52 | PDOC.CMIN ---
Date of service: 05/14/24 Time of Service: 08:52 Care Management Initial Assmt Initial Assessment Reason for Hospitalization: SBO, MEHUL Functional Status/Living Situation Patient Presentation: Susana was sitting in a recliner when CM met with her. She is here with a possible bowel obstruction with diarrhea and abdominal cramping. She has some limitations since her right knee replacement in March, but is otherwise independent at baseline. She is a retired tmd teacher assistant and lives in alone in [place] (son Max lives on the second floor.) Town of Residence: [place] Resides with: Alone and Child (Second Floor) Significant Other/Family: Local Natural Supports: Luis Tompkins, is very supportive Employment Status: Retired (Ui Engineer) Instrumental Activities of Daily Living (ADLs): Independent Medications Medication Management: No Issues/Barriers identified Physical Functioning/Mobility Assistive Device: Walker and Cane Advance Directives Advance Directives: Do you have an Advance Directive: N 04/19/24 16:10 AD On File at [facility]: N 04/19/24 16:10 Date Asked 05/13/24 05/13/24 17:17 AD Date Reviewed 05/13/24 05/13/24 17:17 COLST On File at [facility] COLST Date Scanned Code Status Resuscitation Status Full Code Portal Pt does not currently have a portal and education provided: Yes Insurance Coverage/Financial Issues Insurance: BC/BS [facility] Care Team Visit Care Team Role Provider Type Silke Xie APRN MD [facility] STAFF PHYSICIAN Rosamaria Maldonado Primary Care Provider ADV PRACTICE REGISTERED NURSE Kev Crockett MD Other Providers [facility] STAFF PHYSICIAN Kane Valverde MD Emergency Provider [facility] STAFF PHYSICIAN Kane Nguyen Admit Provider [facility] STAFF PHYSICIAN Attending Provider Discharge Potential Discharge Needs: PCP F/U Appt and Surgical F/U Appt Anticipated Barriers to Discharge: None Identified Patient/Family Education Needs: Review discharge instructions, discuss Ask Me Three Transportation: Private vehicle Plan: Anticipate, Susana will discharge home via private vehicle with family when medically ready. She will follow up with community providers and her discharge plan of care as directed. Susana does not have any [facility] services at this time and had a knee replacement in March (? PT eval). CM will follow and support discharge planning needs, if indicated. Social Determinants of Health Screening Social Determinants of Health last assessed: 05/14/24 Will the Patient Participate in the Screening?: Yes Do you worry about having a steady place to live?: no Problems where you live: no known problems In the past 12 months, have you had to go without electric, gas, oil or water in your home?: no Have you or anyone in your house had to go without enough food to eat?: no Has lack of transportation kept you from medical appointments or from doing things needed for daily living?: no Has anyone in your life made you feel unsafe or unsupported?: no How hard is it for you to pay for the very basics like food, housing, medical care, and heating? Would you say it is:: Not hard at all Do you want help finding or keeping work or a job?: I do not need or want help If for any reason you need help with day-to-day activities such as bathing, preparing meals, shopping, managing finances, etc., do you get the help you need?: I could use a little more help How often do you feel lonely or isolated from those around you?: Rarely Do you speak a language other than [place] at home?: Yes Does the patient want assistance with any of the above?: No Health Related Social Needs Health related social needs: problems with daily activities (Z73.9), feeling lonely/isolated (Z60.8) and education (Z55.6) PFSH All Active Problems (Updated 05/14/24 @ 13:49 by Sabiha Jewell MD) Incarcerated ventral hernia (Acute) SBO (small bowel obstruction) (Acute) Acute kidney injury (Acute) History of total right knee replacement (Acute 04/07/24) Degenerative joint disease of right knee (Chronic) Depo medrol injection: 10/06/23 Sebaceous cyst (Acute) Senile osteoporosis (Acute) Psoriasiform eczema (Acute) Hyperlipidemia (Chronic) Hypothyroidism (Chronic) Goiter (Chronic) Obesity (Chronic) Varicose veins (Chronic) Hypertension (Chronic) Diabetes mellitus (Chronic) Sleep apnea (Chronic) Status post total knee replacement (Acute 12/21/12) Bilateral pulmonary embolism (Acute 01/22/13) Medical History Adenomatous colon polyp Heart murmur Seasonal allergies Iron (Fe) deficiency anemia Osteopenia Osteoarthritis Stress incontinence Depression Dyspepsia Hypertension History of pulmonary embolus (PE) 2013 with Left TKA Hypercholesterolemia Hypothyroid Morbid obesity Diabetes mellitus DEWEY (obstructive sleep apnea) Surgical History Hx of wisdom tooth extraction History of left knee replacement History of colonoscopy (~01/16/15) Cholecystectomy Family History Mother Macular degeneration Atrial fibrillation Breast cancer Essential hypertension Father CHF (congestive heart failure) Hypertension Hyperlipidemia Other Heart disease Social History Smoking/Tobacco Use Status: Never Smoking risk assessment performed?: Yes Alcohol Intake: current Alcohol Intake frequency: holidays/special occasions only Alcohol type: beer and wine Drug use: Never Substance use type: does not use Details: alcohol: 5 weeks ago Housing: house Do you feel safe at home: Yes Do you feel safe in your relationship?: Yes
[2024-05-14] MEDS: Pantoprazole 40 MG VIAL IVP (09:34)
[2024-05-14] MEDS: Enoxaparin 100 MG/ML SYR SC ×2 (09:41→20:38)
[2024-05-14] MEDS: DEXTROSE 5%-LACTATED RINGERS 1,000 ML 100 ML IV ×2 (09:47→21:31)
--- NOTE | 2024-05-14 10:52 | W.PM.PROGNOT ---
Date of Service Date of service: 05/14/24 Time of Service: 10:52 Assessment and Plan Assessment and plan (1) SBO (small bowel obstruction): Status: Acute Assessment and plan: Sx consult ongoing : - ABD binder as per MD- attempted but unable to reduce hernia NGT to low continuous suction will be clamped 4 -hour residual if low d/c NGT as per surgery On going NPO except Rx Ongoing Compazine PRN Ongoing protonix IV Suppository trial (2) Acute kidney injury: Status: Acute Assessment and plan: Cr 1.9 baseline 0.9- improving at 1.4 most likely pre-renal 1:1 replacement considered but d/t last LVEF 52% in 12/2023 will increase IVF DLR to 125 cc/hr and cautiously monitor Serial BMP and mag (3) Hypothyroidism: Status: Chronic Assessment and plan: Continue home levothyroxine (4) Hypertension: Status: Chronic Assessment and plan: continue to hold lisinopril VS Q4 consider alternative Rx for HTN urgency (5) Diabetes mellitus: Status: Chronic Assessment and plan: Ongoing Gluc AC and HS with SSI coverage (6) Bilateral pulmonary embolism: Status: Acute Assessment and plan: On chronic Eliquis - now bridged on Lovenox Discussed with Dr. Nguyen Subjective Subjective Patient reports: no new complaints, pain is less, no flatus, no bowel movement and afebrile; denies tolerating liquids well (NPO with NGT to LIS ), tolerating a regular diet, voiding w/o difficulty, nausea, vomiting or shortness of breath Exam Narrative Exam Narrative: Constitutional The patient is without acute distress HENMT: Facial structures with normal appearance, NGT in place Neuro:alert and oriented X4 . No neurological focal deficit Chest:Chest is symmetrical and normal appearance Resp: Normal respiratory pattern, speaks in full sentences, unlabored breathing, clear lung bilaterally Cardio: regular rhythm, S1, S2, + murmur, bilateral radial and dorsalis pedis pulses are positive, palpable GI: Abdomen is less distended and less tympanic, soft and tender to epigastric and left areasLQs, bowel sounds diminshed to LLQ not heard otherwise : Negative Costovertebral angle tenderness, no bladder distension Back/spine/Pelvis: No back tenderness, normal alignment Integumentary: No skin lesions or rash to exposed skin Extremities: strength 5/5 to bilateral lower and upper extremities Psych: RASS 0, congruent mood and normal affect. Objective Last Vital Signs Temp 36.1 C L 05/14/24 07:55 Pulse 82 05/14/24 07:55 Resp 16 05/14/24 07:55 BP 109/47 L 05/14/24 07:55 Pulse Ox 93 05/14/24 07:55 Laboratory Results - last 24 hr 05/13/24 05/13/24 05/13/24 14:01 14:15 14:15 WBC 5.79 RBC 4.28 Hgb 12.3 Hct 37.6 MCV 88 MCH 28.7 MCHC 32.7 RDW 14.3 Plt Count 274 MPV 11.6 H Immature Gran % 0.7 Neutrophils % 55.9 Lymphocytes % 19.3 Monocytes % 21.9 Eosinophils % 1.0 Basophils % 1.2 Nucleated RBC % 0.0 Absolute Neutrophils 3.23 Absolute Lymphocytes 1.12 L Absolute Monocytes 1.27 H Absolute Eosinophils 0.06 Absolute Basophils 0.07 VBG pH 7.47 H VBG pCO2 35 L VBG pO2 37 VBG HCO3 25 VBG Total CO2 23 L VBG O2 Saturation 73 VBG Base Excess 2 VBG Lactate Sodium 130 L Potassium 3.9 Chloride 93 L Carbon Dioxide 24.5 Anion Gap 12.5 H BUN 71 H Creatinine 1.9 H Est GFR (CKD-EPI 2020) 27.71 Glucose 246 H Calcium 9.3 Magnesium Total Bilirubin 0.7 AST 17 ALT 35 Alkaline Phosphatase 144 H Troponin I 13 Cancelled Total Protein 7.1 Albumin 3.1 L Lipase 16 Urine Color Urine Clarity Urine pH Ur Specific [place] Urine Protein Urine Ketones Urine Blood Urine Nitrite Urine Bilirubin Urine Urobilinogen Ur Leukocyte Esterase Urine RBC Urine WBC Ur Epithelial Cells Urine Crystals Urine Bacteria Urine Casts Urine Mucus Urine Other Ur Culture Indicated? Urine Glucose COVID-19 Source SARS-CoV-2 (PCR) Influenza Type A (PCR) Influenza Type B (PCR) RSV (PCR) Add-On Test Request DONE 05/13/24 05/13/24 05/13/24 15:56 16:06 16:31 WBC RBC Hgb Hct MCV MCH MCHC RDW Plt Count MPV Immature Gran % Neutrophils % Lymphocytes % Monocytes % Eosinophils % Basophils % Nucleated RBC % Absolute Neutrophils Absolute Lymphocytes Absolute Monocytes Absolute Eosinophils Absolute Basophils VBG pH VBG pCO2 VBG pO2 VBG HCO3 VBG Total CO2 VBG O2 Saturation VBG Base Excess VBG Lactate 1.2 Sodium Potassium Chloride Carbon Dioxide Anion Gap BUN Creatinine Est GFR (CKD-EPI 2020) Glucose Calcium Magnesium 2.3 Total Bilirubin AST ALT Alkaline Phosphatase Troponin I 10 Total Protein Albumin Lipase Urine Color Urine Clarity Urine pH Ur Specific [place] Urine Protein Urine Ketones Urine Blood Urine Nitrite Urine Bilirubin Urine Urobilinogen Ur Leukocyte Esterase Urine RBC Urine WBC Ur Epithelial Cells Urine Crystals Urine Bacteria Urine Casts Urine Mucus Urine Other Ur Culture Indicated? Urine Glucose COVID-19 Source Nasopharynx SARS-CoV-2 (PCR) Negative Influenza Type A (PCR) Negative Influenza Type B (PCR) Negative RSV (PCR) Negative Add-On Test Request 05/13/24 05/14/24 17:07 07:14 WBC 5.12 RBC 3.99 Hgb 11.7 Hct 36.0 MCV 90 MCH 29.3 MCHC 32.5 RDW 14.2 Plt Count 219 MPV 12.0 H Immature Gran % 1.0 Neutrophils % 46.6 Lymphocytes % 20.9 Monocytes % 25.8 Eosinophils % 4.5 Basophils % 1.2 Nucleated RBC % 0.0 Absolute Neutrophils 2.39 Absolute Lymphocytes 1.07 L Absolute Monocytes 1.32 H Absolute Eosinophils 0.23 Absolute Basophils 0.06 VBG pH VBG pCO2 VBG pO2 VBG HCO3 VBG Total CO2 VBG O2 Saturation VBG Base Excess VBG Lactate Sodium 133 L Potassium 3.9 Chloride 100 Carbon Dioxide 25.6 Anion Gap 7.4 BUN 69 H Creatinine 1.4 H Est GFR (CKD-EPI 2020) 39.97 Glucose 155 H Calcium 8.9 Magnesium Total Bilirubin AST ALT Alkaline Phosphatase Troponin I Total Protein Albumin Lipase Urine Color Yellow Urine Clarity Sl Cloudy Urine pH 5.0 Ur Specific [place] 1.025 Urine Protein 30 H Urine Ketones Trace H Urine Blood Negative Urine Nitrite Negative Urine Bilirubin Moderate H Urine Urobilinogen 0.2 Ur Leukocyte Esterase Negative Urine RBC 0-2 Urine WBC 0-2 Ur Epithelial Cells Moderate Urine Crystals Negative Urine Bacteria Moderate Urine Casts 0-2 Hyaline Urine Mucus Negative Urine Other Few Transitional Ur Culture Indicated? No/Sq. Contamination Urine Glucose Negative COVID-19 Source SARS-CoV-2 (PCR) Influenza Type A (PCR) Influenza Type B (PCR) RSV (PCR) Add-On Test Request Time Spent with Patient Time Spent with Patient: >50 minutes Time was spent: preparing to see the patient(eg.review tests), obtaining and/or reviewing separately otained hiistory, ordering medications,tests, procedures, referring, communicating with other health lpn care manager, indepentently interpreting results, counseling the patient and care coordination
[2024-05-14] MEDS: Bisacodyl 10 MG SUPP PR (11:38)
[2024-05-14] MEDS: Insulin Aspart 300 UNITS/3 ML PEN SC ×2 (12:32→18:41)
[2024-05-14 13:00] VITALS: BP 115/56; PULSE 82; RESP 16; TEMP 36.3; O2SAT 93
--- NOTE | 2024-05-14 13:29 | PGE_ITS ---
Date of Service Date of service: 05/14/24 Time of Service: 13:29 Assessment and Plan Assessment and plan (1) SBO (small bowel obstruction): Status: Acute Assessment and plan: Patient had obstruction of small bowel in her hernia or she may have had severe viral gastroenteritis causing her symptoms as evidenced by the associated constitutional symptoms that she experienced at the onset. Either way, she has had diarrhea yesterday and some small amounts of flatus. I think it is reasonable to clamp her NG tube now, check a 4-hour residual, remove NG tube if the residual is low. Continue to observe overnight and consider advancing diet if she continues to have stool and flatus output. I will continue to follow with you daily. (2) Incarcerated ventral hernia: Status: Acute Assessment and plan: The cause of the hernia is a laparoscopic incision for gallbladder surgery years ago. Because of her body habitus she is at high risk for complications of the hernia considering that it contains small intestine, so in addition to being aware of its presence she needs to also be considering elective surgery, repair with mesh, to prevent complications in the future. Weight loss would be very helpful to this. She is already on a GLP-1 analog. Due to her comorbidities she would need to see a surgical opinion at [facility] (Former[facility]). Subjective Subjective Interval history since last seen: This patient is hospital day #1 with NG tube for possible bowel obstruction in the ventral hernia. The patient states her symptoms actually started 6 days ago when she went out to eat on a Friday night and while she was sleeping she awoke with severe abdominal pain, nausea and vomiting. She indicates pain in the upper abdomen. There was associated headache, body aches, extreme fatigue and she slept most of the next day and night. She continued to then have difficulty handling foods with nausea, became increasingly weak, could not ambulate with her walker. She did have a CT scan that demonstrated small intestine in the hernia sac indicating that the hernia was the source of obstruction. However in the emergency room the hernia was manually reduced. The patient reports diarrhea type stools yesterday and having occasional flatus. She continues to feel very weak and unwell. Exam Narrative Exam Narrative: Morbidly obese woman lying supine, alert and oriented and conversant. There is a friend who has joined her at the bedside who has been helping her through this illness. Const General: cooperative, in distress (NG tube in place) and anxious GI Inspection: large pannus, obesity and visible herniation (Umbilical area, not tensely distended but not easily reduced either. ) Palpation: soft Auscultation: normal bowel sounds Neuro General: patient alert, patient awake and patient oriented x3 Cognition: normal cognition Speech: speech normal Objective Last Vital Signs Temp 36.3 C L 05/14/24 13:00 Pulse 82 05/14/24 13:00 Resp 16 05/14/24 13:00 BP 115/56 L 05/14/24 13:00 Pulse Ox 93 05/14/24 13:00 Laboratory Results - last 24 hr 05/13/24 05/13/24 05/13/24 14:01 14:15 14:15 WBC 5.79 RBC 4.28 Hgb 12.3 Hct 37.6 MCV 88 MCH 28.7 MCHC 32.7 RDW 14.3 Plt Count 274 MPV 11.6 H Immature Gran % 0.7 Neutrophils % 55.9 Lymphocytes % 19.3 Monocytes % 21.9 Eosinophils % 1.0 Basophils % 1.2 Nucleated RBC % 0.0 Absolute Neutrophils 3.23 Absolute Lymphocytes 1.12 L Absolute Monocytes 1.27 H Absolute Eosinophils 0.06 Absolute Basophils 0.07 VBG pH 7.47 H VBG pCO2 35 L VBG pO2 37 VBG HCO3 25 VBG Total CO2 23 L VBG O2 Saturation 73 VBG Base Excess 2 VBG Lactate Sodium 130 L Potassium 3.9 Chloride 93 L Carbon Dioxide 24.5 Anion Gap 12.5 H BUN 71 H Creatinine 1.9 H Est GFR (CKD-EPI 2020) 27.71 Glucose 246 H Calcium 9.3 Magnesium Total Bilirubin 0.7 AST 17 ALT 35 Alkaline Phosphatase 144 H Troponin I 13 Cancelled Total Protein 7.1 Albumin 3.1 L Lipase 16 Urine Color Urine Clarity Urine pH Ur Specific [place] Urine Protein Urine Ketones Urine Blood Urine Nitrite Urine Bilirubin Urine Urobilinogen Ur Leukocyte Esterase Urine RBC Urine WBC Ur Epithelial Cells Urine Crystals Urine Bacteria Urine Casts Urine Mucus Urine Other Ur Culture Indicated? Urine Glucose COVID-19 Source SARS-CoV-2 (PCR) Influenza Type A (PCR) Influenza Type B (PCR) RSV (PCR) Add-On Test Request DONE 05/13/24 05/13/24 05/13/24 15:56 16:06 16:31 WBC RBC Hgb Hct MCV MCH MCHC RDW Plt Count MPV Immature Gran % Neutrophils % Lymphocytes % Monocytes % Eosinophils % Basophils % Nucleated RBC % Absolute Neutrophils Absolute Lymphocytes Absolute Monocytes Absolute Eosinophils Absolute Basophils VBG pH VBG pCO2 VBG pO2 VBG HCO3 VBG Total CO2 VBG O2 Saturation VBG Base Excess VBG Lactate 1.2 Sodium Potassium Chloride Carbon Dioxide Anion Gap BUN Creatinine Est GFR (CKD-EPI 2020) Glucose Calcium Magnesium 2.3 Total Bilirubin AST ALT Alkaline Phosphatase Troponin I 10 Total Protein Albumin Lipase Urine Color Urine Clarity Urine pH Ur Specific [place] Urine Protein Urine Ketones Urine Blood Urine Nitrite Urine Bilirubin Urine Urobilinogen Ur Leukocyte Esterase Urine RBC Urine WBC Ur Epithelial Cells Urine Crystals Urine Bacteria Urine Casts Urine Mucus Urine Other Ur Culture Indicated? Urine Glucose COVID-19 Source Nasopharynx SARS-CoV-2 (PCR) Negative Influenza Type A (PCR) Negative Influenza Type B (PCR) Negative RSV (PCR) Negative Add-On Test Request 05/13/24 05/14/24 17:07 07:14 WBC 5.12 RBC 3.99 Hgb 11.7 Hct 36.0 MCV 90 MCH 29.3 MCHC 32.5 RDW 14.2 Plt Count 219 MPV 12.0 H Immature Gran % 1.0 Neutrophils % 46.6 Lymphocytes % 20.9 Monocytes % 25.8 Eosinophils % 4.5 Basophils % 1.2 Nucleated RBC % 0.0 Absolute Neutrophils 2.39 Absolute Lymphocytes 1.07 L Absolute Monocytes 1.32 H Absolute Eosinophils 0.23 Absolute Basophils 0.06 VBG pH VBG pCO2 VBG pO2 VBG HCO3 VBG Total CO2 VBG O2 Saturation VBG Base Excess VBG Lactate Sodium 133 L Potassium 3.9 Chloride 100 Carbon Dioxide 25.6 Anion Gap 7.4 BUN 69 H Creatinine 1.4 H Est GFR (CKD-EPI 2020) 39.97 Glucose 155 H Calcium 8.9 Magnesium Total Bilirubin AST ALT Alkaline Phosphatase Troponin I Total Protein Albumin Lipase Urine Color Yellow Urine Clarity Sl Cloudy Urine pH 5.0 Ur Specific [place] 1.025 Urine Protein 30 H Urine Ketones Trace H Urine Blood Negative Urine Nitrite Negative Urine Bilirubin Moderate H Urine Urobilinogen 0.2 Ur Leukocyte Esterase Negative Urine RBC 0-2 Urine WBC 0-2 Ur Epithelial Cells Moderate Urine Crystals Negative Urine Bacteria Moderate Urine Casts 0-2 Hyaline Urine Mucus Negative Urine Other Few Transitional Ur Culture Indicated? No/Sq. Contamination Urine Glucose Negative COVID-19 Source SARS-CoV-2 (PCR) Influenza Type A (PCR) Influenza Type B (PCR) RSV (PCR) Add-On Test Request Time Spent with Patient Time Spent with Patient: 35-49 minutes Time was spent: preparing to see the patient(eg.review tests), obtaining and/or reviewing separately otained hiistory, referring, communicating with other health medicare sales executive, indepentently interpreting results and counseling the patient
[2024-05-14] MEDS: Benzocaine/Menthol LOZG 15/BOX 1 EACH SUC ×2 (14:19→18:20)
[2024-05-14] MEDS: Normal Saline Flush 10 ML SYR IVP ×2 (16:06→19:36)
[2024-05-14 16:11] VITALS: BP 118/44; PULSE 83; RESP 13; TEMP 36.1; O2SAT 92
[2024-05-14 17:38] LABS: Anion Gap 9.3 mmol/L (3-11); BUN 50 mg/dL (7-18); CO2 28.7 mmol/L (21.0-32.0); CREATININE 1.1 mg/dL (0.55-1.02); Chloride 101 mmol/L (98-107); Estimated GFR 53.39 (mL/min/1.73m2); Glucose 172 mg/dL (74-106); Magnesium 2.2 mg/dL (1.8-2.4); Potassium 3.6 mmol/L (3.5-5.1); Sodium 139 mmol/L (136-145)
[2024-05-14 20:25] VITALS: BP 125/54; PULSE 86; RESP 18; TEMP 37.4; O2SAT 91
[2024-05-14] MEDS: Insulin Glargine 300 UNITS/3 ML PEN SC (20:39)
[2024-05-14] MEDS: Simvastatin 40 MG TAB PO (20:39)
[2024-05-14 23:59] VITALS: BP 154/71; PULSE 86; RESP 18; TEMP 37.1; O2SAT 90
[2024-05-15] MEDS: Insulin Aspart 300 UNITS/3 ML PEN SC ×4 (00:35→22:11)
[2024-05-15] MEDS: ACETAMINOPHEN 1,000 MG/100 ML BAG 400 MG IVPB ×3 (01:44→18:30)
[2024-05-15 04:25] VITALS: BP 115/75; PULSE 76; RESP 18; TEMP 36.6
[2024-05-15] MEDS: Levothyroxine 175 MCG TAB PO (05:46)
[2024-05-15 07:02] LABS: Abs Immature Grans 0.13 10^3/uL (0.0-0.06); Absolute Basophil Count 0.06 10^3/uL (0.0-0.2); Absolute Eosinophil Count 0.12 10^3/uL (0.0-0.7); Absolute Lymphocyte Count 0.92 10^3/uL (1.2-3.4); Absolute Monocyte Count 1.06 10^3/uL (0.1-0.8); Absolute Neutrophil Count 2.68 10^3/uL (1.2-6.7); Basophils % 1.2 %; Eosinophils % 2.4 %; HCT 34.6 % (36.0-46.0); Immature Grans % 2.6 %; Lymphocytes % 18.5 %; MCH 28.8 pg (27.0-33.0); MCHC 31.8 % (32.0-36.0); MCV 91 fL (80-95); MPV 11.6 fL (8.0-11.0); Monocytes % 21.3 %; Platelet Count 230 10^3/uL (130-400); RBC 3.82 10^6/uL (3.93-5.22); RDW 13.9 % (11.7-14.6); RDW-SD 46.4 fL; WBC 4.97 10^3/uL (4.4-10.8)
[2024-05-15 07:13] LABS: Anion Gap 9.6 mmol/L (3-11); BUN 33 mg/dL (7-18); CO2 30.4 mmol/L (21.0-32.0); CREATININE 1.1 mg/dL (0.55-1.02); Calcium 9.3 mg/dL (8.5-10.1); Chloride 102 mmol/L (98-107); Estimated GFR 53.39 (mL/min/1.73m2); Glucose 173 mg/dL (74-106); Potassium 3.5 mmol/L (3.5-5.1); Sodium 142 mmol/L (136-145)
[2024-05-15] MEDS: Pantoprazole 40 MG VIAL IVP (08:24)
[2024-05-15] MEDS: Normal Saline Flush 10 ML SYR IVP ×2 (08:25→20:27)
[2024-05-15 08:26] VITALS: BP 124/63; PULSE 89; RESP 20; TEMP 36.8; O2SAT 95
[2024-05-15] MEDS: Enoxaparin 100 MG/ML SYR SC ×2 (08:32→20:27)
[2024-05-15] MEDS: HYDROmorphone 2 MG/ML SYR 0.5 MG IVP (08:33)
[2024-05-15] MEDS: DEXTROSE 5%-LACTATED RINGERS 1,000 ML 100 ML IV ×2 (08:35→20:44)
--- NOTE | 2024-05-15 10:40 | W.PM.PROGNOT ---
Date of Service Date of service: 05/15/24 Time of Service: 10:40 Assessment and Plan Assessment and plan (1) Incarcerated ventral hernia: Status: Acute Assessment and plan: There is still no evidence right now that her incarcerated hernia is obstructed. Now she has diarrhea but I also think it is appropriate to start clear liquids since she has not had nausea or vomiting with the NG tube out. It seems that her abdominal pain is crampy in nature and may be related to the diarrhea. Taking a clear liquid diet may exacerbate the cramps via the gastrocolic reflex, but hopefully she will not have recurrent nausea and vomiting. Subjective Subjective Interval history since last seen: Patient states that she had a bad night and generally does not feel well still. She is having intermittent abdominal pain in the upper abdomen which seems to resolved sometimes and a cramp and passing flatus. She is taking Tylenol for this. Now this morning she had more diarrhea. She still feels very fatigued but now she feels it was due to not sleeping. She has not had nausea or vomiting since the NG tube was removed. Exam Narrative Exam Narrative: Patient is awake and appears to be in some low-grade distress. Perhaps it is low affect as well. She is conversant GI Auscultation: normal bowel sounds Other: Morbidly obese abdomen has upper abdominal fullness with tenderness but it is soft. The hernia is very full feeling, nonreducible with just moderate attempt. Nontender with no overlying erythema. Psych Affect: blunted Thought Process: normal Thought Content: normal Insight: insight good Judgment: judgment good Objective Last Vital Signs Temp 36.8 C 05/15/24 08:26 Pulse 89 05/15/24 08:26 Resp 20 05/15/24 08:26 BP 124/63 05/15/24 08:26 Pulse Ox 95 05/15/24 08:26 Laboratory Results - last 24 hr 05/14/24 05/15/24 17:05 06:35 WBC 4.97 RBC 3.82 L Hgb 11.0 L Hct 34.6 L MCV 91 MCH 28.8 MCHC 31.8 L RDW 13.9 Plt Count 230 MPV 11.6 H Immature Gran % 2.6 Neutrophils % 54.0 Lymphocytes % 18.5 Monocytes % 21.3 Eosinophils % 2.4 Basophils % 1.2 Nucleated RBC % 0.0 Absolute Neutrophils 2.68 Absolute Lymphocytes 0.92 L Absolute Monocytes 1.06 H Absolute Eosinophils 0.12 Absolute Basophils 0.06 Sodium 139 142 Potassium 3.6 3.5 Chloride 101 102 Carbon Dioxide 28.7 30.4 Anion Gap 9.3 9.6 BUN 50 H 33 H Creatinine 1.1 H 1.1 H Est GFR (CKD-EPI 2020) 53.39 53.39 Glucose 172 H 173 H Calcium 9.0 9.3 Magnesium 2.2 Time Spent with Patient Time Spent with Patient: <25 minutes Time was spent: preparing to see the patient(eg.review tests), obtaining and/or reviewing separately otained hiistory and counseling the patient
[2024-05-15 11:54] VITALS: BP 125/73; PULSE 83; RESP 20; TEMP 36.6; O2SAT 93
--- NOTE | 2024-05-15 13:25 | PHA.REVIEW2 ---
Pharmacy Admission Review Admission Clinical Review Admission Pharmacy Review: Incarcerated ventral hernia (Acute) SBO (small bowel obstruction) (Acute) Acute kidney injury (Acute) Bilateral pulmonary embolism (Acute 01/22/13) nickel Allergy (Intermediate, Verified 05/13/24 13:17) Contraindicated sweeteners Allergy (Mild, Uncoded 05/13/24 13:17) Skin Rash Resuscitation Status Full Code Height 5 ft 5 in Weight 135.624 kg Comments Comments/Follow Ups: Watch for addition of any QTc prolonging medications Pharmacy Admission Review Renal Dosing Renal Dosing: BUN 33 mg/dL (7-18) H 05/15/24 06:35 Creatinine 1.1 mg/dL (0.55-1.02) H 05/15/24 06:35 Medications needing adjustments: Reviewed (CrCl 64.55 mL/min, BUN decreased from 50) List of meds needing interventions: Current medications are okay Anticoagulation Anticoagulation: Hgb 11.0 g/dL (11.2-15.7) L 05/15/24 06:35 Hct 34.6 % (36.0-46.0) L 05/15/24 06:35 Plt Count 230 10^3/uL (130-400) 05/15/24 06:35 Creatinine 1.1 mg/dL (0.55-1.02) H 05/15/24 06:35 Therapeutic Anticoagulation: Reviewed (bridging, Hgb decreased from 11.7) Medications: Enoxaparin (100mg q12h - 0.73mg/kg due to BMI ~ 50) Opiate Usage Evaluate Pain Scale/Pains Meds: Reviewed (hydromorphone 0.5mg IVP q6h PRN - 0.5mg / 24 hours) Scheduled Bowel Reg ordered if on Opiates?: No (PRN bisacodyl suppository) Relevant Labs Relevant Labs: Sodium 142 mmol/L (136-145) 05/15/24 06:35 Potassium 3.5 mmol/L (3.5-5.1) 05/15/24 06:35 Chloride 102 mmol/L (98-107) 05/15/24 06:35 Magnesium 2.2 mg/dL (1.8-2.4) 05/14/24 17:05 Electrolytes, C-Reactive P, ESR: Reviewed DM Control DM Control: Glucose 173 mg/dL (74-106) H 05/15/24 06:35 Finger Stick Blood Glucose 159 1152 Finger Stick Blood Glucose 159 1152 Finger Stick Blood Glucose 159 0613 Finger Stick Blood Glucose 159 0558 Finger Stick Blood Glucose 159 0558 DM Control: Reviewed Insulin Dosing, Diabetic Medication: Has order for SS insulin and glargine 5 units at bedtime Cardiac Review Cardiac Review: Troponin I 10 ng/L (<or=51) 05/13/24 15:56 BP, HR, EF%: Reviewed (BP and HR WNL) QTc Review QTc: Reviewed (514 from 05/13/24) List meds needing interventions: No QTc prolonging meds IV to PO Switch IV Medications: Reviewed (APAP, hydromorphone, pantoprazole and prochlorperazine - NPO) Home Meds Home Med List reviewed: Reviewed Relevent Home Meds Not ordered & why?: lisinopril (on hold per H+P), amoxicillin (for dental procedures), Eliquis (has order for Lovenox), vitamin C, aspirin, vitamin B, celecoxib (PRN), vitamin D, docusate (PRN), gabapentin, glipizide (has order for SS insulin), magnesium, metformin (has order for SS insulin), multivitamin, mupirocin ointment and Ozempic (has order for SS insulin) Current Meds Current Medication Order Review: Reviewed Comments Comments/Follow Ups: Watch for addition of any QTc prolonging medications
--- NOTE | 2024-05-15 13:54 | PT.INIE ---
PT Notes Visit Reasons: SBO,MEHUL Inpatient Physical Therapy Evaluation Date: [05/15/2024] Referring Doctor: [Silke Xie] PT Orders: PT CONSULT: [Status post Ortho surgery right TKA 04/07/2024] Precautions: [Standard, fall risk] Patient Profile/Admitting Diagnosis: []Susana 73 years old female patient w a PMHx significant for T2DM, Hypertension, hypothyroidism, recent R TKR on 03/2024, PE on Eliquis, obesity, abdominal hernia presented to the ED for evaluation of nausea, vomiting and abdominal pain. She was admitted to [facility] with SBO and AKD, she is also s/p right TKA 04/07/2024. She reports significant abdominal pain, with suspect of SBO. PMHX: []All Active Problems (Updated 05/13/24 @ 16:16 by Kane Valverde MD) SBO (small bowel obstruction) (Acute) Acute kidney injury (Acute) History of total right knee replacement (Acute 04/07/24) Degenerative joint disease of right knee (Chronic) Depo medrol injection: 10/06/23Sebaceous cyst (Acute) Senile osteoporosis (Acute) Psoriasiform eczema (Acute) Hyperlipidemia (Chronic) Hypothyroidism (Chronic) Goiter (Chronic) Obesity (Chronic) Varicose veins (Chronic) Hypertension (Chronic) Diabetes mellitus (Chronic) Sleep apnea (Chronic) Status post total knee replacement (Acute 12/21/12) Bilateral pulmonary embolism (Acute 01/22/13) Medical History Adenomatous colon polyp Heart murmur Seasonal allergies Iron (Fe) deficiency anemia Osteopenia Osteoarthritis Stress incontinence Depression Dyspepsia Hypertension History of pulmonary embolus (PE) 2012 with Left TKAHypercholesterolemia Hypothyroid Morbid obesity Diabetes mellitus DEWEY (obstructive sleep apnea) Surgical History Hx of wisdom tooth extraction History of left knee replacement History of colonoscopy (~01/16/15) Cholecystectomy Social History/Home Situation: Patient essentially lives at home with her son living the level above her. She lives on single floor with 2 small steps to enter. Preadmission before she started having abdominal pain she was able to manage independently had started outpatient physical therapy for her recent TKA right. She has been unable to manage her rehab visits since 05/07/2024. Current Functional Limitations: Ambulating with FWW, patient expresses it takes a lot of energy for self-care Equipment Owned/DME: FWW Subjective: Objective: General Observation: Patient is sitting in recliner expresses she is quite fatigued and not expressing much interest in doing too much activity due to this fatigue and abdominal pain Mental Status: AandO x 4, she does express that she wants to make sure her knee is taking care of while she is recovering in the hospital Pain: Patient has mild pain medial lateral right knee but more of her current complaint is of cramping in her abdomen Vital Signs: Monitored by nursing staff ROM: Right Upper Extremity: WFL Left Upper Extremity: WFL Right Lower Extremity: 5?110 hold right LE in external rotation when supine, decreased patella mobility superior inferior Left Lower Extremity: WFL Strength: Right Upper Extremity: WFL Left Upper Extremity: WFL Right Lower Extremity: Quad 3+ ham 3+ gastroc 2 hip flexion 3 Left Lower Extremity: WFL Sensation: Denies distal symptoms Bed Mobility/Transfers: Sit to stand to RW CTG Stand to sit RW to bed CTG Sit to supine independent Gait: Ambulates with FWW, CTG due to fatigue limit distance to 15 feet, short stride length, VC for exaggerated stride which we will hold on today due to abdominal pain. Balance: Static Sitting: Good Dynamic Sitting: Good Static Standing: Fair Dynamic Standing: Poor unable to stand on single leg Special Tests: Mobility Limitations Standardized Measure [facility] AM-PAC 6 clicks Basic Mobility Inpatient Short Form: Raw Score: 16 standardized Score: [] CMS Score:54.16 Informed Consent/Education: Patient instructed in purpose of PT consult and plan of care. Assessment: Patient is a 73year old female referred to physical therapy services with the diagnosis of SBO(small bowel obstruction), fatigue and abdominal pain, s/p right TKA 04/07/2024. Patient presents with clinical signs and symptoms consistent with fatigue and abdominal pain, S/P right TKA 04/07/2024, as demonstrated by the following impairment level findings: Decreased energy, decreased endurance, decreased strength of LE, decreased ROM primarily right knee extension, decreased patella mobility, limited ambulatory status, increased difficulty with transfers . Impairments are contributing to the following functional limitations: AMPAC score. Patient is assessed as a Low 04759 complexity based on the following: History: As outlined Examination: As above Presentation: Evolving Decision Making: Low Goals: Goals X1 week 1. Supine-Sit independent 2. Sit-Supine independent 3. Sit-Stand independent 4. Stand-Sit independent 5. Bed-Chair independent 6. Chair-Bed independent 7. Gait ambulate with least AD FWW possibly progressed to cane independent with good gait mechanics 8. Stairs able to climb 2-3 stairs with SBA 9. Independent with home exercise program 10. Balance good Plan of Care/Treatment Plan: 1-2x/day, 7 days/week x 1 week. Plan of care has been reviewed with the ASSOCIATE DIRECTOR OF NURSING providing the service under Physical Therapy direction. Initiate Physical Therapy intervention for strengthening, bed mobility, transfers, gait, stairs, balance training, use of assistive device. Therapeutic Activities - (85992 x[1]):8' instruction in dynamic activities with one on one patient contact by the provider to improve functional performance?as follows: ?pre gait activity knee extension x10, ankle pumps x 10, supine quad sets x 10, supine hip IR x 5 with quad set Ambulation with FWW x 15 feet with CTG patient unable to make exaggerated steps due to abdominal pain, transfers patient will benefit from sit to stand repeatedly working on equal leg strength and would be more able to work on this when abdominal pain decreases. Manual therapy:?5'? ([id number]]) Hands-on techniques to increase joint range of motion reduce or eliminate soft tissue swelling, inflammation, or restriction facilitate relaxation and improve contractile and non-contractile tissue extensibility Treatment:patella mobilization, passive knee flexion and extension, STM peripatella DISCHARGE RECOMMENDATIONS: [] Home with outpatient PT, Home with no services as long as able to make progress towards baseline status as medical status improves VS Home with services PT, if unable to advance to receive outpatient PT TREATMENT CODE/TIME:28789, [id number] 2:10-2:30 20'
[2024-05-15 15:23] VITALS: BP 147/71; PULSE 80; RESP 20; TEMP 36.4; O2SAT 90
--- NOTE | 2024-05-15 17:03 | W.PM.PROGNOT ---
Date of Service Date of service: 05/15/24 Time of Service: 17:03 Assessment and Plan Assessment and plan (1) SBO (small bowel obstruction): Status: Acute Assessment and plan: Sx consult ongoing : - ABD binder as per MD- attempted but unable to reduce hernia -Non-reducible as per Sx note today Discontinued NGT earlier Tolerating clears - advance to full liquids Continue Compazine PRN continue protonix IV (2) Acute kidney injury: Status: Acute Assessment and plan: Cr 1.1 from 1.4 - baseline 0.9- improving at 1.4 most likely pre-renal LVEF 52% in 12/2023 IVF DLR to 100 cc/hr and cautiously monitor AM BMP (3) Hypothyroidism: Status: Chronic Assessment and plan: On home dose levothyroxine (4) Hypertension: Status: Chronic Assessment and plan: Ongoing hold on lisinopril - pending AM labs VS Q4 consider alternative Rx for HTN urgency (5) Diabetes mellitus: Status: Chronic Assessment and plan: Continue Gluc AC a& HS with SSI coverage (6) Bilateral pulmonary embolism: Status: Acute Assessment and plan: On chronic Eliquis - now bridged with Lovenox Resume Eliquis in AM IF oral intake tolerated Discussed with Dr. Nguyen Subjective Subjective Patient reports: no new complaints, pain is less, tolerating liquids well, voiding w/o difficulty, no flatus, bowel movement, diarrhea, nausea, afebrile and other (Appears better but denies feeling better); denies tolerating a regular diet, blood in stool, vomiting or shortness of breath Exam Narrative Exam Narrative: Constitutional The patient is without acute distress HENMT: Facial structures with normal appearance Neuro:alert and oriented X4 . No neurological focal deficit Resp: Unlabored breathing, clear lung bilaterally Cardio: regular rhythm, S1, S2, + murmur GI: Abdomen is large non-tympanic, soft and non-tender just feeling of pressure to LLQ,umbilical hernia in brittany-umbilical area, bowel sounds are present : Negative Costovertebral angle tenderness Back/spine/Pelvis: No back tenderness, normal alignment Integumentary: No skin lesions or rash to exposed skin Extremities: strength 5/5 to bilateral lower and upper extremities Psych: RASS 0, depressed mood and flat affect. Objective Last Vital Signs Temp 36.4 C L 05/15/24 15:23 Pulse 80 03/29/25 15:23 Resp 20 05/15/24 15:23 BP 147/71 H 05/15/24 15:23 Pulse Ox 90 L 05/15/24 15:23 Laboratory Results - last 24 hr 05/14/24 05/15/24 17:05 06:35 WBC 4.97 RBC 3.82 L Hgb 11.0 L Hct 34.6 L MCV 91 MCH 28.8 MCHC 31.8 L RDW 13.9 Plt Count 230 MPV 11.6 H Immature Gran % 2.6 Neutrophils % 54.0 Lymphocytes % 18.5 Monocytes % 21.3 Eosinophils % 2.4 Basophils % 1.2 Nucleated RBC % 0.0 Absolute Neutrophils 2.68 Absolute Lymphocytes 0.92 L Absolute Monocytes 1.06 H Absolute Eosinophils 0.12 Absolute Basophils 0.06 Sodium 139 142 Potassium 3.6 3.5 Chloride 101 102 Carbon Dioxide 28.7 30.4 Anion Gap 9.3 9.6 BUN 50 H 33 H Creatinine 1.1 H 1.1 H Est GFR (CKD-EPI 2020) 53.39 53.39 Glucose 172 H 173 H Calcium 9.0 9.3 Magnesium 2.2 Time Spent with Patient Time Spent with Patient: >50 minutes Time was spent: preparing to see the patient(eg.review tests), obtaining and/or reviewing separately otained hiistory, ordering medications,tests, procedures, referring, communicating with other health career development manager, indepentently interpreting results, counseling the patient and care coordination
[2024-05-15 19:00] VITALS: BP 156/77; PULSE 94; RESP 19; TEMP 36.5; O2SAT 94
[2024-05-15] MEDS: Simvastatin 40 MG TAB PO (20:27)
[2024-05-15] MEDS: Insulin Glargine 300 UNITS/3 ML PEN SC (20:34)
[2024-05-15 23:18] VITALS: BP 150/80; PULSE 82; RESP 19; TEMP 36.5; O2SAT 95
[2024-05-16] MEDS: ACETAMINOPHEN 1,000 MG/100 ML BAG 400 MG IVPB ×2 (01:40→09:58)
[2024-05-16 05:34] LABS: Anion Gap 6.9 mmol/L (3-11); BUN 15 mg/dL (7-18); CO2 29.1 mmol/L (21.0-32.0); CREATININE 0.8 mg/dL (0.55-1.02); Calcium 8.8 mg/dL (8.5-10.1); Chloride 106 mmol/L (98-107); Estimated GFR 78.24 (mL/min/1.73m2); Glucose 132 mg/dL (74-106); Potassium 3.5 mmol/L (3.5-5.1); Sodium 142 mmol/L (136-145)
[2024-05-16 05:49] LABS: Hemoglobin A1C 7.9 % (<5.7)
[2024-05-16] MEDS: Levothyroxine 175 MCG TAB PO (05:57)
[2024-05-16 07:32] VITALS: BP 147/61; PULSE 84; RESP 20; TEMP 36.6; O2SAT 96
--- NOTE | 2024-05-16 09:34 | W.PM.PROGNOT ---
Date of Service Date of service: 05/16/24 Time of Service: 09:34 Objective Last Vital Signs Temp 36.6 C 05/16/24 07:32 Pulse 84 05/16/24 07:32 Resp 20 05/16/24 07:32 BP 147/61 H 05/16/24 07:32 Pulse Ox 96 05/16/24 07:32 Laboratory Results - last 24 hr 05/16/24 04:27 Sodium 142 Potassium 3.5 Chloride 106 Carbon Dioxide 29.1 Anion Gap 6.9 BUN 15 Creatinine 0.8 Est GFR (CKD-EPI 2020) 78.24 Glucose 132 H Hemoglobin A1c 7.9 H Calcium 8.8
--- NOTE | 2024-05-16 09:54 | W.PM.PROGNOT ---
Date of Service Date of service: 05/16/24 Time of Service: 09:55 Assessment and Plan Assessment and plan (1) Incarcerated ventral hernia: Status: Acute Assessment and plan: Ill patient with fatigue, diarrhea, abdominal pain which is crampy in nature. Tolerating clear liquids without nausea and vomiting but has early satiety. Perhaps trying oral dietary supplements such as Ensure which might be more palatable than the full liquid diet in addition to just clear liquids would help her to take a little more. I do not suspect mechanical bowel obstruction at this time Subjective Subjective Interval history since last seen: Patient took in 1 L p.o. since her clear liquid diet was started and states that small amounts make her feel full and that she regurgitated a very small amount yesterday evening but otherwise has not had nausea and vomiting. Her main complaint is severe fatigue. She continues to have intermittent crampy abdominal pain which she describes as severe. She is aware of passing flatus, does not associated her cramps necessarily with passing diarrhea but notes that she had diarrhea in her sleep. The patient is extremely discouraged today, expresses concern that she cannot even sit up in bed without assistance and that it required assistance of 2 to get her from bed to chair. Exam Narrative Exam Narrative: Patient is sitting up, very flat affect GI Other: Abdominal exam remains unchanged, she has an obese abdomen which is soft to palpation and diffusely tender. Her umbilical hernia is chronically incarcerated. Psych Affect: sad and blunted Insight: insight good Objective Last Vital Signs Temp 36.6 C 05/16/24 07:32 Pulse 84 05/16/24 07:32 Resp 20 05/16/24 07:32 BP 147/61 H 05/16/24 07:32 Pulse Ox 96 05/16/24 07:32 Laboratory Results - last 24 hr 05/16/24 04:27 Sodium 142 Potassium 3.5 Chloride 106 Carbon Dioxide 29.1 Anion Gap 6.9 BUN 15 Creatinine 0.8 Est GFR (CKD-EPI 2020) 78.24 Glucose 132 H Hemoglobin A1c 7.9 H Calcium 8.8 Time Spent with Patient Time Spent with Patient: 25-34 minutes Time was spent: preparing to see the patient(eg.review tests), obtaining and/or reviewing separately otained hiistory and counseling the patient
[2024-05-16] MEDS: Enoxaparin 100 MG/ML SYR SC (09:57)
[2024-05-16] MEDS: Normal Saline Flush 10 ML SYR IVP (09:58)
[2024-05-16] MEDS: Pantoprazole 40 MG VIAL IVP (09:58)
--- NOTE | 2024-05-16 11:27 | DSE_ITS ---
Date of service: 05/16/24 Time of Service: 11:28 DS: Diagnosis Discharge Diagnosis (1) Incarcerated ventral hernia: Status: Acute Discharge Plan Disposition Patient Disposition: Home W/Home Health Services Condition: Improving Discharge Details Reason For Visit: SBO,MEHUL Admit Date/Time: 05/13/24 16:37 Admit Provider: Kane Nguyen Attending Provider: Kane Nguyen Primary Care Provider: JoelBernieRosamaria Hospital Course Hospital Course: This 73 years old female patient w a PMHx significant for T2DM, Hypertension, hypothyroidism, recent R TKR on 03/2024, PE on Eliquis, obesity, abdominal hernia presented to the ED for evaluation of nausea, vomiting and abdominal pain. Workup in the ED was had positive for abdominal CT findings of large umbilical hernia, measuring 13 cm cephalo caudad by 7 cm AP by 17 cm in width with loops of small bowel enter the hernia presumptively causing obstruction with small bowel proximal dilation of 5 cm. Lab work was significant for compensated metabolic alkalosis w negative lactate, Na at 130,Cr at 1.9 with baseline at 0.9. Surgical consultation recommended the application of an abdominal binder that failed to be place as hernia was not sustainably reducible; patient not deemed a surgical candidate and medical management was recommended.The patient was admitted to the medical surgical floor for further evaluation and management of MEHUL stage II, SBO with IVF, antiemetics, bowel rest with NGT . Ongoing surgical consult questioned SBO VS viral gastroenteristis; lovenox SC also initiated to bridge PE treatment. On the day of discharge the patient was hemodynamically satble with resolved MEHUL w/o electrolyte abnormality, tolerating oral intake and moving her bowels. The patient will be discharged home with home health PT and nursing for medication compliance. The patient will have to follow-up with her PCP within 7 days of discharge. Follow-up recommendation for PCP: -[facility] [place] Surgical referral for ongoing incarcerated hernia w/o necrosis in high risk patient- Not a Sx candidate at [facility] -A1C 7.9- BMP -Depressed/ flat affect on Ozempic outpatient. -Ozempic on hold Discussed with Dr. Grey Home Meds and New Rx's Prescriptions: New pantoprazole [Protonix] 40 mg tablet,delayed release (DR/EC) 40 mg PO DAILY Qty: 14 0RF prochlorperazine maleate [Compazine] 5 mg tablet 5 mg PO TID PRNQty: 15 0RF Rx Instructions: Take around meal times as needed for nausea Continued B-complex with vitamin C Capsule 1 cap PO DAILY cholecalciferol (vitamin D3) 50 mcg (2,000 unit) capsule 50 mcg PO DAILY aspirin [Aspirin Low-Strength] 81 MG tablet,chewable 81 mg PO DAILY ascorbic acid (vitamin C) 500 mg capsule 500 mg PO DAILY cetirizine [Zyrtec] 10 mg tablet 10 mg PO DAILY PRN amoxicillin 500 mg capsule 500 mg PO PRN Rx Instructions: take 4 tabs 1 hour prior to dental work mupirocin 2 % ointment 1 applic topical TID gabapentin 300 mg capsule 300 mg PO TID oxycodone 5 mg tablet 5 mg PO Q4H MDD 6 tabs PRN (Reason: severe pain) Qty: 18 0RF Rx Instructions: take one tablet up to every 4 hours as needed for severe postoperative pain lisinopril 5 MG tablet 5 mg PO DAILY multivitamin 1 EACH capsule 1 cap PO DAILY magnesium 250 mg tablet 250 mg PO DAILY insulin glargine [Lantus Solostar U-100 Insulin] 100 unit/mL (3 mL) insulin pen 5 unit SUBCUT QPM levothyroxine 175 mcg tablet 175 mcg PO DAILY@0600 simvastatin 40 mg tablet 40 mg PO DAILY metformin 1,000 mg tablet extended release 24hr 2,000 mg PO DAILY@1800 Rx Instructions: after dinner glipizide 10 mg tablet extended release 24hr 10 mg PO DAILY celecoxib 200 mg capsule 200 mg PO BID PRN (Reason: pain) Qty: 60 1RF docusate sodium [Colace] 100 mg capsule 100 mg PO BID PRNQty: 10 0RF pantoprazole 40 mg tablet,delayed release (DR/EC) 40 mg PO DAILY Qty: 30 0RF Eliquis 5 mg tablet 5 mg PO BID Qty: 40 0RF Changed acetaminophen 500 mg tablet 1,000 mg PO TID Qty: 90 3RF Rx Instructions: Take three time a day for pain for 5 days then three times a days only if needed Held Ozempic 0.25 mg or 0.5 mg (2 mg/3 mL) pen injector 2 mg subcut QWEEK Hold Instructions: Resume on 05/24/24. Do not take until you have discussed resumption with you PCP, this can cause your bowels to slow and depress your mood... Patient Comments: Pt reported change to 1mg Discontinued Eliquis 2.5 mg tablet 2.5 mg PO BID Qty: 2 0RF Rx Instructions: x 4 doses post-op then 5 mg BID Discharge Instructions Stand Alone Forms: Nursing Discharge Form Referrals: [facility]AL [facility] [place] [OTHER] - (This 73 years old female patient w a PMHx significant for T2DM, BMI 49.8, hypertension, hypothyroidism, recent R TKR on 03/2024, PE on Eliquis, morbid obesity, abdominal hernia presented to the ED for evaluation of nausea, vomiting and abdominal pain. Workup in the ED was had positive for abdominal CT findings of large umbilical hernia, measuring 13 cm cephalo caudad by 7 cm AP by 17 cm in width with loops of small bowel enter the hernia with small bowel proximal dilation of 5 cm. -[facility] [place] Surgical referral for ongoing incarcerated hernia w/o necrosis in high risk patient- Not a Sx candidate at [facility] ) Rosamaria Maldonado [Primary Care Provider] - (Follow-up with PCP within 7 days of discharge.) Activity:: Activity as Tolerated Equipment/Supplies:: Walker Diet:: heart healthy diabetic as tolerated , keep hydrated Discharge Orders Discharge Orders: Discharge Order (Routine); Ordered 05/16/24 Ordered By: Silke Xie DS: Summary Time Spent with Patient providing and/or coordinating discharge services: Greater than 30 minutes Status at Discharge Functional status at discharge: uses cane/walker Overall status at discharge: patient is progressing back to baseline Mental Status: mental status grossly normal and other (depressed) Speech and Movement: speech and movement normal Mood: anxious mood and other (depressed) Affect: sad and blunted Quality:SDOH Health Related Social Needs: Health related social needs problems with daily activi ties (Z73.9), feeling lonely/isolated (Z60.8), education (Z55.6) Exam Narrative Exam Narrative: Constitutional The patient is without acute distress HENMT: Facial structures with normal appearance Neuro:alert and oriented X4 . No neurological focal deficit Resp: Unlabored breathing, clear lung bilaterally Cardio: regular rhythm, S1, S2, + murmur GI: Abdomen is large non-tympanic, soft and minimal tenderness to LLQ, chronic incarcerated hernia left brittany-umbilical area, bowel sounds are present Extremities: strength 5/5 to bilateral lower and upper extremities Psych: RASS 0, depressed mood and flat affect. Psych Mental Status: mental status grossly normal and other (depressed) Speech and Movement: speech and movement normal Mood: anxious mood and other (depressed) Affect: sad and blunted DS: Data Vitals/I&O Vitals and I&O: Vital Signs Temperature 36.6 C 05/16/24 07:32 Temperature Source Temporal Artery Scan 05/16/24 07:32 Pulse 84 05/16/24 07:32 Pulse Rhythm Regular 05/13/24 17:35 Pulse 88 05/13/24 16:50 Respiratory Rate 20 05/16/24 07:32 Respiratory Effort Normal 05/13/24 17:35 Blood Pressure 147/61 H 05/16/24 07:32 Blood Pressure Mean 73 05/13/24 16:49 Pulse Oximetry 96 05/16/24 07:32 Oxygen Delivery Method Room Air 05/16/24 07:32 Oxygen Flow Rate 0 05/16/24 07:32 Pain Level 5 05/16/24 07:32 Comment RN notified 05/14/24 16:11 Comment placed on 2L n/c 05/13/24 14:10 Intake & Output 05/15/24 05/15/24 05/16/24 11:59 23:59 11:59 Intake Total 1550 / 3610 2060 / 3610 100 / 100 Output Total 850 / 1900 1050 / 1900 400 / 400 Balance 700 / 1710 1010 / 1710 -300 / -300 Intake: IV 1200 / 2300 1100 / 2300 100 / 100 Oral 350 / 1310 960 / 1310 Output: Gastric Drainage 200 / 200 Right Nare 200 / 200 Urine 650 / 1700 1050 / 1700 400 / 400 Other: Urine Color Yellow Yellow Yellow Urine Appearance Clear Clear Cloudy Urine Odor None Normal Comment Patient voided into bedside commode with one person assistance. pt incont of urine in bed, also used commode Stool Size Small Small Large Stool Characteristics Liquid Liquid Data Completed and Pending Labs on day of discharge: Labs from last 24 hours 05/16/24 04:27 Sodium 142 Potassium 3.5 Chloride 106 Carbon Dioxide 29.1 Anion Gap 6.9 BUN 15 Creatinine 0.8 Est GFR (CKD-EPI 2020) 78.24 Glucose 132 H Hemoglobin A1c 7.9 H Calcium 8.8 PFSH All Active Problems (Updated 05/14/24 @ 13:49 by Sabiha Jewell MD) Incarcerated ventral hernia (Acute) SBO (small bowel obstruction) (Acute) Acute kidney injury (Acute) History of total right knee replacement (Acute 04/07/24) Degenerative joint disease of right knee (Chronic) Depo medrol injection: 10/06/23 Sebaceous cyst (Acute) Senile osteoporosis (Acute) Psoriasiform eczema (Acute) Hyperlipidemia (Chronic) Hypothyroidism (Chronic) Goiter (Chronic) Obesity (Chronic) Varicose veins (Chronic) Hypertension (Chronic) Diabetes mellitus (Chronic) Sleep apnea (Chronic) Status post total knee replacement (Acute 12/21/12) Bilateral pulmonary embolism (Acute 01/22/13) Medical History Adenomatous colon polyp Heart murmur Seasonal allergies Iron (Fe) deficiency anemia Osteopenia Osteoarthritis Stress incontinence Depression Dyspepsia Hypertension History of pulmonary embolus (PE) 2012 with Left TKA Hypercholesterolemia Hypothyroid Morbid obesity Diabetes mellitus DEWEY (obstructive sleep apnea) Surgical History Hx of wisdom tooth extraction History of left knee replacement History of colonoscopy (~01/16/15) Cholecystectomy Family History Mother Macular degeneration Atrial fibrillation Breast cancer Essential hypertension Father CHF (congestive heart failure) Hypertension Hyperlipidemia Other Heart disease Social History Smoking/Tobacco Use Status: Never Smoking risk assessment performed?: Yes Alcohol Intake: current Alcohol Intake frequency: holidays/special occasions only Alcohol type: beer and wine Drug use: Never Substance use type: does not use Details: alcohol: 5 weeks ago Housing: house Do you feel safe at home: Yes Do you feel safe in your relationship?: Yes Time Spent with Patient Time Spent with Patient: 70-84 minutes4 Time was spent: preparing to see the patient(eg.review tests), obtaining and/or reviewing separately otained hiistory, ordering medications,tests, procedures, referring, communicating with other health complex care nurse, indepentently interpreting results, counseling the patient and care coordination
--- NOTE | 2024-05-16 11:34 | PT.INTREAT ---
PT Notes Visit Reasons: SBO,MEHUL Inpatient Physical Therapy Treatment Note [facility] Date: 05/16/2024 [] PRECAUTIONS:[Standard, fall risk] SUBJECTIVE: I do not know how I am going to manage at home I am so weak., I do not feel like doing anything. OBJECTIVE: []?Patient expresses increased abdominal pain with changing positions and movement patterns. She has increased stiffness in her right knee status post total knee but the 04/07/2024. ? PAIN: [] C/o abdominal cramping and pain VITALS: ?Monitored by nursing staff Therapeutic Activities ([id number]]): Direct one-on-one instruction in dynamic activities to improve functional performance. ? BED MOBILITY/TRANSFERS? Supine-sit: []?With difficulty but patient able to perform ? Sit-supine: [] With difficulty but patient able to perform? Sit-stand: []?Patient is slow reporting pain in abdomen but able to perform sit to stand SBA ?, to RW ? Stand-sit: [] ? ? RW to chair, SBA recommending at home to perform sit to stand hourly and in hospital today be performed 5 in a row patient perform slowly takes approximately 1+ minute? stand to sit to stand RW to toilet patient performs with SBA has difficulty getting off the toilet as this is significantly lower than at home. Provided skilled cues and instruction on performance and technique throughout. ? GAIT? Assistive Device: FWW ? Weight bearing: Full Assist: SBA for safety purposes only ? Distance: 80 feet ? Deviation: Slow small steps but good heel-toe gait pattern more limited due to complaints of energy and abdominal pain takes frequent breaks as feels tired and performing this.? STAIRS: Not performed? ASSESSMENT:? [] Patient is low energy and complains of difficulty moving and not wanting to move because of abdominal discomfort. The doctor has medically cleared her to go home I believe she will benefit from skilled physical therapy at home to help her manage the home situation. She certainly is capable to perform some home activity recommending hourly to perform 5 sit to stands in addition to ambulation every hour she could also substitute with leg extensions marching in place however we encouraged her for frequent change of position and avoiding laying down during the day. PLAN: Will continue POC while in the hospital TREATMENT CODE/TIME: 45117 x2 9:40-10:15 35' DISCHARGE RECOMMENDATION: Home with PT services
[2024-05-16 11:37] VITALS: BP 144/65; PULSE 84; RESP 20; TEMP 36.5; O2SAT 95
--- NOTE | 2024-05-16 11:39 | PDOC.HHF2F ---
Home Health Referral Home Health Orders Clinical synopsis of why skilled professionals are needed: This 73 years old female patient w a PMHx significant for T2DM, Hypertension, hypothyroidism, recent R TKR on 03/2024, PE on Eliquis, obesity, abdominal hernia presented to the ED for evaluation of nausea, vomiting and abdominal pain. Workup in the ED was had positive for abdominal CT findings of large umbilical hernia, measuring 13 cm cephalo caudad by 7 cm AP by 17 cm in width with loops of small bowel enter the hernia presumptively causing obstruction with small bowel proximal dilation of 5 cm. Lab work was significant for compensated metabolic alkalosis w negative lactate, Na at 130,Cr at 1.9 with baseline at 0.9. Surgical consultation recommended the application of an abdominal binder that failed to be place as hernia was not sustainably reducible; patient not deemed a surgical candidate and medical management was recommended.The patient was admitted to the medical surgical floor for further evaluation and management of MEHUL stage II, SBO with IVF, antiemetics, bowel rest with NGT . Ongoing surgical consult questioned SBO VS viral gastroenteristis; lovenox SC also initiated to bridge PE treatment. On the day of discharge the patient was hemodynamically satble with resolved MEHUL w/o electrolyte abnormality, tolerating oral intake and moving her bowels. The patient will be discharged home with home health PT and nursing for medication compliance and will have to follow-up with her PCP within 7 days of discharge. [place] for [place] [place] for ongoing incarcerated hernia w/o necrosis in high risk patient- Not a Sx candidate at [facility] -A1C 7.9- BMP -Depressed/ flat affect on Ozempic outpatient. -Ozempic on hold Discussed with Dr. Grey Registered Nurse: Check all that apply Instruct on new or changed medication(s)/assess compliance: Ordered Assess for exacerbation of medical condition, instruct patient/caregivers on signs and symptoms to report for early detection: Ordered Physical Therapist: Check all that apply Increase strength & endurance for safe mobility at home: Ordered To design/establish home maintenance program: Ordered Fall reduction therapy program for patient with history of frequent falls: Ordered Home safety evaluation and teaching/gait training including stair management (if applicable): Ordered Home Bound Status Requires the aid of supportive device (check all that apply): Walker Describe why leaving home would require a considerable and taxing effort: Requires frequent rest periods Encounter Date and Reason: I certify that a FTF encounter for this patient was performed on May 16, 2024 and that such encounter was related to the primary reason the patient requires home health services. The encounter was conducted in the following manner: By me as the certifying physician, ST[employer]ED GLASS GLAZIER HELPER, PA or By an inpatient physician, STAINED GLASS GLAZIER HELPER or PA during an inpatient stay who communicated findings to me, Certification And Authentication I certify that I composed the above information based on my clinical judgment relating to this patient's medical condition and, if applicable, clinical findings communicated to me by the NPP or inpatient physician who performed the FTF encounter. Name of Provider that will be monitoring home health services: Rosamaria Maldonado
[2024-05-16] MEDS: Prochlorperazine 5 MG TAB PO (12:01)
[2024-05-16] MEDS: Insulin Aspart 300 UNITS/3 ML PEN SC (12:27)
--- NOTE | 2024-05-16 13:02 | CMDISCH_ITS ---
Date of service: 05/16/24 Time of Service: 13:02 LACE Index Scoring Tool Questions: Length of Stay (in days): 3 Was the patient admitted via the E.D.?: Yes Comorbidities: Diabetes w/o Complication, Chronic Pulmonary Disease and Mild Liver/Renal Disease E.D. Visits: 1 Answers: Total Score: 12 Risk of Readmission: High Risk Care Management Discharge Plan Reason for Hospitalization: SBO and MEHUL Discharge Plan: Susana will be discharged home with new home health services for nursing and PT. She will follow up with her community providers and plan of care and transport with family. Susana expressed some concern about her noc turnal urinary incontinence and questioned her ability to change her bed several time a night. CM suggested she purchase pull-ups to use temporarily until the issues resolves. CM provided her with a small supply to take home for which she expressed appreciation. Patient/Family Education Needs: review discharge instructions, follow up plan, limitations and discuss Ask Me Three. Services Needed at Discharge: Home Health Care Services SDOH Health Related Social Needs: Health related social needs problems with daily activi ties (Z73.9), feeling lonely/isolated (Z60.8), education (Z55.6)
== END 2024-05-16 15:41 | disposition home health service (06) | DRG 394 ==
LOC: ER 16:16 → MS 17:12
PROVIDERS: Admitting Provider Family Medicine; Emergency Provider Emergency Medicine; PCP Nurse Practitioner Family; Responsible Provider Nurse Practitioner Acute Care; Visit Provider Family Medicine
DX: K43.0 Incisional hernia with obstruction, without gangrene (principal); N17.9 Acute kidney failure, unspecified; Z68.42 Body mass index [BMI] 45.0-49.9, adult; E03.9 Hypothyroidism, unspecified; I10 Essential (primary) hypertension; E11.9 Type 2 diabetes mellitus without complications; Z86.711 Personal history of pulmonary embolism; Z79.4 Long term (current) use of insulin; Z79.84 Long term (current) use of oral hypoglycemic drugs; Z79.01 Long term (current) use of anticoagulants; Z79.85 Long-term (current) use of injectable non-insulin antidiabetic drugs; R11.2 Nausea with vomiting, unspecified; Z96.651 Presence of right artificial knee joint; M81.0 Age-related osteoporosis without current pathological fracture; E78.5 Hyperlipidemia, unspecified; G47.30 Sleep apnea, unspecified; L30.8 Other specified dermatitis; F32.A Depression, unspecified; E66.01 Morbid (severe) obesity due to excess calories
CPT/HCPCS: 00123; 36415; 51702; 71045; 71250; 80048; 80053; 82805; 83690; 87637; 93005; 96361; 96374; 96375; 97161; 97530; 99222; 99231; 99232; 99233; 99285; 74176; 81003; 81015; 83036; 83605; 83735; 84484; 85025; 93010; 99223; 99239; J0131; J1171; J1650; J1815; J2270; J2405; J2470

== ENCOUNTER → 2024-05-20 11:09 | Outpatient (BNVA) | payer MEDICARE, SELFPAY | PROVIDERS: PCP Nurse Practitioner Family; Visit Provider Physician Assistant | DX: Z47.1 Aftercare following joint replacement surgery (principal); Z96.651 Presence of right artificial knee joint | CPT/HCPCS: 99024 ==

== ENCOUNTER 2024-05-24 14:46 | Outpatient (REF) | payer MEDICARE, SELFPAY ==
[2024-05-24 15:34] LABS: Abs Immature Grans 0.03 10^3/uL (0.0-0.06); Absolute Basophil Count 0.03 10^3/uL (0.0-0.2); Absolute Eosinophil Count 0.13 10^3/uL (0.0-0.7); Absolute Lymphocyte Count 1.52 10^3/uL (1.2-3.4); Absolute Monocyte Count 0.53 10^3/uL (0.1-0.8); Absolute Neutrophil Count 4.32 10^3/uL (1.2-6.7); Basophils % 0.5 %; HCT 36.6 % (36.0-46.0); HGB 11.2 g/dL (11.2-15.7); Immature Grans % 0.5 %; Lymphocytes % 23.2 %; MCH 28.6 pg (27.0-33.0); MCHC 30.6 % (32.0-36.0); MCV 94 fL (80-95); MPV 11.8 fL (8.0-11.0); Monocytes % 8.1 %; Neutrophils % 65.7 %; Platelet Count 419 10^3/uL (130-400); RBC 3.91 10^6/uL (3.93-5.22); RDW 15.1 % (11.7-14.6); RDW-SD 51.8 fL; WBC 6.56 10^3/uL (4.4-10.8)
[2024-05-24 16:22] LABS: ALT 23 U/L (14-59); AST 15 U/L (15-37); Albumin 2.7 g/dL (3.4-5.0); Alkaline Phosphatase 156 U/L (46-116); Anion Gap 11.1 mmol/L (3-11); BUN 17 mg/dL (7-18); Bilirubin, Total 0.3 mg/dL (0.2-1.0); CO2 24.9 mmol/L (21.0-32.0); Calcium 8.8 mg/dL (8.5-10.1); Chloride 111 mmol/L (98-107); Estimated GFR 59.86 (mL/min/1.73m2); Ferritin 76 ng/mL (8-252); Glucose 149 mg/dL (74-106); Potassium 4.2 mmol/L (3.5-5.1); Sodium 147 mmol/L (136-145); Total Protein 5.5 g/dL (6.4-8.2)
[2024-05-24 16:45] LABS: Iron 41 ug/dL (50-170); Total Iron Binding Capacity 194 ug/dL (250-450); Transferrin Sat 21 % (15-50)
== END 2024-05-24 14:47 | disposition home or self-care (01) ==
LOC: NCHCN 14:46
PROVIDERS: PCP Nurse Practitioner Family; Visit Provider Nurse Practitioner Family
DX: D50.9 Iron deficiency anemia, unspecified (principal)
CPT/HCPCS: 80053; 82728; 83540; 83550; 85025

== ENCOUNTER → 2024-07-01 14:22 | Outpatient (BNVA) | payer MEDICARE, SELFPAY | PROVIDERS: PCP Nurse Practitioner Family; Referring Provider Nurse Practitioner Family; Visit Provider Physician Assistant | DX: Z47.1 Aftercare following joint replacement surgery (principal); Z96.651 Presence of right artificial knee joint | CPT/HCPCS: 99024 ==

== ENCOUNTER 2024-08-06 06:52 | Emergency (ER) | payer MEDICARE, SELFPAY ==
--- NOTE | 2024-08-06 | DI.RAD_ITS ---
Exam(s) XR ABDOMEN FLAT PLATE EXAM: 2D digital imaging was performed. CLINICAL HISTORY: Verify NGT placement. COMPARISON: No exams were available for comparison TECHNIQUE: Supine views of the abdomen performed. FINDINGS: Exam is somewhat limited due to patient body habitus. A nasogastric tube has been inserted which projects in the superior portion of the stomach. BOWEL GAS PATTERN: No abnormally dilated loops of small bowel are noted in the mid to lower abdomen. There is residual contrast within the urinary bladder and renal collecting systems. OSSEOUS STRUCTURES: Unremarkable for age. OTHER FINDINGS: None. IMPRESSION: 1. Nasogastric tube projects in the fundus of the stomach. 2. Dilated small bowel loops, consistent with obstruction, not significantly changed from prior CT. DATA REPOSITORY: RADIATION DOSE DELIVERED:
[2024-08-06 06:54] VITALS: BP 207/96; PULSE 83; RESP 20; TEMP 36.6; O2SAT 95
[2024-08-06 07:10] VITALS: BP 207/96; PULSE 83; RESP 20; TEMP 36.6; O2SAT 95
--- NOTE | 2024-08-06 07:14 | DI.CT_ITS ---
Exam(s) CT ABDOMEN PELVIS W EXAM: CT ABDOMEN PELVIS W CLINICAL HISTORY: Vomit, suspect obstruction and strangulated hernia. TECHNIQUE: Imaging Protocol: Axial computed tomography images with coronal and sagittal reformatted images were created and reviewed CONTRAST MATERIAL: Intravenous: Omnipaque 350 Contrast volume:100 ml Oral: no COMPARISON: CT CT CHEST/ABD/PEL WO from 05/13/2024 FINDINGS: ABDOMEN and PELVIS: Lung Bases: No acute findings. Liver: Normal density. No suspicious mass. Gallbladder and biliary tract: Stable mild. No biliary dilation. Pancreas: Normal density. No abnormal calcifications or inflammatory process. No evidence of mass. Spleen: Normal. Kidneys: Normal size, contour and axis. No radiodense stones. No obstructive uropathy. No suspicious masses seen. Adrenal glands: No masses seen. Vasculature: Abdominal aorta non-dilated. Soft tissues: There is again noted to be a large umbilical hernia which contains a large quantity of fat as well as loops of bowel. The disc causes obstruction with transition point within the hernia. Bladder: No gross wall thickening. No calculi.No focal mass. Bowel: Obstruction at the distal ileum more multiple loops enter a large umbilical hernia, similar to the prior exam. No bowel wall thickening. No pneumatosis. Appendix normal. Peritoneal cavity: No ascites. No focal collection. No free air. Bones: Unremarkable for age. Reproductive organs: Unremarkable. Lymph nodes: No pathologically enlarged lymph nodes. IMPRESSION:: Large umbilical hernia containing loops of distal ileum causing obstruction. There is no evidence of pneumatosis or bowel wall thickening. Findings were called to Dr. Pete of the emergency department. RADIATION DOSE DELIVERED: 981.07mGy.cm Total DLP DATA REPOSITORY: All CT scans at this facility are submitted to the National Radiology Data Registry (NRDR) Dose Index Registry (DIR) with the [employer] (ACR). RADIATION OPTIMIZATION: All CT scans at this facility use at least one of these dose optimization techniques: automated exposure control; mA and/or kV adjustment per patient size (includes targeted exams where dose is matched to clinical indication); or iterative reconstruction.
--- NOTE | 2024-08-06 07:16 | W.ED.GENAD ---
Discharge Plan Disposition Patient Disposition: Admit to [facility] Condition: Stable Discharge Details Clinical Impression: Small bowel obstruction, Nausea & vomiting, Elevated LDH Primary Care Provider: Rosamaria Maldonado ED Provider: Hamilton Pete Home Meds and New Rx's Prescriptions: No Action B-complex with vitamin C Capsule 1 cap PO DAILY cholecalciferol (vitamin D3) 50 mcg (2,000 unit) capsule 50 mcg PO DAILY Mounjaro 2.5 mg/0.5 mL pen injector 5 mg subcut QWEEK Rx Instructions: for 4 weeks cetirizine [Zyrtec] 10 mg tablet 10 mg PO DAILY PRN amoxicillin 500 mg capsule 500 mg PO PRN Rx Instructions: take 4 tabs 1 hour prior to dental work lisinopril 5 mg tablet 2.5 mg PO DAILY multivitamin 1 EACH capsule 1 cap PO DAILY magnesium 250 mg tablet 250 mg PO DAILY levothyroxine 175 mcg tablet 175 mcg PO DAILY@0600 simvastatin 40 mg tablet 40 mg PO DAILY metformin 1,000 mg tablet extended release 24hr 2,000 mg PO DAILY@1800 Rx Instructions: after dinner glipizide 10 mg tablet extended release 24hr 10 mg PO BID acetaminophen 500 mg tablet 1,000 mg PO TID Qty: 90 3RF Rx Instructions: Take three time a day for pain for 5 days then three times a days only if needed HPI General Date/Time Provider Initiated Documentation: 08/06/24 07:14. HPI Narrative: This is a pleasant 74-year-old female with a past medical history of diabetes, hypertension, hypothyroidism, high cholesterol, previous pulmonary embolism that occurred after knee replacement surgery, known umbilical hernia, who presents today for evaluation of abdominal pain and vomiting. Patient states that around 3 AM this morning she had achy crampy sharp abdominal pain that began and woke her up out of sleep. It was associated with multiple episodes of vomiting. She has been vomiting throughout the night at this stage. No blood in her vomitus. She has not had any bowel movement for about 24 hours. She notes that her umbilical hernia has become firm and painful she denies any other complaints at this time. She states this feels similar to a previous episode of a bowel obstruction she had in the past, however she has never had pain like this at her hernia. No other complaints at this time. She is no longer on Eliquis, she recently stopped within the past week or so. Related Data Home Medications ?Medication ?Instructions ?Recorded ?Confirmed multivitamin 1 cap PO DAILY 01/22/13 08/06/24 amoxicillin 500 mg capsule 500 mg PO PRN 10/14/19 08/06/24 cetirizine 10 mg tablet (Zyrtec) 10 mg PO DAILY PRN 10/14/19 08/06/24 B-complex with vitamin C 1 cap PO DAILY 03/19/23 08/06/24 cholecalciferol (vitamin D3) 50 50 mcg PO DAILY 03/19/23 08/06/24 mcg (2,000 unit) capsule magnesium 250 mg tablet 250 mg PO DAILY 03/24/23 08/06/24 levothyroxine 175 mcg tablet 175 mcg PO DAILY@0600 04/07/24 08/06/24 metformin 1,000 mg tablet,extended 2,000 mg PO DAILY@1800 04/07/24 08/06/24 release 24hr (osmotic) simvastatin 40 mg tablet 40 mg PO DAILY 04/07/24 08/06/24 acetaminophen 500 mg tablet 1,000 mg (2 x 500 mg) PO TID #90 05/16/24 08/06/24 tabs glipizide 10 mg tablet, extended 10 mg PO BID 07/01/24 08/06/24 release 24 hr lisinopril 5 mg tablet 2.5 mg PO DAILY 07/01/24 08/06/24 tirzepatide 2.5 mg/0.5 mL 5 mg subcut QWEEK 07/01/24 08/06/24 subcutaneous pen injector (Amandeep) Previous Rx's ?Medication ?Instructions ?Recorded acetaminophen 500 mg tablet 1,000 mg (2 x 500 mg) PO TID #90 05/16/24 tabs Allergies Allergy/AdvReac Type Severity Reaction Status Date / Time nickel Allergy Intermediate Contraindic Verified 08/06/24 07:01 ated sweeteners Allergy Mild Skin Rash Uncoded 08/06/24 07:01 General Stated Complaint: Abd Prob ANTHONY: 3 Exam Narrative Exam Narrative: 1.Const: Well-nourished, Well-developed, appearing stated age 2.Eyes: PERRL, no conjunctival injection, and symmetrical lids. 3.ENT: Atraumatic external nose and ears. Moist MM. Neck: Symmetric, trachea midline, No thyromegaly. 4.CVS: +S1/S2, Peripheral pulses 2+ and equal in all extremities. Brisk capillary refill in all extremities. 5.RESP: Unlabored respiratory effort. Clear to auscultation bilaterally. No wheezes rales or rhonchi 6.GI: Mildly distended, generalized pain and achiness throughout, especially in the upper abdominal quadrants. Additionally she has a firm hard umbilical hernia which is nonreducible, notably tender. Bowel sounds are present and appear to be hypertympanic. 7.MSK: Normocephalic/Atraumatic, Extremities w/o deformity or ttp No cyanosis or clubbing, Normal movement of all extremities 8.Skin: Warm, Dry. No rashes or lesions. 9.Neuro: client advisor II-XII grossly intact. Sensation grossly intact, no focal neurologic deficits. 10.Psych: (AAO) x3. Appropriate mood and affect Course Vital Signs Vital signs: Vital Signs Temperature 36.6 C 08/06/24 06:54 Pulse 83 08/06/24 06:54 Respiratory Rate 20 08/06/24 06:54 Blood Pressure 207/96 H 08/06/24 06:54 Pulse Oximetry 95 08/06/24 06:54 Temperature 36.6 C 08/06/24 07:10 Temperature Source Oral 08/06/24 07:10 Pulse 83 08/06/24 07:10 Respiratory Rate 20 08/06/24 07:10 Blood Pressure 207/96 H 08/06/24 07:10 Blood Pressure Position Sitting 08/06/24 07:10 Pulse Oximetry 95 08/06/24 07:10 Oxygen Delivery Method Room Air 08/06/24 07:10 Oxygen Flow Rate 0 08/06/24 07:10 Pain Level 7 08/06/24 07:10 Medical Decision Making This is a pleasant 74-year-old female with a past medical history of diabetes, hypertension, hypothyroidism, high cholesterol, previous pulmonary embolism that occurred after knee replacement surgery, known umbilical hernia, who presents today for evaluation of abdominal pain and vomiting. Patient states that around 3 AM this morning she had achy crampy sharp abdominal pain that began and woke her up out of sleep. It was associated with multiple episodes of vomiting. She has been vomiting throughout the night at this stage. No blood in her vomitus. She has not had any bowel movement for about 24 hours. She notes that her umbilical hernia has become firm and painful she denies any other complaints at this time. She states this feels similar to a previous episode of a bowel obstruction she had in the past, however she has never had pain like this at her hernia. No other complaints at this time. She is no longer on Eliquis, she recently stopped within the past week or so. Exam demonstrates hypertympanic bowel sounds, distended abdomen, tenderness throughout, with focal tenderness over the umbilical hernia which also appears hard/firm and tender. No erythema or redness though. I am not able to reduce the hernia on exam. Concern for incarcerated at the very least but potentially strangulated umbilical hernia leading to subsequent obstruction. We will treat the patient's pain, rehydrate, give antiemetics, get CT imaging, monitor closely and reassess. Symptoms do not appear consistent with mesenteric ischemia at this time based on current clinical assessment. Gastroenteritis and diverticulitis less likely. 9:[address] scan shows evidence of large umbilical hernia containing loops of the distal ileum causing obstruction. Still unable to reduce the hernia on manual attempt. Patient's white count is elevated at 11.8, lactate high at 2.7. I did contact surgery Dr. Castellon, and discussed the case with him. He agrees with the need for operative management. Patient will be admitted to the medicine service with surgery on consult. I contacted Dr. Levi, and he agrees with the plan and will place admission orders. I have extensively reviewed the treatment plan with the patient. I have addressed all patient concerns at this time. I have also discussed the plan with the admitting physician and they agree with the current assessment and plan and have agreed to assume responsibility for the patient. All parties demonstrate verbal understanding and agreement with our assessment and plan at this time. The documentation in this chart was dictated using [employer] dictation software. Please excuse any dictation errors. FINDINGS: ABDOMEN and PELVIS: Lung Bases: No acute findings. Liver: Normal density. No suspicious mass. Gallbladder and biliary tract: Stable mild. No biliary dilation. Pancreas: Normal density. No abnormal calcifications or inflammatory process. No evidence of mass. Spleen: Normal. Kidneys: Normal size, contour and axis. No radiodense stones. No obstructive uropathy. No suspicious masses seen. Adrenal glands: No masses seen. Vasculature: Abdominal aorta non-dilated. Soft tissues: There is again noted to be a large umbilical hernia which contains a large quantity of fat as well as loops of bowel. The disc causes obstruction with transition point within the hernia. Bladder: No gross wall thickening. No calculi.No focal mass. Bowel: Obstruction at the distal ileum more multiple loops enter a large umbilical hernia, similar to the prior exam. No bowel wall thickening. No pneumatosis. Appendix normal. Peritoneal cavity: No ascites. No focal collection. No free air. Bones: Unremarkable for age. Reproductive organs: Unremarkable. Lymph nodes: No pathologically enlarged lymph nodes. IMPRESSION:: Large umbilical hernia containing loops of distal ileum causing obstruction. There is no evidence of pneumatosis or bowel wall thickening. Findings were called to Dr. Pete of the emergency department. Quality:SDOH Health Related Social Needs: Health related social needs daily activities lonely/isolated education PFSH All Active Problems (Updated 08/06/24 @ 09:17 by Hamilton Pete DO) Elevated LDH (Acute) Nausea & vomiting (Acute) Small bowel obstruction (Acute) History of total right knee replacement (Acute 04/07/24) Degenerative joint disease of right knee (Chronic) Depo medrol injection: 10/06/23 Sebaceous cyst (Acute) Senile osteoporosis (Acute) Psoriasiform eczema (Acute) Hyperlipidemia (Chronic) Hypothyroidism (Chronic) Goiter (Chronic) Obesity (Chronic) Varicose veins (Chronic) Hypertension (Chronic) Diabetes mellitus (Chronic) Sleep apnea (Chronic) Status post total knee replacement (Acute 12/21/12) Bilateral pulmonary embolism (Acute 01/22/13) Medical History Adenomatous colon polyp Heart murmur Seasonal allergies Iron (Fe) deficiency anemia Osteopenia Osteoarthritis Stress incontinence Depression Dyspepsia Hypertension History of pulmonary embolus (PE) 2013 with Left TKA Hypercholesterolemia Hypothyroid Morbid obesity Diabetes mellitus DEWEY (obstructive sleep apnea) Surgical History Hx of wisdom tooth extraction History of left knee replacement History of colonoscopy (~01/16/15) Cholecystectomy Family History Mother Macular degeneration Atrial fibrillation Breast cancer Essential hypertension Father CHF (congestive heart failure) Hypertension Hyperlipidemia Other Heart disease Social History Smoking/Tobacco Use Status: Never Smoking risk assessment performed?: Yes Alcohol Intake: current Alcohol Intake frequency: holidays/special occasions only Alcohol type: beer and wine Drug use: Never Substance use type: does not use Details: alcohol: 5 weeks ago Housing: house Do you feel safe at home: Yes Do you feel safe in your relationship?: Yes
[2024-08-06 07:23] LABS: Abs Immature Grans 0.03 10^3/uL (0.0-0.06); Absolute Basophil Count 0.02 10^3/uL (0.0-0.2); Absolute Eosinophil Count 0.02 10^3/uL (0.0-0.7); Absolute Lymphocyte Count 1.08 10^3/uL (1.2-3.4); Basophils % 0.2 %; Eosinophils % 0.2 %; HCT 42.6 % (36.0-46.0); HGB 13.8 g/dL (11.2-15.7); Immature Grans % 0.3 %; Lymphocytes % 9.1 %; MCH 27.5 pg (27.0-33.0); MCHC 32.4 % (32.0-36.0); MCV 85 fL (80-95); MPV 11.2 fL (8.0-11.0); Monocytes % 5.7 %; Neutrophils % 84.5 %; Platelet Count 237 10^3/uL (130-400); RBC 5.01 10^6/uL (3.93-5.22); RDW 13.9 % (11.7-14.6); RDW-SD 43.1 fL; WBC 11.84 10^3/uL (4.4-10.8)
[2024-08-06 07:24] LABS: Absolute Monocyte Count 0.67 10^3/uL (0.1-0.8); Lactate 2.7 mmol/L (<or=2.0)
[2024-08-06] MEDS: MORPHine 4 MG/ML SYR IVP (07:29)
[2024-08-06] MEDS: Ondansetron 4 MG/2 ML VIAL IVP (07:29)
[2024-08-06] MEDS: Lactated Ringers 1,000 ML 1000 ML IV (07:29)
[2024-08-06 07:42] LABS: ALT 24 U/L (14-59); AST 18 U/L (15-37); Albumin 4.2 g/dL (3.4-5.0); Alkaline Phosphatase 106 U/L (46-116); BUN 17 mg/dL (7-18); Bilirubin, Total 0.8 mg/dL (0.2-1.0); Calcium 9.6 mg/dL (8.5-10.1); Chloride 98 mmol/L (98-107); Estimated GFR 59.49 (mL/min/1.73m2); Glucose 249 mg/dL (74-106); Potassium 4.1 mmol/L (3.5-5.1); Sodium 136 mmol/L (136-145); Total Protein 7.9 g/dL (6.4-8.2)
[2024-08-06] MEDS: Normal Saline - Diluent 50 ML VIAL IJ (07:43)
[2024-08-06] MEDS: Omnipaque 350 MG/ML 100 ML BTL IJ (07:54)
[2024-08-06 08:32] LABS: INR 1.1 (0.9-1.1); PTT Activated 24.5 sec (20.6-30.2)
[2024-08-06 08:42] VITALS: BP 185/78; PULSE 93; RESP 18; TEMP 36.5; O2SAT 98
--- NOTE | 2024-08-06 10:33 | SCONE_ITS ---
Date of service: 08/06/24 Time of Service: 10:36 Assessment and Plan Assessment and plan (1) Small bowel obstruction: Status: Acute Assessment and plan: She does have a bowel obstruction that is at the level of the orifice of the hernia. I was able to review her CT scan from today, as well as 3 months ago when she saw a colleague of [facility] Dr. Crockett. The hernia has since that time, no obstruction so that is similar location, and the proximal intestine does appear similar. At that time there was slightly more proximal small bowel dilation. The reconstruction for her hernia, is quite complex to be performed at this facility, and I think would be better served had a facility with more resources. She has seen a surgeon out of [facility] [place] Dr. Medina Lama. Will reach out to [facility] [place], to see if she can be transferred to that facility. (2) Obesity: Status: Chronic Assessment and plan: She is morbidly obese, her weight is 123 kg, BMI of 45. Our cutoff for anesthesia at this facility is BMI 50, given her comorbidities, and the complex hernia repair, requiring a steep Trendelenburg position, I think is better treated at a facility with more resources. (3) Hypertension: Status: Chronic Assessment and plan: Moderate hypertension, today, she has seen a varnisher apprentice in the past, January 2024. She was cleared for right total knee arthroplasty which she underwent. (4) Diabetes mellitus: Status: Chronic Assessment and plan: Have diabetes could use better control, but is not grossly out of control. Her hemoglobin A1c measured here was 7. She currently is on appropriate medications for her diabetes. She does take Mounjaro, in some cases this can lead to bowel obstruction, although in her case I think more likely related to hernia. (5) Hypothyroidism: Status: Chronic Assessment and plan: She does take levothyroxine for this. (6) Heart murmur: Assessment and plan: On exam she does have a easily audible systolic murmur, on review of her chart, from 2023, she had a echo which showed a aortic valve gradient of 32 mmHg, and an area of 1.2 cm. She was cleared for surgery here, back in March. If she were to have surgery here, would require steep Trendelenburg position for greater than 3 hours. History of Present Illness History of Present Illness Chief Complaint: Abdominal pain Narrative: And is a 74-year-old female, she has a past medical history of diabetes, hypertension, hypothyroidism, and morbid obesity, who presents to the hospital having little over 8 hours now with acute onset of lower abdominal pain associated with nausea and vomiting. This is associated with a longstanding suprapubic and periumbilical hernia. She has experienced pain like this in the past, but never this severe. She does not report any recent heavy lifting, significant constipation,, nor other activity which could have been associated to pain in the abdomen. Has had a colonoscopy this was about 5 years ago. Reports some chronic diarrhea which she manages with Metamucil. She does have urinary incontinence. Review of Systems Narrative: General, abdominal pain as noted above otherwise negative. CV, negative. Respiratory, negative. GI, as per HPI above, patient with abdominal pain nausea vomiting secondary to hernia. , urinary incontinence as above. Musculoskeletal, recent knee replacement on 04/07/2024. Neuro, negative. Psych, negative. Endocrine history of diabetes. Skin, negative. PFSH All Active Problems (Updated 08/06/24 @ 11:10 by Percy Castellon MD) Elevated LDH (Acute) Nausea & vomiting (Acute) Small bowel obstruction (Acute) History of total right knee replacement (Acute 04/07/24) Degenerative joint disease of right knee (Chronic) Depo medrol injection: 10/06/23 Sebaceous cyst (Acute) Senile osteoporosis (Acute) Psoriasiform eczema (Acute) Hyperlipidemia (Chronic) Hypothyroidism (Chronic) Goiter (Chronic) Obesity (Chronic) Varicose veins (Chronic) Hypertension (Chronic) Diabetes mellitus (Chronic) Sleep apnea (Chronic) Status post total knee replacement (Acute 12/21/12) Bilateral pulmonary embolism (Acute 01/22/13) Medical History Adenomatous colon polyp Heart murmur Seasonal allergies Iron (Fe) deficiency anemia Osteopenia Osteoarthritis Stress incontinence Depression Dyspepsia Hypertension History of pulmonary embolus (PE) 2012 with Left TKA Hypercholesterolemia Hypothyroid Morbid obesity Diabetes mellitus DEWEY (obstructive sleep apnea) Surgical History Hx of wisdom tooth extraction History of left knee replacement History of colonoscopy (~01/16/15) Cholecystectomy Family History Mother Macular degeneration Atrial fibrillation Breast cancer Essential hypertension Father CHF (congestive heart failure) Hypertension Hyperlipidemia Other Heart disease Social History Smoking/Tobacco Use Status: Never Smoking risk assessment performed?: Yes Alcohol Intake: current Alcohol Intake frequency: holidays/special occasions only Alcohol type: beer and wine Drug use: Never Substance use type: does not use Details: alcohol: 5 weeks ago Housing: house Do you feel safe at home: Yes Do you feel safe in your relationship?: Yes Exam Narrative Exam Narrative: Patient is a 74-year-old female, she does appear in pain from her abdomen. Her vital signs show some moderate hypertension. She was examined with the medical staff member present as a cardiovascular surgical tech. Her cardiac exam elicits regular rate and rhythm, there is a blowing systolic murmur. Pulmonary exam is clear to auscultation bilaterally.. Head of bed was displaced to the neutral and 0 degree position. This did cause her some significant discomfort in her abdomen. On examination of her abdomen she does have a vaguely visible scar in the periumbilical region. The hernia is not superficially visible secondary to her body habitus. She does have a generous gynecoid fatty deposition in the subcutaneous tissue. Overlying the periumbilical region and suprapubic region there is warmth to the touch on the skin, but no visible blanching nor erythematous changes of the skin. Bowel sounds are diminished. The fascial edges of the hernia are not able to be palpated secondary to patient's body habitus. The abdomen is diffusely tender with involuntary guarding, regions of the abdomen lateral to the hernia and superior to the hernia are soft. She has normal muscular development. Her lower extremities do not have significant edema. She has a normal mood and affect. Results Last Vital Signs Temp 36.5 C 08/06/24 08:42 Pulse 93 H 08/06/24 08:42 Resp 18 08/06/24 08:42 BP 185/78 H 08/06/24 08:42 Pulse Ox 98 08/06/24 08:42 Labs 08/06/24 07:18 08/06/24 07:18 Labs: Laboratory Results - last 24 hr 08/06/24 08/06/24 07:18 08:07 WBC 11.84 H RBC 5.01 Hgb 13.8 Hct 42.6 MCV 85 MCH 27.5 MCHC 32.4 RDW 13.9 Plt Count 237 MPV 11.2 H Immature Gran % 0.3 Neutrophils % 84.5 Lymphocytes % 9.1 Monocytes % 5.7 Eosinophils % 0.2 Basophils % 0.2 Nucleated RBC % 0.0 Absolute Neutrophils 10.00 H Absolute Lymphocytes 1.08 L Absolute Monocytes 0.67 Absolute Eosinophils 0.02 Absolute Basophils 0.02 PT 11.0 INR 1.1 APTT 24.5 VBG Lactate 2.7 H* Sodium 136 Potassium 4.1 Chloride 98 Carbon Dioxide 24.0 Anion Gap 14.0 H BUN 17 Creatinine 1.0 Est GFR (CKD-EPI 2020) 59.49 Glucose 249 H Calcium 9.6 Total Bilirubin 0.8 AST 18 ALT 24 Alkaline Phosphatase 106 Total Protein 7.9 Albumin 4.[address] scan report/results: report reviewed, image reviewed and other (See comments as below in assessment and plan.)
[2024-08-06] MEDS: HYDROmorphone 2 MG/ML SYR IVP (10:55)
[2024-08-06] MEDS: Normal Saline Flush 10 ML SYR IVP (10:56)
--- NOTE | 2024-08-06 12:14 | PGE_ITS ---
Date of Service Date of service: 08/06/24 Time of Service: 12:14 Assessment and Plan Assessment and plan (1) Small bowel obstruction: Status: Acute Assessment and plan: D/W Moses Lantigua MD at [facility] surgery. Plan for ED -> ED transfer to [facility] for evaluation at that facility. Bed availablity is pending at [facility]. Objective Last Vital Signs Temp 36.5 C 08/06/24 08:42 Pulse 82 08/06/24 11:48 Resp 18 08/06/24 11:48 BP 142/78 H 08/06/24 11:48 Pulse Ox 97 08/06/24 11:48 Laboratory Results - last 24 hr 08/06/24 08/06/24 07:18 08:07 WBC 11.84 H RBC 5.01 Hgb 13.8 Hct 42.6 MCV 85 MCH 27.5 MCHC 32.4 RDW 13.9 Plt Count 237 MPV 11.2 H Immature Gran % 0.3 Neutrophils % 84.5 Lymphocytes % 9.1 Monocytes % 5.7 Eosinophils % 0.2 Basophils % 0.2 Nucleated RBC % 0.0 Absolute Neutrophils 10.00 H Absolute Lymphocytes 1.08 L Absolute Monocytes 0.67 Absolute Eosinophils 0.02 Absolute Basophils 0.02 PT 11.0 INR 1.1 APTT 24.5 VBG Lactate 2.7 H* Sodium 136 Potassium 4.1 Chloride 98 Carbon Dioxide 24.0 Anion Gap 14.0 H BUN 17 Creatinine 1.0 Est GFR (CKD-EPI 2020) 59.49 Glucose 249 H Calcium 9.6 Total Bilirubin 0.8 AST 18 ALT 24 Alkaline Phosphatase 106 Total Protein 7.9 Albumin 4.2 Time Spent with Patient Time Spent with Patient: <25 minutes Time was spent: referring, communicating with other health critical care nurse specialist
[2024-08-06 12:41] VITALS: BP 147/63; PULSE 100; RESP 18; TEMP 36.5; O2SAT 94
[2024-08-06 13:22] VITALS: BP 147/63; PULSE 100; RESP 18; TEMP 36.5; O2SAT 94
== END 2024-08-06 13:29 | disposition short-term general hospital (02) ==
PROVIDERS: Emergency Provider Student in an Organized Health Care Education/Training Program; PCP Nurse Practitioner Family
DX: K42.0 Umbilical hernia with obstruction, without gangrene (principal); R74.02 Elevation of levels of lactic acid dehydrogenase [LDH]; I10 Essential (primary) hypertension; E78.00 Pure hypercholesterolemia, unspecified; E11.9 Type 2 diabetes mellitus without complications; E03.9 Hypothyroidism, unspecified; E66.01 Morbid (severe) obesity due to excess calories; Z68.42 Body mass index [BMI] 45.0-49.9, adult; Z79.84 Long term (current) use of oral hypoglycemic drugs; Z79.85 Long-term (current) use of injectable non-insulin antidiabetic drugs; Z86.711 Personal history of pulmonary embolism
CPT/HCPCS: 36415; 80053; 96361; 96374; 96375; 99284; 99285; 74018; 74177; 83605; 85025; 85610; 85730; J1171; J2270; J2405; J3490

== ENCOUNTER 2024-09-09 10:24 | Outpatient (REF) | payer MEDICARE, SELFPAY ==
[2024-09-09 14:58] LABS: Abs Immature Grans 0.01 10^3/uL (0.0-0.06); HCT 36.8 % (36.0-46.0); HGB 11.9 g/dL (11.2-15.7); Immature Grans % 0.2 %; MCH 28.3 pg (27.0-33.0); MCHC 32.3 % (32.0-36.0); MCV 87 fL (80-95); MPV 12.2 fL (8.0-11.0); Platelet Count 242 10^3/uL (130-400); RBC 4.21 10^6/uL (3.93-5.22); RDW 14.4 % (11.7-14.6); RDW-SD 46.2 fL; WBC 5.97 10^3/uL (4.4-10.8)
[2024-09-09 15:35] LABS: ALT 23 U/L (14-59); AST 13 U/L (15-37); Albumin 3.9 g/dL (3.4-5.0); Alkaline Phosphatase 86 U/L (46-116); Bilirubin, Direct 0.1 mg/dL (0.0-0.2); Bilirubin, Total 0.6 mg/dL (0.2-1.0); Ferritin 37 ng/mL (8-252); Total Protein 6.8 g/dL (6.4-8.2)
[2024-09-09 16:31] LABS: Iron 74 ug/dL (50-170); Total Iron Binding Capacity 364 ug/dL (250-450); Transferrin Sat 20 % (15-50)
[2024-09-10 10:11] LABS: Transferrin 268 mg/dL (201-352)
== END 2024-09-09 10:25 | disposition home or self-care (01) ==
LOC: NCHCN 10:24
PROVIDERS: PCP Nurse Practitioner Family; Visit Provider Nurse Practitioner Family
DX: R79.89 Other specified abnormal findings of blood chemistry (principal); D50.9 Iron deficiency anemia, unspecified
CPT/HCPCS: 80076; 82728; 83540; 83550; 84466; 85025

== ENCOUNTER 2024-11-28 21:25 | Emergency (ER) | payer MEDICARE, SELFPAY ==
[2024-11-28] VITALS (18 sets, daily range): BP systolic 170–211; BP diastolic 74–80; PULSE 76–87; RESP 11–37; TEMP 37; O2SAT 94–99
--- NOTE | 2024-11-28 21:15 | DI.CT_ITS ---
Exam(s) CT HEAD WO EXAM: CT HEAD WO CLINICAL HISTORY: fall and head trauma. TECHNIQUE: Imaging Protocol: Axial computed tomography images with coronal and sagittal reformatted images were created and reviewed COMPARISON: No exams were available for comparison FINDINGS: Ventricles and Extra axial spaces: Normal in size and morphology for the patient's age. Hemorrhage: None. Cerebral parenchyma: No evidence of acute infarct or mass. Midline shift: None. Brainstem/Cerebellum: Normal. Bones: No skull or facial fractures. Visualized Paranasal sinuses:Clear. Mucous retention cyst or polyp in the left nasal cavity. Mastoids: Clear. Soft Tissues: Large left frontal scalp hematoma. ORBITS: Unremarkable. PITUITARY: Not enlarged. IMPRESSION: Large left frontal scalp hematoma. No acute intracranial process. The preliminary [facility] report was reviewed. RADIATION DOSE DELIVERED: 900.61mGy.cm Total DLP DATA REPOSITORY: All CT scans at this facility are submitted to the National Radiology Data Registry (NRDR) Dose Index Registry (DIR) with the [employer] (A[employer]). RADIATION OPTIMIZATION: All CT scans at this facility use at least one of these dose optimization techniques: automated exposure control; mA and/or kV adjustment per patient size (includes targeted exams where dose is matched to clinical indication); or iterative reconstruction.
--- NOTE | 2024-11-28 21:20 | W.ED.GENAD ---
Discharge Plan Disposition Patient Disposition: Home Condition: Improving Discharge Details Clinical Impression: Contusion of head, Traumatic hematoma of forehead Primary Care Provider: Rosamaria Maldonado ED Provider: Brian Grant Home Meds and New Rx's Prescriptions: Continued B-complex with vitamin C Capsule 1 cap PO DAILY cholecalciferol (vitamin D3) 50 mcg (2,000 unit) capsule 50 mcg PO DAILY Mounjaro 2.5 mg/0.5 mL pen injector 5 mg subcut QWEEK Rx Instructions: for 4 weeks amoxicillin 500 mg capsule 500 mg PO PRN Rx Instructions: take 4 tabs 1 hour prior to dental work multivitamin 1 EACH capsule 1 cap PO DAILY magnesium 250 mg tablet 250 mg PO DAILY levothyroxine 175 mcg tablet 175 mcg PO DAILY@0600 simvastatin 40 mg tablet 40 mg PO DAILY metformin 1,000 mg tablet extended release 24hr 2,000 mg PO DAILY@1800 Rx Instructions: after dinner aspirin [Adult Low Dose Aspirin] 81 mg tablet,delayed release (DR/EC) 81 mg PO DAILY acetaminophen 500 mg tablet 1,000 mg PO TID Qty: 90 3RF Rx Instructions: Take three time a day for pain for 5 days then three times a days only if needed Discharge Instructions Instructions: Head injury in adults, Minor Head Injury, Adult ED Discharge Data Discharge Physician: Brian Grant HPI General Date/Time Provider Initiated Documentation: 11/28/24 21:36. HPI Narrative: Patient presents emergency department after she was coming down to [place] and she is got new tennis shoes and she thinks she did step right tripped fell hitting her head but states that she did not pass out denies any neck pain did not see any syncope. Just reports mild pain in the frontal aspect of her head where she has got a hematoma in her left forehead Related Data Home Medications ?Medication ?Instructions ?Recorded ?Confirmed multivitamin 1 cap PO DAILY 01/22/13 11/28/24 amoxicillin 500 mg capsule 500 mg PO PRN 10/14/19 11/28/24 B-complex with vitamin C 1 cap PO DAILY 03/19/23 11/28/24 cholecalciferol (vitamin D3) 50 50 mcg PO DAILY 03/19/23 11/28/24 mcg (2,000 unit) capsule magnesium 250 mg tablet 250 mg PO DAILY 03/24/23 11/28/24 levothyroxine 175 mcg tablet 175 mcg PO DAILY@0600 04/07/24 11/28/24 metformin 1,000 mg tablet,extended 2,000 mg PO DAILY@1800 04/07/24 11/28/24 release 24hr (osmotic) simvastatin 40 mg tablet 40 mg PO DAILY 04/07/24 11/28/24 acetaminophen 500 mg tablet 1,000 mg (2 x 500 mg) PO TID #90 05/16/24 11/28/24 tabs tirzepatide 2.5 mg/0.5 mL 5 mg subcut QWEEK 07/01/24 11/28/24 subcutaneous pen injector (Mounjaro) aspirin 81 mg tablet,delayed 81 mg PO DAILY 11/28/24 11/28/24 release (Adult Low Dose Aspirin) Previous Rx's ?Medication ?Instructions ?Recorded acetaminophen 500 mg tablet 1,000 mg (2 x 500 mg) PO TID #90 05/16/24 tabs Allergies Allergy/AdvReac Type Severity Reaction Status Date / Time nickel Allergy Intermediate Contraindic Verified 11/28/24 21:34 ated sweeteners Allergy Mild Skin Rash Uncoded 11/28/24 21:34 General ANTHONY: 3 Review of Systems Narrative: Review of Systems: Constitutional: No fevers, chills, sweats Eye: No recent visual problems ENT: No ear pain, nasal congestion, sore throat Respiratory: No shortness of breath, cough Cardiovascular: No Chest pain, palpitations, syncope Gastrointestinal: No nausea, vomiting, diarrhea Genitourinary: No hematuria Zana/Lymph: Negative for bruising tendency, swollen lymph glands Endocrine: Negative for excessive thirst, excessive hunger Musculoskeletal: No back pain, neck pain, joint pain, muscle pain, decreased range of motion Integumentary: No rash, pruritus, abrasions Neurologic: Alert & oriented X 4 Psychiatric: No anxiety, depression Exam Narrative Exam Narrative: Exam; vitals signs as reported above normal Constitutional; In no acute distress, afebrile General: cooperative, healthy appearing, comfortable and no acute distress HEENT: Head: normal to inspection, no palpable skull fracture with left forehead hematoma and normocephalic Eyes: : appearance normal, both eyes and all related structures EOM intact bilaterally Pupils: PERRL : conjunctiva normal Direct ophthalmoscopy: normal light reflex, normal conjunctiva, normal visual acuity Ears: Normal TM, normal external canal Nose: normal no rhinorreha Neck no JVD, supple non tender Neck: normal visual inspection, full ROM and no lymphadenopathy Chest: normal inspection of the chest Respiratory : normal respiratory effort and able to speak in complete sentences no wheezing no rales Cardio Rate: regular rate, rhythm: regular rhythm normal heart sounds S1 and S2 no murmurs, gallops, or rubs GI : normal to inspection, normal bowel sounds, soft, non tender, non distended, no organomegaly Back/Spine/ no CVA tenderness Thoracic/Lumbar Spine: no tenderness or deformities Skin no rashes or lesions Neuro: patient alert oriented x 4 and no meningeal signs, Cranial Nerves: CN's II-XI intact bilaterally, Cognition: normal cognition, Speech: speech normal, Gait: normal gait, Depp tendon reflexes normal 2+ muscle strength 5/5 bilaterally Extremities, no edema, full range of motion, normal strength Medical Decision Making MDM: Summary: Patient presents to the emergency department after she tripped and fell in hindu landing on her forehead sustaining a hematoma to the left side of her forehead. CT scanning of the head does not show any fracture no intracranial bleed just a scalp hematoma. Paresthesias acetaminophen IV in the emergency department with reverse symptoms and she will be discharged home Data Review Analysis All the data on this patient was reviewed by me including laboratory and imaging studies as well as bedside studies performed by me Independent review of Studies Imaging CT scan as reported above negative Lab: Risk Stratification: Patient who had head trauma without loss of consciousness who will be discharged home after her CT scan is negative Differential Diagnosis: 1. Head contusion 2. Forehead hematoma 3. Skull fracture 4. Intracranial bleed 5. Consultants: Shared disposition: Patient feels better understands disposition and will follow accordingly Impression: Imaging Data Radiologic Study: Attestation: I personally reviewed and interpreted this imaging study as follows: Imaging: CT Scan Radiologist's impression: Patient Name: Susana Levi Unit #: [id number] Loc: ER Ordering Provider: Status: [facility] Primary Care Provider: Rosamaria Maldonado Date of Exam: 11/28/24 Sex: F : 1950 Age: 74 This is a preliminary report provided by [facility] after hours. It is used to guide your care until a final report is completed by an [facility] radiologist. Exam(s) PROCEDURE INFORMATION: Exam: CT Head Without Contrast Exam date and time: 11/28/2024 9:50 PM Age: 74 years old Clinical indication: Injury or trauma; Blunt trauma (contusions or hematomas); Consciousness not specified; Injury date: 11/28/24; Injury details: Fall, head trauma TECHNIQUE: Imaging protocol: Computed tomography of the head without contrast. Radiation optimization: All CT scans at this facility use at least one of these dose optimization techniques: automated exposure control; mA and/or kV adjustment per patient size (includes targeted exams where dose is matched to clinical indication); or iterative reconstruction. COMPARISON: No relevant prior studies available. FINDINGS: Brain: No intraparenchymal hemorrhage. No midline shift. No mass or hydronephrosis Cerebral ventricles: No ventriculomegaly. Paranasal sinuses: Visualized sinuses are unremarkable. No fluid levels. Mastoid air cells: Visualized mastoid air cells are well aerated. Bones: Unremarkable. No acute fracture. Soft tissues: Left frontal scalp hematoma measuring 3.5 cm with severe scalp edema. IMPRESSION: Left frontal scalp hematoma measuring 3.5 cm with severe scalp edema. No intraparenchymal hemorrhage Dictated and Authenticated by: Heaven Sánchez MD. Orderin Juanita Torres MD Ordered By: Quality:SDOH Health Related Social Needs: Health related social needs daily activities lonely/isolated education PFSH All Active Problems (Updated 11/28/24 @ 22:42 by Brian Grant MD) Traumatic hematoma of forehead (Acute) Contusion of head (Acute) History of total right knee replacement (Acute 04/07/24) Degenerative joint disease of right knee (Chronic) Depo medrol injection: 10/06/23 Sebaceous cyst (Acute) Senile osteoporosis (Acute) Psoriasiform eczema (Acute) Hyperlipidemia (Chronic) Hypothyroidism (Chronic) Goiter (Chronic) Obesity (Chronic) Varicose veins (Chronic) Hypertension (Chronic) Diabetes mellitus (Chronic) Sleep apnea (Chronic) Status post total knee replacement (Acute 12/21/12) Bilateral pulmonary embolism (Acute 01/22/13) Medical History Incarcerated ventral hernia Adenomatous colon polyp Heart murmur Seasonal allergies Iron (Fe) deficiency anemia Osteopenia Osteoarthritis Stress incontinence Depression Dyspepsia Hypertension History of pulmonary embolus (PE) 2013 with Left TKA Hypercholesterolemia Hypothyroid Morbid obesity Diabetes mellitus DEWEY (obstructive sleep apnea) Surgical History Hx of wisdom tooth extraction History of left knee replacement History of colonoscopy (~01/16/15) Cholecystectomy Family History Mother Macular degeneration Atrial fibrillation Breast cancer Essential hypertension Father CHF (congestive heart failure) Hypertension Hyperlipidemia Other Heart disease Social History Smoking/Tobacco Use Status: Never Smoking risk assessment performed?: Yes Alcohol Intake: current Alcohol Intake frequency: holidays/special occasions only Alcohol type: beer and wine Drug use: Never Substance use type: does not use Details: alcohol: 5 weeks ago Housing: house Do you feel safe at home: Yes Do you feel safe in your relationship?: Yes
--- NOTE | 2024-11-28 22:03 | DI.[facility]_ITS ---
PROCEDURE INFORMATION: Exam: CT Head Without Contrast Exam date and time: 11/28/2024 9:50 PM Age: 74 years old Clinical indication: Injury or trauma; Blunt trauma (contusions or hematomas); Consciousness not specified; Injury date: 11/28/24; Injury details: Fall, head trauma TECHNIQUE: Imaging protocol: Computed tomography of the head without contrast. Radiation optimization: All CT scans at this facility use at least one of these dose optimization techniques: automated exposure control; mA and/or kV adjustment per patient size (includes targeted exams where dose is matched to clinical indication); or iterative reconstruction. COMPARISON: No relevant prior studies available. FINDINGS: Brain: No intraparenchymal hemorrhage. No midline shift. No mass or hydronephrosis Cerebral ventricles: No ventriculomegaly. Paranasal sinuses: Visualized sinuses are unremarkable. No fluid levels. Mastoid air cells: Visualized mastoid air cells are well aerated. Bones: Unremarkable. No acute fracture. Soft tissues: Left frontal scalp hematoma measuring 3.5 cm with severe scalp edema. IMPRESSION: Left frontal scalp hematoma measuring 3.5 cm with severe scalp edema. No intraparenchymal hemorrhage Dictated and Authenticated by: Heaven Sánchez MD. Orderin Juanita Torres MD
[2024-11-28] MEDS: ACETAMINOPHEN 1,000 MG/100 ML BAG 400 MG IVPB (22:07)
== END 2024-11-29 00:08 | disposition home or self-care (01) ==
PROVIDERS: Emergency Provider Emergency Medicine Emergency Medical Services; PCP Nurse Practitioner Family
DX: S00.83XA Contusion of other part of head, initial encounter (principal); W01.0XXA Fall on same level from slipping, tripping and stumbling without subsequent striking against object, initial encounter
CPT/HCPCS: 99284; 99283; 96365; 70450; J0131

== ENCOUNTER → 2024-12-29 01:14 | Outpatient (CLI) | payer MEDICARE, SELFPAY ==
--- NOTE | 2024-12-29 | DI.MAMMO_ITS ---
Exam(s) MAMMO SCREENING EXAM: MAMMO SCREENING CLINICAL HISTORY: SCREENING, Z12.31 TECHNIQUE: Mammograms were interpreted according to the usual protocol including computer analysis with CAD system, tomosynthesis and C-view imaging. COMPARISON: 2015 through 2023 FINDINGS: The breasts are composed of scattered fibroglandular densities, Breast Density category B. No suspicious masses or suspicious microcalcifications are seen in the left breast. There is question of an area of nodularity versus overlying tissue in the anterior right breast, slightly lateral to the nipple. Spot compression views and ultrasound are requested for further evaluation. No skin thickening or abnormal axillary lymph nodes are seen. There has been no significant change in the left breast from prior exams. IMPRESSION: Right breast: BI-RADS Category 0 - Incomplete: Need additional imaging evaluation Left breast: Yearly screening mammography is recommended. Breast Density - Category B - There are scattered areas of fibroglandular density. Breast density Category C or D implies that the patient has dense breast tissue. Dense breast tissue can make it harder to find cancer on a mammogram. Dense breast tissue is also associated with an increased risk of breast cancer. This information about the result of the mammogram report was provided to the patient to raise their awareness. Use this report when you speak with the patient about their risks for breast cancer, which includes their family history. At that time, you may recommend additional screening tests (Ultrasound or MRI) as these tests may add significant information. A negative radiographic report should not delay biopsy if a dominant or clinically suspicious mass is present. Up to ten percent of cancers are not identified on mammography. A negative report may reinforce clinical impression. Adenosis and dense breasts may obscure an underlying neoplasm. False positive reports average 6 to 10%. Patient will receive a letter notifying them of these results.
== END ==
PROVIDERS: PCP Nurse Practitioner Family; Visit Provider Nurse Practitioner Family
DX: Z12.31 Encounter for screening mammogram for malignant neoplasm of breast (principal)
CPT/HCPCS: 77063; 77067

== ENCOUNTER → 2025-01-04 02:02 | Outpatient (CLI) | payer MEDICARE, SELFPAY ==
--- NOTE | 2025-01-04 | DI.US_ITS ---
Exam(s) MG MAMMO SCREEN CALL BACK UNI US BREAST RT LIMITED EXAM: MG MAMMO SCREEN CALL BACK UNI CLINICAL HISTORY: F/U [facility] MAMMO, NODULARITY VS OVERLYING TISSUE ANTERIOR RT BREAST. TECHNIQUE: Craniocaudal spot compression digital Mammography views of the rightbreast with Tomosynthesis and right breast ultrasound. COMPARISON: US US BREAST RT LIMITED from 01/04/2025 FINDINGS: Mammography/Tomosynthesis: Masses: None seen. Architectural Distortion: None seen. Microcalcifictions: No suspicious pleomorphic-type are seen. Skin Thickening/Nipple Retraction: None. Right breast US: Echotexture: Normal appearance of the glandular tissue. Shadowing: No suspicious foci. Cyst: None. Solid lesions: None seen. Ductal dilation: None. IMPRESSION: 1. No evidence of malignancy is noted. 2. Unless there is more urgent need, follow-up screening mammography is recommended, as per [place] [employer] guidelines. 3. The findings were discussed with the patient on the date of the examination. BI-RADS Category 1 - Negative Breast Density - Category B - There are scattered areas of fibroglandular density. Breast density Category C or D implies that the patient has dense breast tissue. Dense breast tissue can make it harder to find cancer on a mammogram. Dense breast tissue is also associated with an increased risk of breast cancer. This information about the result of the mammogram report was provided to the patient to raise their awareness. Use this report when you speak with the patient about their risks for breast cancer, which includes their family history. At that time, you may recommend additional screening tests (Ultrasound or MRI) as these tests may add significant information. A negative radiographic report should not delay biopsy if a dominant or clinically suspicious mass is present. Up to ten percent of cancers are not identified on mammography. A negative report may reinforce clinical impression. Adenosis and dense breasts may obscure an underlying neoplasm. False positive reports average 6 to 10%. Patient will receive a letter notifying them of these results.
== END ==
LOC: DI 02:02
PROVIDERS: PCP Nurse Practitioner Family; Visit Provider Nurse Practitioner Family
DX: Z12.31 Encounter for screening mammogram for malignant neoplasm of breast (principal); R92.8 Other abnormal and inconclusive findings on diagnostic imaging of breast
CPT/HCPCS: 76642; 77063; 77067

== ENCOUNTER 2025-02-01 12:06 | Outpatient (REF) | payer MEDICARE, SELFPAY ==
[2025-02-01 14:55] LABS: Glucose Negative (Negative)
[2025-02-01 16:04] LABS: Magnesium 1.6 mg/dL (1.6-2.6)
[2025-02-01 16:07] LABS: Cholesterol 175 mg/dL (<200); HDL Cholesterol 50 mg/dL (>40)
[2025-02-01 16:11] LABS: TSH (W/Ref FT4) 1.48 uIU/mL (0.55-4.78); Vitamin D 25 Total 30 ng/mL (30-100)
[2025-02-01 16:35] LABS: Vitamin B12 371 pg/mL (211-911)
== END 2025-02-01 12:07 | disposition home or self-care (01) ==
LOC: NCHCN 12:06
PROVIDERS: PCP Nurse Practitioner Family; Visit Provider Nurse Practitioner Family
DX: E11.9 Type 2 diabetes mellitus without complications (principal); M85.80 Other specified disorders of bone density and structure, unspecified site; E78.00 Pure hypercholesterolemia, unspecified; E03.9 Hypothyroidism, unspecified
CPT/HCPCS: 80061; 82306; 81003; 82043; 82570; 82607; 83735; 84443